=== PATIENT | female | born 1940 | race African-American/Black ===

== ENCOUNTER 2020-03-17 01:59 | Inpatient (IN) ==
[2020-03-17 02:22] VITALS: BMI 33.3
[2020-03-17 02:28] LABS: ABG BASE EXCESS 7.8 mmol/L (-2.0-2.0)
[2020-03-17 02:29] LABS: ABG ALLEN TEST POS; ABG HCO3 32.7 mmol/L (22-26)
[2020-03-17 03:08] LABS: ALBUMIN 2.9 g/dL (3.4-5.0); CALCIUM 9.1 mg/dL (8.5-10.1); CARBON DIOXIDE 31.1 mmol/L (21-32); CREATININE 1.17 mg/dL (0.55-1.02); TOTAL PROTEIN 7.7 g/dL (6.4-8.2)
[2020-03-17 03:14] LABS: BASOPHILS % (AUTO) 0.2 % (0.2-1.0); HEMATOCRIT 48.2 % (36.0-47.0); LYMPHOCYTES # (AUTO) 0.7 X10^3/uL (1.3-2.9); MEAN CORPUSCULAR HEMOGLOBIN 29.5 pg (27.0-34.0); MEAN CORPUSCULAR HGB CONC 33.2 g/dL (33.0-35.0); MEAN CORPUSCULAR VOLUME 88.9 fL (80.0-100.0); MEAN PLATELET VOLUME 8.7 fL (7.4-11.0); MONOCYTES # (AUTO) 0.7 x10^3/uL (0.3-0.8); MONOCYTES % (AUTO) 8.7 % (0.0-13.0); NEUTROPHILS # (AUTO) 6.9 x10^3/uL (2.2-4.8); NEUTROPHILS % (AUTO) 83.1 % (42.0-75.0); PLATELET COUNT 181 X10^3/uL (150.0-450.0); RED BLOOD COUNT 5.43 X10^6/uL (3.5-5.4); WHITE BLOOD COUNT 8.3 X10^3/uL (3.6-10.0)
[2020-03-17] MEDS ORDERED: SOLU-Medrol 125 MG VIAL IVP ONE (03:42)
--- NOTE | 2020-03-17 03:42 | DR.SOBA ---
HPI Time Seen Time Seen by Provider: 03/17/20 02:11 HPI Comment HPI Comment: Brought in by EMS for sob; diagnosed with covid by rapid at doctor's office 03/14/20; placed on Levaquin by er the day before; now with sats falling at home despite oxygen; cough with increased wob per daughter; no fever, chills, abd pain, n/v/d or le swelling; no cardiac hx. PMH PMH Past Medical History: Alzheimers, COPD, Dementia, Diabetes and Hypertension Past Surgical History: Yes Social History Do you use any recreational Drugs:: No ROS Review of Systems Neurological: Tingling Musculoskeletal: Left Unable to Obtain Due To: Dementia PE Vital Signs Vitals: Temperature 98.1 F Pulse Rate [Right Radial] 77 Pulse Rate 81 Respiratory Rate 30 Blood Pressure [Right Arm] 127/65 Blood Pressure 118/76 O2 Sat by Pulse Oximetry 93 General Limitations: No Limitations General Appearance: Alert and In No Apparent Distress Head Head Exam: Normal Inspection Eyes Eye exam: Normal Appearance ENT ENT Exam: Normal Exam Neck Neck Exam: Normal Inspection Chest Chest Inspection: Normal Inspection Respiratory Respiratory Exam: Bilateral: Decreased Breath Sounds Cardiovascular Cardiovascular Exam: Regular Rate and Normal Rhythm Abdominal Exam Abdominal Exam: Normal Inspection, Normal Bowel Sounds and Soft Extremities Extremities Exam: Normal Inspection Psychiatric Psychiatric Exam: Normal Affect and Normal Mood Skin Skin Exam: Warm, Dry, Intact and Normal Color COURSE Reevaluation 1st: Worsened (audible wheezing, increased wob) Consultation Call Returned: 07:37 (Dr Hyatt accepts admission.) ROR Labs Reviewed Laboratory Results Reviewed?: Yes Result Diagrams: 03/17/20 03:00 03/17/20 02:42 Laboratory: WBC 8.3 X10^3/uL (3.6-10.0) 03/17/20 03:00 RBC 5.43 X10^6/uL (3.5-5.4) H 03/17/20 03:00 Hgb 16.0 g/dL (12.0-16.0) 03/17/20 03:00 Hct 48.2 % (36.0-47.0) H 03/17/20 03:00 MCV 88.9 fL (80.0-100.0) 03/17/20 03:00 MCH 29.5 pg (27.0-34.0) 03/17/20 03:00 MCHC 33.2 g/dL (33.0-35.0) 03/17/20 03:00 RDW 13.0 % (11.6-16.5) 03/17/20 03:00 Plt Count 181 X10^3/uL (150.0-450.0) 03/17/20 03:00 MPV 8.7 fL (7.4-11.0) 03/17/20 03:00 Neut % (Auto) 83.1 % (42.0-75.0) H 03/17/20 03:00 Lymph % (Auto) 8.0 % (21.0-51.0) L 03/17/20 03:00 [place] % (Auto) 8.7 % (0.0-13.0) 03/17/20 03:00 Eos % (Auto) 0.0 % (0.9-2.9) L 03/17/20 03:00 Baso % (Auto) 0.2 % (0.2-1.0) 03/17/20 03:00 Neut # (Auto) 6.9 x10^3/uL (2.2-4.8) H 03/17/20 03:00 Lymph # (Auto) 0.7 X10^3/uL (1.3-2.9) L 03/17/20 03:00 [place] # (Auto) 0.7 x10^3/uL (0.3-0.8) 03/17/20 03:00 Eos # (Auto) 0.0 x10^3/uL (0.0-0.2) 03/17/20 03:00 Baso # (Auto) 0.0 X10^3/uL (0.0-0.1) 03/17/20 03:00 Absolute Nucleated RBC 0.1 /100WBC 03/17/20 03:00 D-Dimer Cancelled 03/17/20 02:42 Sample Site Rr 03/17/20 02:20 ABG pH 7.460 (7.35-7.45) H 03/17/20 02:20 ABG pCO2 46.0 mmHg (35.0-45.0) H 03/17/20 02:20 ABG pO2 53.0 mmHg (80.0-100.0) L 03/17/20 02:20 ABG HCO3 32.7 mmol/L (22-26) H* 03/17/20 02:20 ABG O2 Saturation 89.0 % (90-100) L 03/17/20 02:20 ABG Base Excess 7.8 mmol/L (-2.0-2.0) H 03/17/20 02:20 Dylon Test Pos 03/17/20 02:20 A-a Gradient 146.0 mmHg 03/17/20 02:20 FiO2 36.0 03/17/20 02:20 Blood Gas Comments Eladio well sw 03/17/20 02:20 Sodium 138 mmol/L (136-145) 03/17/20 02:42 Corrected Sodium 140 mmol/L (136-145) 03/17/20 02:42 Potassium 4.7 mmol/L (3.5-5.1) 03/17/20 02:42 Chloride 101 mmol/L (98-107) 03/17/20 02:42 Carbon Dioxide 31.1 mmol/L (21-32) 03/17/20 02:42 BUN 24 mg/dL (7-18) H 03/17/20 02:42 Creatinine 1.17 mg/dL (0.55-1.02) H 03/17/20 02:42 Est GFR (MDRD) Af Amer 58 (>60) L 03/17/20 02:42 Est GFR (MDRD) Non-Af 48 (>60) L 03/17/20 02:42 Glucose 191 mg/dL (65-99) H 03/17/20 02:42 POC Glucose (mg/dL) 195 mg/dL (65-99) H 03/17/20 05:53 Calcium 9.1 mg/dL (8.5-10.1) 03/17/20 02:42 Corrected Calcium 10.0 mg/dL (8.5-10.1) 03/17/20 02:42 Total Bilirubin 0.50 mg/dL (0.2-1.0) 03/17/20 02:42 AST 37 Units/L (15-37) 03/17/20 02:42 ALT 20 Units/L (12-78) 03/17/20 02:42 Alkaline Phosphatase 73 Units/L (46-116) 03/17/20 02:42 B-Natriuretic Peptide 55.6 pg/mL (0-79) 03/17/20 02:42 Total Protein 7.7 g/dL (6.4-8.2) 03/17/20 02:42 Albumin 2.9 g/dL (3.4-5.0) L 03/17/20 02:42 Globulin 4.8 g/dL (2.5-4.5) H 03/17/20 02:42 Albumin/Globulin Ratio 0.6 Ratio (1.1-2.1) L 03/17/20 02:42 XRAY XRAY Interpreted by: Self X-ray Results: cxr: bilateral infiltrates worsening since 03/13/20 xr Opioid Opioid Risk Tool Age (Pawan box if 16-45): No History of Preadolescent Sexual Abuse: No Total: 0 Total Score Risk Category: Low Risk Copyright: Cameron CARTAGENA predicting aberrant behaviors Diagnosis Discharge Problem: Pneumonia due to COVID-19 virus, Hypoxia, DNR (do not resuscitate) Dyspnea Qualifiers: Dyspnea type: shortness of breath Qualified Code(s): R06.02 - Shortness of breath Instructions Instructions: Shortness of Breath, Adult
[2020-03-17] MEDS ORDERED: ATIVAN INJ 2 MG VIAL ONE (03:56)
[2020-03-17] MEDS ORDERED: ATIVAN INJ 2 MG VIAL IVP ONE (04:00)
[2020-03-17] MEDS ORDERED: TESSALON PERLES PO PRN (05:07)
[2020-03-17] MEDS ORDERED: ACCUNEB 1.25 MG NEBULE NEB PRN (05:07)
[2020-03-17] MEDS ORDERED: TUSSIONEX PENNKINETIC SUSP PO PRN (05:07)
[2020-03-17] MEDS ORDERED: MAGIC MOUTHWASH MT PRN (05:07)
[2020-03-17] MEDS ORDERED: HumuLIN R SC PRN (05:13)
[2020-03-17] MEDS ORDERED: NS 250 ML IV 250 ML IV ONE (05:25)
[2020-03-17] MEDS ORDERED: REMDESIVIR IV ONE (05:25)
[2020-03-17] MEDS ORDERED: NS 1/2 1000 ML IV 1,000 ML IV ONE ×2 (05:26→22:26)
[2020-03-17] MEDS: REMDESIVIR 200 MG in NS 250 ML IV 250 ML IV ONE ×2 (05:40→05:55)
[2020-03-17] MEDS: NS 1/2 1000 ML IV 1,000 ML IV SCH ×3 (05:57→23:27)
[2020-03-17] MEDS ORDERED: PHARMACY CONSULT - IVERMECTIN XX SCH (06:00)
[2020-03-17] MEDS: ATIVAN INJ 2 MG VIAL IVP SCH ×4 (08:05→23:51)
[2020-03-17] MEDS ORDERED: LEVAQUIN PREMIX IV 500 MG 500 MG/100 ML BAG IV SCH (09:00)
[2020-03-17] MEDS ORDERED: ACTEMRA 400 MG in NS 100 ML IV 80 ML IV NR (10:30)
[2020-03-17] MEDS: PULMICORT NEB TX 0.5 MG NEB SCH ×2 (11:17→21:00)
[2020-03-17] MEDS: IVERMECTIN PO SCH (12:33)
[2020-03-17] MEDS: ZINC SULFATE PO SCH (12:34)
[2020-03-17] MEDS: VITAMIN D3 125 mcg (5,000 UNITS) PO SCH (12:34)
[2020-03-17] MEDS: LEVAQUIN PREMIX IV 750 MG 750 MG/150 ML BAG IV SCH (12:44)
[2020-03-17] MEDS: PEPCID 20 MG IV PREMIX* 10 MG/25 ML BAG IV SCH (12:44)
[2020-03-17] MEDS: ACCUNEB 1.25 MG NEBULE NEB SCH ×3 (13:48→21:00)
[2020-03-17] MEDS: HumuLIN R SUBCUT PRN ×2 (17:29→22:35)
[2020-03-17] MEDS: REMDESIVIR 100 MG in NS 250 ML IV 250 ML IV SCH (20:52)
[2020-03-17] MEDS: MUCOMYST (RESPIRATORY USE ONLY) NEB SCH (21:00)
[2020-03-17] MEDS: SNACK - Diabetic Appropriate PO SCH (21:41)
[2020-03-17] MEDS: MELATONIN PO SCH (22:35)
[2020-03-18] MEDS: ATIVAN INJ 2 MG VIAL IVP SCH ×7 (01:05→22:49)
[2020-03-18 03:49] LABS: ABG BASE EXCESS 9.1 mmol/L (-2.0-2.0)
[2020-03-18 03:51] LABS: ABG HCO3 35.5 mmol/L (22-26)
[2020-03-18] MEDS: SOLU-Medrol 125 MG VIAL IVP SCH ×4 (03:51→22:50)
[2020-03-18 03:52] LABS: ABG ALLEN TEST POSS
[2020-03-18] MEDS: HumuLIN R SUBCUT PRN ×3 (06:16→17:15)
[2020-03-18 06:24] LABS: BASOPHILS % (AUTO) 0.2 % (0.2-1.0); HEMATOCRIT 47.6 % (36.0-47.0); HEMOGLOBIN 15.6 g/dL (12.0-16.0); LYMPHOCYTES # (AUTO) 0.7 X10^3/uL (1.3-2.9); LYMPHOCYTES % (AUTO) 13.1 % (21.0-51.0); MEAN CORPUSCULAR HEMOGLOBIN 29.4 pg (27.0-34.0); MEAN CORPUSCULAR HGB CONC 32.7 g/dL (33.0-35.0); MEAN CORPUSCULAR VOLUME 89.6 fL (80.0-100.0); MEAN PLATELET VOLUME 9.4 fL (7.4-11.0); MONOCYTES # (AUTO) 0.6 x10^3/uL (0.3-0.8); MONOCYTES % (AUTO) 10.7 % (0.0-13.0); NEUTROPHILS # (AUTO) 4.2 x10^3/uL (2.2-4.8); PLATELET COUNT 200 X10^3/uL (150.0-450.0); RED BLOOD COUNT 5.31 X10^6/uL (3.5-5.4); RED CELL DISTRIBUTION WIDTH 13.3 % (11.6-16.5); WHITE BLOOD COUNT 5.6 X10^3/uL (3.6-10.0)
[2020-03-18 06:31] LABS: ALANINE AMINOTRANSFERASE 17 Units/L (12-78); ALBUMIN 2.6 g/dL (3.4-5.0); ALKALINE PHOSPHATASE 71 Units/L (46-116); ASPARTATE AMINO TRANSFERASE 27 Units/L (15-37); BLOOD UREA NITROGEN 23 mg/dL (7-18); CALCIUM 9.1 mg/dL (8.5-10.1); CHLORIDE 102 mmol/L (98-107); COR CA(FOR HYPOALB) 10.2 mg/dL (8.5-10.1); COR NA(FOR HYPERGLY) 143 mmol/L (136-145); CREATININE 0.99 mg/dL (0.55-1.02); SODIUM 140 mmol/L (136-145); TOTAL PROTEIN 7.4 g/dL (6.4-8.2); eGFR NON BLACK RACES 58 (>60)
--- NOTE | 2020-03-18 07:14 | RAD ---
HISTORYShortness of breathSTUDYChest AP [id number]/24/2021FINDINGSPatient is rotated to the left. The heart is mildly enlarged. No congestive heart failure is noted. The aorta is calcified. Diffuse bilateral interstitial and ground- glass infiltrates are unchanged in degree or distribution from the prior examination no pleural effus ions are identified. There is a skin fold paralleling right chest wall. Bony thorax is unremarkable.I MPRESSIONNo change diffuse bilateral interstitial and ground-glass infiltratesNo change mild cardiome izzy without congestive heart failureElectronically signed by: ARSEN MCPHERSON (Mar 18, 2020 07:13:03)
[2020-03-18] MEDS: VITAMIN D3 125 mcg (5,000 UNITS) PO SCH (08:49)
[2020-03-18] MEDS: PEPCID 20 MG IV PREMIX* 10 MG/25 ML BAG IV SCH (08:49)
[2020-03-18] MEDS: ZINC SULFATE PO SCH (08:49)
[2020-03-18] MEDS ORDERED: SOLU-Medrol 125 MG VIAL IVP SCH (09:00)
[2020-03-18] MEDS ORDERED: LOVENOX INJ 40 MG SYR SC SCH (09:00)
[2020-03-18] MEDS: ACCUNEB 1.25 MG NEBULE NEB SCH ×4 (09:25→20:35)
[2020-03-18] MEDS: PULMICORT NEB TX 0.5 MG NEB SCH ×2 (09:25→20:35)
[2020-03-18] MEDS: MUCOMYST (RESPIRATORY USE ONLY) NEB SCH ×2 (09:25→20:35)
[2020-03-18] MEDS ORDERED: VERSED ONE (11:17)
--- NOTE | 2020-03-18 11:23 | DR.H&P ---
H&P - History & Physical for Day of: H&P Date: 03/17/20 - Chief Complaint Chief Complaint: FEVER, WEAKNESS, COUGH, SOB, DECREASED APPETITE, DECREASED OXYGEN, COVID POSITIVE - History of Present Illness History of Present Illness: IS A 79 YEAR OLD PATIENT OF [facility]. SHE PRESENTED TO THE ER WITH COMPLAINTS OF FEVER, WEAKNESS, DECREASED APPETITE, COUGH, SHORTNESS OF BREATH, AND DECREASED OXYGEN SATURATIONS. SHE REPORTS THAT HER OXYGEN SATURATIONS AT HOME HAVE BEEN IN THE LOWER 80s ON ROOM AIR. SHE REPORTS TESTING POSITIVE FOR COVID-19 ON 03/14/20. AT THAT TIME, SHE WAS PLACED ON LEVAQUIN, IVERMECTIN X 2 DOSES, AZITHROMYCIN 500MG PO DAILY. SHE DENIES IMPROVEMENT DESPITE COMPLIANCE WITH MEDS AND COMPLAINS OF WORSENING SYMPTOMS. PMH INCLUDES DEMENTIA, ALZHEIMERS, HYPERLIPIDEMIA, HTN, COPD, GERD, DM II. UPON ARRIVAL TO THE ER, PATIENT WAS ON ROOM AIR. HER VITAL SIGNS WERE 98.2-90-26-89%-154/74. SHE WAS PLACED ON NASAL CANNULA AT 2 LPM. HER SATURATIONS INCREASED TO 97%. LABS WERE OBTAINED. ABNORMAL LAB VALUES INCLUDE THE FOLLOWING: RBC 5.43, HCT 48.2, D-DIMER 2.94, BUN 24, CREATININE 1.17, GLUCOSE 191, FERRITIN 774, CRP 125.10, ALBUMIN 2.9, GLOBULIN 4.8. AN ABG WAS OBTAINED AND REVEALED: PH 7.460, PC02 46, P02 53, HC03 32.7, 02 SAT 89, BASE EXCESS 7.8, A-A GRADIENT 146, FI02 36. COVID-19 POSITIVE. A CHEST XRAY WAS OBTAINED AND REVEALED: No change diffuse bilateral interstitial and ground-glass infiltrates. No change mild cardiomegaly without congestive heart failure. IN THE ER, SHE WAS GIVEN A SOLU- MEDROL 125MG IV X 1, ATIVAN 1MG IV X 1, REMDESIVIR 200MG IV X 1. SHE WAS ADMITTED TO THE HOSPITAL FOR PNEUMONIA DUE TO COVID-19 AND HYPOXIA. SHE WAS STARTED ON NS AT 75ML/HR, REMDESIVIR 100MG IV DAILY, ACTEMRA 400MG IV X 1 DOSE, LEVAQUIN 750MG IV Q48, PULMICORT NEB TX BID, ALBUTEROL NEB TX QID, MUCOMYST IN NEBS QID, XANAX 0.5MG PO DAILY PRN, ATORVASTATIN 80MG PO HS, TESSALON PERLES TID, TUSSIONEX 5ML PO Q12H PRN, DIFLUCAN 100MG PO DAILY, IVERMECTIN- PHARMACY TO DOSE, MAGIC MOUTHWASH QID, MILK OF MAG 30ML PO BID, COLACE 100MG PO HS, MELATONIN 10MG PO HS, SOLU-MEDROL 125MG IV Q6H, SINGULAIR 10MG PO HS, PROTONIX 40MG IV BID, THIAMINE 200MG IV BID, ZINC SULFATE 220MG PO DAILY, ZYRTEC 10MG PO HS, VITAMIN D3 DAILY, PEPCID 20MG IV DAILY, LOVENOX DAILY, ATIVAN 1MG IV Q4H MAGDALENA, AND HUMULIN R SLIDING SCALE. WE WILL OBTAIN AN ECHO AND ORDER A UNIT OF CONVALESCENT PLASMA. OTHERWISE, WE PLAN TO FOLLOW UP WITH AM L ABS, CHEST XRAY, ABG, AND CONTINUE TO MONITOR. TIME SPENT ON CLINICAL ASSESSMENT, REVIEWING LABS AND IMAGING, DECISION MAKING, AND DOCUMENTATION GREATER THAN 75 MINUTES - Past Medical History Past Medical History: Alzheimers, COPD, Dementia, Diabetes, Dyslipidemia, GERD, Hypertension - Past Surgical History Surgical History: Unknown - Family History Family Medical History: Coronary Artery Disease, Hypertension - Social History Does patient currently use any type of tobacco product: No Have you used tobacco products in the last 12 months: No Type of Tobacco Use: None Does any household member use tobacco: No Alcohol Use: None Drug Use: None - Medications Home Medications: No Known Drug Allergies Allergy (Verified 03/13/20 15:38) - Review of Systems Constitutional: Fever, Chills, Weakness Eyes: No Symptoms Reported ENT: No Symptoms Reported Respiratory: Cough, Shortness of Breath, SOB with Excertion, Wheezing Cardiovascular: No Symptoms Reported Gastrointestinal: No Symptoms Reported Genitourinary: No Symptoms Reported Musculoskeletal: No Symptoms Reported Skin: No Symptoms Reported Neurological: Weakness, Confusion - Physical Exam Vital Signs: Temperature 97.8 F Pulse Rate [Right Radial] 71 Pulse Rate 80 Respiratory Rate 30 Blood Pressure [Right Arm] 115/65 Blood Pressure 118/76 O2 Sat by Pulse Oximetry 94 Oriented: Person Eyes: Normal Ear: Normal Nose: Normal Throat: Normal Respiratory: Wheezes Throughout Cardiovascular: Normal : Normal Auscultation: Bowel Sounds: Normal Palpation: Normal Tenderness: Normal Skin: Normal Musculoskeletal: Normal Psychiatric: Normal Mood Description: Calm Affect: Normal Speech Pattern: Inappropriate - Assessment/Plan (1) Pneumonia due to COVID-19 virus Status: Acute Plan: ADMIT, NS AT 75ML/HR, REMDESIVIR 100MG IV DAILY, ACTEMRA 400MG IV X 1 DOSE, LEVAQUIN 750MG IV Q48, PULMICORT NEB TX BID, ALBUTEROL NEB TX QID, MUCOMYST IN NEBS QID, XANAX 0.5MG PO DAILY PRN, ATORVASTATIN 80MG PO HS, TESSALON PERLES TID, TUSSIONEX 5ML PO Q12H PRN, DIFLUCAN 100MG PO DAILY, I VERMECTIN- PHARMACY TO DOSE, MAGIC MOUTHWASH QID, MILK OF MAG 30ML PO BID, COLACE 100MG PO HS, MELATONIN 10MG PO HS, SOLU-MEDROL 125MG IV Q6H, SINGULAIR 10MG PO HS, PROTONIX 40MG IV BID, THIAMINE 200MG IV BID, ZINC SULFATE 220MG PO DAILY, ZYRTEC 10MG PO HS, VITAMIN D3 DAILY, PEPCID 20MG IV DAILY, LOVENOX DAILY, ATIVAN 1MG IV Q4H MAGDALENA, AND HUMULIN R SLIDING SCALE (2) Hypoxia Status: Acute - Allergies Allergies/Adverse Reactions: Allergies Allergy/AdvReac Type Severity Reaction Status Date / Time No Known Drug Allergies Allergy Verified 03/13/20 15:38
--- NOTE | 2020-03-18 12:09 | DR.UPDATE ---
H&P Update History and Physical Update: History and Physical reviewed and patient examined. Changes noted: NO Yes with the following: agree with H&P.... will place central line H&P Reviewed: Yes Patient was examined?: Yes Procedures (ALL) - Central Line Placement PCM.CLCO: written consent Time out performed: Yes Patient placed pm monitor/pulse ox: Yes MD prep: mask, gown, gloves Centrial line prep: chlorhexidine scrub, sterile drapes applied Local anesthsia used: lidocane 1% Ultrasound used for placement: Yes (right IJ Id'd via US...canulation visualized) Central line lumen ininserted: triple Post procedure: sutured in place, good blood return, all ports aspirated, flushed,capped, sterile dressing applied Post procedure xray: tip oc catheter in good position, no pneumothorax seen Patient tolerated procedure: Yes (versed 2mg given per Anesthesia) Complications: none
--- NOTE | 2020-03-18 12:25 | RAD ---
HISTORYCentral line placementSTUDYChest AP [id number] January 2021 4:08 a.m.FINDINGSThere is a right IJ line in good position within the superior vena cava. Heart is mildly enlarged. No congestive heart failure is noted. Diffuse bilateral interstitial and ground-glass infiltrates are unchanged compared with the earlier examination. No pleural effusions are identified. Bony thorax is unremarkable.IMPRESSIONRight IJ line in good positionNo change bilateral infiltratesElectronically signed by: ARSEN MCPHERSON (Mar 18, 2020 12:22:58)
[2020-03-18] MEDS ORDERED: HEPARIN SODIUM INJ 5000 UNITS ONE (13:26)
[2020-03-18] MEDS ORDERED: HEPARIN SODIUM INJ 5000 UNITS IVP ONE (13:30)
[2020-03-18] MEDS: HEPARIN SODIUM IN D5W 25,000 UNITS/500 ML BAG IV PRN (13:30)
[2020-03-18] MEDS ORDERED: NS 1/2 1000 ML IV 1,000 ML IV ONE (14:02)
[2020-03-18] MEDS: NS 1/2 1000 ML IV 1,000 ML IV SCH (14:11)
[2020-03-18] MEDS: ASCORBIC ACID INJ MULTI-DOSE VIAL 1,500 MG in NS 50 ML IV 50 ML IV SCH ×3 (14:15→22:50)
[2020-03-18] MEDS: PROTONIX INJ 40 MG VIAL IVP SCH ×2 (14:16→22:45)
[2020-03-18] MEDS: TESSALON PERLES PO SCH ×3 (14:16→22:45)
[2020-03-18] MEDS: ZyrTEC TAB 10 MG PO SCH (14:17)
[2020-03-18] MEDS: THIAMINE HCL INJ IVP SCH ×2 (14:18→22:50)
[2020-03-18] MEDS: DIFLUCAN PO SCH (16:15)
[2020-03-18] MEDS: MILK OF MAGNESIA PO SCH ×2 (16:15→22:59)
[2020-03-18] MEDS ORDERED: MORPHINE SULFATE INJ 2 MG INJ IVP PRN ×2 (16:16→16:32)
[2020-03-18 16:21] LABS: BILIRUBIN,URINE NEGATIVE (NEGATIVE); BLOOD/HEMOGLOBIN,URINE NEGATIVE (NEGATIVE); GLUCOSE, URINE NEGATIVE (NEGATIVE); KETONES,URINE NEGATIVE (NEGATIVE); LEUKOCYTE ESTERASE ,URINE NEGATIVE (NEGATIVE); NITRITES,URINE NEGATIVE (NEGATIVE); PROTEIN,URINE 1+ (NEGATIVE); UROBILINOGEN,URINE NORMAL (NORMAL)
[2020-03-18] MEDS ORDERED: MORPHINE SULFATE INJ 2 MG INJ ONE (16:21)
[2020-03-18 16:30] LABS: APPEARANCE,URINE CLEAR (CLEAR); COLOR,URINE YELLOW (YELLOW); RBC,URINE NONE SEEN /HPF (0-3)
[2020-03-18 16:31] LABS: BACTERIA,URINE NEGATIVE /HPF (NEGATIVE); COARSE GRANULAR CASTS,URINE RARE /HPF (NEGATIVE); SQUAMOUS EPITHELIAL CELL,UR NEGATIVE /HPF (NEGATIVE)
[2020-03-18] MEDS: SINGULAIR TAB 10 MG PO SCH (22:51)
[2020-03-18] MEDS: REMDESIVIR 100 MG in NS 250 ML IV 250 ML IV SCH (22:51)
[2020-03-18] MEDS: MELATONIN PO SCH (23:00)
[2020-03-18] MEDS: LIPITOR TAB 80 MG PO SCH (23:00)
[2020-03-18] MEDS: COLACE CAP 100 MG PO SCH (23:01)
[2020-03-19] MEDS: NS 1/2 1000 ML IV 1,000 ML IV SCH ×3 (00:28→23:18)
[2020-03-19] MEDS: ATIVAN INJ 2 MG VIAL IVP SCH ×6 (00:30→21:29)
[2020-03-19] MEDS: SOLU-Medrol 125 MG VIAL IVP SCH ×4 (03:00→21:30)
[2020-03-19] MEDS: ASCORBIC ACID INJ MULTI-DOSE VIAL 1,500 MG in NS 50 ML IV 50 ML IV SCH ×4 (03:00→21:30)
[2020-03-19] MEDS ORDERED: NS 1/2 1000 ML IV 1,000 ML IV ONE ×2 (04:42→23:10)
[2020-03-19 04:47] LABS: ABG BASE EXCESS 7.6 mmol/L (-2.0-2.0)
[2020-03-19 04:48] LABS: ABG ALLEN TEST POS; ABG HCO3 34.7 mmol/L (22-26)
[2020-03-19] MEDS: TESSALON PERLES PO SCH ×3 (06:18→21:31)
[2020-03-19] MEDS: HumuLIN R SUBCUT PRN ×4 (07:14→23:27)
--- NOTE | 2020-03-19 07:21 | RAD ---
HISTORYReason For StudySTUDYCHEST, 1 VIEWCOMPARISONOne day prior.TECHNIQUEAP view of the chest, 2 imagesFINDINGSRight IJ central line in good position.The cardiac and mediastinal contours appear stable. No significant change in bilateral airspace and interstitial opacities. Interface at the upper peripheral right lung is favored to be a skin fold rather than pneumothorax. No large pleural effusion.IMPRESSIONInterface at the right upper lung is favored to be a skin fold rather than pneumothorax. Consider short interval repeat. Otherwise no significant change.Electronically signed by: Alf Smith (Mar 19, 2020 07:20:12)
[2020-03-19] MEDS: SNACK - Diabetic Appropriate PO SCH ×2 (07:39→23:18)
[2020-03-19] MEDS: ACCUNEB 1.25 MG NEBULE NEB SCH ×4 (08:01→20:50)
[2020-03-19] MEDS: PULMICORT NEB TX 0.5 MG NEB SCH ×2 (08:01→20:50)
[2020-03-19] MEDS: MUCOMYST (RESPIRATORY USE ONLY) NEB SCH ×2 (08:01→20:50)
--- NOTE | 2020-03-19 09:02 | PCM.PROG ---
Progress Note - Progress Note for Day of Date of Exam: 03/18/20 - Subjective Subjective: IS BEING TREATED FOR PNEUMONIA DUE TO COVID-19 AND HYPOXIA. TODAY, SHE IS LYING IN BED WITH EYES CLOSED ON MORNING ROUNDS. SHE OPENS EYES TO VERBAL STIMULI, BUT SHE IS DISORIENTED AND DOES NOT FOLLOW COMMANDS. STAFF REPORTS THAT SHE HAS BEEN DISORIENTED AND AGITATED THROUGHOUT THE NIGHT. SHE DOES HAVE A PMH OF DEMENTIA AND ALZHEIMERS. SHE CONTINUES WITH WEAKNESS AND A NON-PRODUCTIVE COUGH THIS MORNING. SHE REMAINS ON NASAL CANNULA AT 5-6 LITERS/MINUTE. HER SATURATIONS HAVE BEEN 90-96% THIS MORNING AND THROUGHOUT THE NIGHT. ON EXAMINATION, HEART IS REGULAR IN RATE AND RHYTHM. BILATERAL LUNGS ARE NOTED WITH RALES THROUGHOUT. ABDOMEN IS ROUND, SOFT, AND NON-TENDER WITH NORMAL BOWEL SOUNDS NOTED IN ALL QUADRANTS. HER VITALS THIS MORNING ARE: 97.7-78-40-95%-142/71. LABS WERE OBTAINED. ABNORMAL LAB VALUES INCLUDE THE FOLLOWING: HCT 47.6, D-DIMER 4.88, BUN 23, GLUCOSE 219, CORRECTED CALCIUM 10.2, FERRITIN 993, CRP 119.50, ALBUMIN 2.6, GLOBULIN 4.8. BLOOD CULTURES ARE PENDING. ABG WAS OBTAINED AND REVEALED: PH 7.470, PC02 26, P02 63, HC03 18.9, 02 SAT 93, A-A GRADIENT 218, FI02 44. A CHEST XRAY WAS OBTAINED AND REVEALED: Right IJ line in good position. No change bilateral infiltrates. SHE IS CURRENTLY RECEIVING NS AT 75ML/HR, REMDESIVIR 100MG IV DAILY, ACTEMRA 400MG IV X 1 DOSE, LEVAQUIN 750MG IV Q48, PULMICORT NEB TX BID, ALBUTEROL NEB TX QID, MUCOMYST IN NEBS QID, XANAX 0.5MG PO DAILY PRN, ATORVASTATIN 80MG PO HS, TESSALON PERLES TID, TUSSIONEX 5ML PO Q12H PRN, DIFLUCAN 100MG PO DAILY, IVERMECTIN- PHARMACY TO DOSE, MAGIC MOUTHWASH QID, MILK OF MAG 30ML PO BID, COLACE 100MG PO HS, MELATONIN 10MG PO HS, SOLU-MEDROL 125MG IV Q6H, SINGULAIR 10MG PO HS, PROTONIX 40MG IV BID, THIAMINE 200MG IV BID, ZINC SULFATE 220MG PO DAILY, ZYRTEC 10MG PO HS, VITAMIN D3 DAILY, PEPCID 20MG IV DAILY, LOVENOX DAILY, ATIVAN 1MG IV Q4H MAGDALENA, AND HUMULIN R SLIDING SCALE. WE HAVE ORDERED ONE UNIT OF CONVALESCENT PLAMA TO BE TRANSFUSED WHEN IT IS AVAILABLE. WE WILL DISCONTINUE LOVENOX AND START A HEPARIN DRIP. OTHERWISE,WE PLAN TO FOLLOW UP WITH AM LABS, CHEST XRAY, ABG, AND CONTINUE TO MONITOR. TIME SPENT ON CLINICAL ASSESSMENT, REVIEWING LABS AND IMAGING, DECISION MAKING, AND DOCUMENTATION GREATER THAN 75 MINUTES - Past Medical Family Social History Allergies: Allergies No Known Drug Allergies Allergy (Verified 03/13/20 15:38) - Vital Signs and I&O's Vital Signs: Temperature 97.5 F Pulse Rate [Right Radial] 83 Pulse Rate 79 Respiratory Rate 36 Blood Pressure [Right Arm] 168/75 Blood Pressure 118/76 O2 Sat by Pulse Oximetry 97 Intake and Output: Intake & Output 03/16/20 03/17/20 03/18/20 03/19/20 11:59 11:59 11:59 11:59 Intake Total 980 / 980 1415 / 1415 Balance 980 / 980 1415 / 1415 - Physical Exam Oriented: Not Oriented Eyes: Normal Ear: Normal Nose: Normal Throat: Normal Respiratory: Diminished, Rales Cardiovascular: Normal : Normal Auscultation: Bowel Sounds: Normal Palpation: Normal Tenderness: Normal Skin: Normal Musculoskeletal: Normal Psychiatric: Normal Mood Description: Calm Affect: Normal Speech Pattern: Unclear - Laboratory and Diagnostics Result Diagrams: 03/18/20 05:00 03/18/20 05:00 Labs: Laboratory WBC 5.6 X10^3/uL (3.6-10.0) 03/18/20 05:00 RBC 5.31 X10^6/uL (3.5-5.4) 03/18/20 05:00 Hgb 15.6 g/dL (12.0-16.0) 03/18/20 05:00 Hct 47.6 % (36.0-47.0) H 03/18/20 05:00 MCV 89.6 fL (80.0-100.0) 03/18/20 05:00 MCH 29.4 pg (27.0-34.0) 03/18/20 05:00 MCHC 32.7 g/dL (33.0-35.0) L 03/18/20 05:00 RDW 13.3 % (11.6-16.5) 03/18/20 05:00 Plt Count 200 X10^3/uL (150.0-450.0) 03/18/20 05:00 MPV 9.4 fL (7.4-11.0) 03/18/20 05:00 Neut % (Auto) 76.0 % (42.0-75.0) H 03/18/20 05:00 Lymph % (Auto) 13.1 % (21.0-51.0) L 03/18/20 05:00 [place] % (Auto) 10.7 % (0.0-13.0) 03/18/20 05:00 Eos % (Auto) 0.0 % (0.9-2.9) L 03/18/20 05:00 Baso % (Auto) 0.2 % (0.2-1.0) 03/18/20 05:00 Neut # (Auto) 4.2 x10^3/uL (2.2-4.8) 03/18/20 05:00 Lymph # (Auto) 0.7 X10^3/uL (1.3-2.9) L 03/18/20 05:00 [place] # (Auto) 0.6 x10^3/uL (0.3-0.8) 03/18/20 05:00 Eos # (Auto) 0.0 x10^3/uL (0.0-0.2) 03/18/20 05:00 Baso # (Auto) 0.0 X10^3/uL (0.0-0.1) 03/18/20 05:00 Absolute Nucleated RBC 0.3 /100WBC 03/18/20 05:00 PT 14.4 SECONDS (11.8-14.3) 03/18/20 05:00 INR Target Range - 03/18/20 05:00 INR 1.15 (0.8-1.3) 03/18/20 05:00 APTT 92.8 SECONDS (22.9-36.5) H 03/19/20 01:45 PTT Comment - 03/19/20 01:45 D-Dimer 4.88 ug/ml (0.0-0.57) H* 03/18/20 05:00 Sample Site Rr 03/19/20 04:40 ABG pH 7.370 (7.35-7.45) 03/19/20 04:40 ABG pCO2 60.0 mmHg (35.0-45.0) H* 03/19/20 04:40 ABG pO2 58.0 mmHg (80.0-100.0) L 03/19/20 04:40 ABG HCO3 34.7 mmol/L (22-26) H* 03/19/20 04:40 ABG O2 Saturation 89.0 % (90-100) L 03/19/20 04:40 ABG Base Excess 7.6 mmol/L (-2.0-2.0) H 03/19/20 04:40 Dylon Test Pos 03/19/20 04:40 A-a Gradient 152.0 mmHg 03/19/20 04:40 FiO2 40.0 03/19/20 04:40 Blood Gas Comments Eladio kalina, 03/19/20 04:40 Sodium 140 mmol/L (136-145) 03/18/20 05:00 Corrected Sodium 143 mmol/L (136-145) 03/18/20 05:00 Potassium 4.8 mmol/L (3.5-5.1) 03/18/20 05:00 Chloride 102 mmol/L (98-107) 03/18/20 05:00 Carbon Dioxide 31.0 mmol/L (21-32) 03/18/20 05:00 BUN 23 mg/dL (7-18) H 03/18/20 05:00 Creatinine 0.99 mg/dL (0.55-1.02) 03/18/20 05:00 Est GFR (MDRD) Af Amer > 60 (>60) 03/18/20 05:00 Est GFR (MDRD) Non-Af 58 (>60) L 03/18/20 05:00 Glucose 219 mg/dL (65-99) H 03/18/20 05:00 POC Glucose (mg/dL) 240 mg/dL (65-99) H 03/19/20 06:24 Calcium 9.1 mg/dL (8.5-10.1) 03/18/20 05:00 Corrected Calcium 10.2 mg/dL (8.5-10.1) H 03/18/20 05:00 Ferritin 993 ng/mL (8-252) H 03/18/20 05:00 Total Bilirubin 0.50 mg/dL (0.2-1.0) 03/18/20 05:00 AST 27 Units/L (15-37) 03/18/20 05:00 ALT 17 Units/L (12-78) 03/18/20 05:00 Alkaline Phosphatase 71 Units/L (46-116) 03/18/20 05:00 C-Reactive Protein 119.50 mg/L (0-3.0) H 03/18/20 05:00 B-Natriuretic Peptide 43.8 pg/mL (0-79) 03/18/20 05:00 Total Protein 7.4 g/dL (6.4-8.2) 03/18/20 05:00 Albumin 2.6 g/dL (3.4-5.0) L 03/18/20 05:00 Globulin 4.8 g/dL (2.5-4.5) H 03/18/20 05:00 Albumin/Globulin Ratio 0.5 Ratio (1.1-2.1) L 03/18/20 05:00 Specimen Type Catherized urine 03/18/20 16:00 Urine Color Yellow (YELLOW) 03/18/20 16:00 Urine Appearance Clear (CLEAR) 03/18/20 16:00 Urine pH 6.0 (5.0 - 8.0) 03/18/20 16:00 Ur Specific [place] 1.025 (1.000-1.030) 03/18/20 16:00 Urine Protein 1+ (NEGATIVE) 03/18/20 16:00 Urine Glucose (UA) Negative (NEGATIVE) 03/18/20 16:00 Urine Ketones Negative (NEGATIVE) 03/18/20 16:00 Urine Occult Blood Negative (NEGATIVE) 03/18/20 16:00 Urine Nitrite Negative (NEGATIVE) 03/18/20 16:00 Urine Bilirubin Negative (NEGATIVE) 03/18/20 16:00 Urine Urobilinogen Normal (NORMAL) 03/18/20 16:00 Ur Leukocyte Esterase Negative (NEGATIVE) 03/18/20 16:00 Urine RBC None seen /HPF (0-3) 03/18/20 16:00 Urine WBC None seen /HPF (0-5) 03/18/20 16:00 Ur Squamous Epith Cells Negative /HPF (NEGATIVE) 03/18/20 16:00 Urine Bacteria Negative /HPF (NEGATIVE) 03/18/20 16:00 Coarse Granular Casts Rare /HPF (NEGATIVE) 03/18/20 16:00 Ur Culture Indicated? No/not indicated 03/18/20 16:00 Blood Type A POSITIVE 03/17/20 11:00 - Plan (1) Pneumonia due to COVID-19 virus Status: Acute Plan: NS AT 75ML/HR, REMDESIVIR 100MG IV DAILY, ACTEMRA 400MG IV X 1 DOSE, LEVAQUIN 750MG IV Q48, PULMICORT NEB TX BID, ALBUTEROL NEB TX QID, MUCOMYST IN NEBS QID, XANAX 0.5MG PO DAILY PRN, ATORVASTATIN 80MG PO HS, TESSALON PERLES TID, TUSSIONEX 5ML PO Q12H PRN, DIFLUCAN 100MG PO DAILY, IVERMECTIN- PHARMACY TO DOSE, MAGIC MOUTHWASH QID, MILK OF MAG 30ML PO BID, COLACE 100MG PO HS, MELATONIN 10MG PO HS, SOLU-MEDROL 125MG IV Q6H, SINGULAIR 10MG PO HS, PROTONIX 40MG IV BID, THIAMINE 200MG IV BID, ZINC SULFATE 220MG PO DAILY, ZYRTEC 10MG PO HS, VITAMIN D3 DAILY, PEPCID 20MG IV DAILY, HEPARIN DRIP, ATIVAN 1MG IV Q4H MAGDALENA, AND HUMULIN R SLIDING SCALE (2) Hypoxia Status: Acute
[2020-03-19 09:04] LABS: BASOPHILS % (AUTO) 0.3 % (0.2-1.0); HEMATOCRIT 44.8 % (36.0-47.0); HEMOGLOBIN 14.6 g/dL (12.0-16.0); LYMPHOCYTES # (AUTO) 0.4 X10^3/uL (1.3-2.9); LYMPHOCYTES % (AUTO) 6.6 % (21.0-51.0); MEAN CORPUSCULAR HEMOGLOBIN 29.2 pg (27.0-34.0); MEAN CORPUSCULAR HGB CONC 32.5 g/dL (33.0-35.0); MEAN CORPUSCULAR VOLUME 89.8 fL (80.0-100.0); MEAN PLATELET VOLUME 8.9 fL (7.4-11.0); MONOCYTES # (AUTO) 0.5 x10^3/uL (0.3-0.8); MONOCYTES % (AUTO) 7.2 % (0.0-13.0); NEUTROPHILS # (AUTO) 5.8 x10^3/uL (2.2-4.8); NEUTROPHILS % (AUTO) 85.9 % (42.0-75.0); PLATELET COUNT 229 X10^3/uL (150.0-450.0); RED BLOOD COUNT 4.99 X10^6/uL (3.5-5.4); RED CELL DISTRIBUTION WIDTH 13.1 % (11.6-16.5); WHITE BLOOD COUNT 6.8 X10^3/uL (3.6-10.0)
[2020-03-19 09:24] LABS: ALANINE AMINOTRANSFERASE 17 Units/L (12-78); ALBUMIN 2.3 g/dL (3.4-5.0); ALKALINE PHOSPHATASE 60 Units/L (46-116); ASPARTATE AMINO TRANSFERASE 19 Units/L (15-37); BLOOD UREA NITROGEN 23 mg/dL (7-18); CALCIUM 8.5 mg/dL (8.5-10.1); CARBON DIOXIDE 29.7 mmol/L (21-32); CHLORIDE 104 mmol/L (98-107); COR CA(FOR HYPOALB) 9.9 mg/dL (8.5-10.1); COR NA(FOR HYPERGLY) 145 mmol/L (136-145); CREATININE 1.03 mg/dL (0.55-1.02); SODIUM 141 mmol/L (136-145); TOTAL PROTEIN 6.4 g/dL (6.4-8.2); eGFR NON BLACK RACES 55 (>60)
[2020-03-19] MEDS: DIFLUCAN PO SCH (09:44)
[2020-03-19] MEDS: MILK OF MAGNESIA PO SCH ×2 (09:44→21:40)
[2020-03-19] MEDS: LEVAQUIN PREMIX IV 750 MG 750 MG/150 ML BAG IV SCH (09:44)
[2020-03-19] MEDS: PEPCID 20 MG IV PREMIX* 10 MG/25 ML BAG IV SCH (09:45)
[2020-03-19] MEDS: THIAMINE HCL INJ IVP SCH (09:45)
[2020-03-19] MEDS: PROTONIX INJ 40 MG VIAL IVP SCH ×2 (09:45→21:32)
[2020-03-19] MEDS: VITAMIN D3 125 mcg (5,000 UNITS) PO SCH (09:45)
[2020-03-19] MEDS: ZyrTEC TAB 10 MG PO SCH (09:46)
[2020-03-19] MEDS: ZINC SULFATE PO SCH (09:46)
[2020-03-19] MEDS: HEPARIN SODIUM IN D5W 25,000 UNITS/500 ML BAG IV PRN (11:57)
--- NOTE | 2020-03-19 12:03 | PCM.PROG ---
Progress Note - Progress Note for Day of Date of Exam: 03/19/20 - Subjective Subjective: IS BEING TREATED FOR PNEUMONIA DUE TO COVID-19 AND HYPOXIA. TODAY, SHE IS LYING IN BED WITH EYES CLOSED ON MORNING ROUNDS. SHE OPENS EYES TO VERBAL STIMULI, BUT SHE IS DISORIENTED AND DOES NOT FOLLOW COMMANDS. STAFF REPORTS THAT SHE CONTINUED WITH DISORIENTATION AND AGITATION THROUGHOUT THE NIGHT. SHE DOES HAVE A PMH OF DEMENTIA AND ALZHEIMERS. SHE CONTINUES WITH WEAKNESS AND A NON-PRODUCTIVE COUGH THIS MORNING. SHE REMAINS ON NASAL CANNULA AT 5 LITERS/MINUTE. HER SATURATIONS HAVE BEEN 86-95% THIS MORNING AND THROUGHOUT THE NIGHT. ON EXAMINATION, HEART IS REGULAR IN RATE AND RHYTHM. BILATERAL LUNGS ARE NOTED WITH RALES THROUGHOUT. ABDOMEN IS ROUND, SOFT, AND NON-TENDER WITH N ORMAL BOWEL SOUNDS NOTED IN ALL QUADRANTS. HER VITALS THIS MORNING ARE: 97.5-82-36-92%NC-142/73. LABS WERE OBTAINED. ABNORMAL LAB VALUES INCLUDE THE FOLLOWING: D-DIMER 3.08, BUN 23, CREATININE 1.03, GLUCOSE 261, FERRITIN 970, CRP 44, ALBUMIN 2.3. BLOOD CULTURES ARE PENDING. ABG WAS OBTAINED AND REVEALED: PH 7.470, PC02 26, P02 63, HC03 18.9, 02 SAT 93, A-A GRADIENT 218, FI02 44. A CHEST XRAY WAS OBTAINED AND REVEALED: Interface at the right upper lung is favored to be a skin fold rather than pneumothorax. Consider short interval repeat. Otherwise no significant change. SHE IS CURRENTLY RECEIVING NS AT 75ML/HR, REMDESIVIR 100MG IV DAILY, ACTEMRA 400MG IV X 1 DOSE, LEVAQUIN 750MG IV Q48, PUL MICORT NEB TX BID, ALBUTEROL NEB TX QID, MUCOMYST IN NEBS QID, XANAX 0.5MG PO DAILY PRN, ATORVASTATIN 80MG PO HS, TESSALON PERLES TID, TUSSIONEX 5ML PO Q12H PRN, DIFLUCAN 100MG PO DAILY, IVERMECTIN- PHARMACY TO DOSE, MAGIC MOUTHWASH QID, MILK OF MAG 30ML PO BID, COLACE 100MG PO HS, MELATONIN 10MG PO HS, SOLU-MEDROL 125MG IV Q6H, SINGULAIR 10MG PO HS, PROTONIX 40MG IV BID, THIAMINE 200MG IV BID, ZINC SULFATE 220MG PO DAILY, ZYRTEC 10MG PO HS, VITAMIN D3 DAILY, PEPCID 20MG IV DAILY, HEPARIN DRIP, ATIVAN 1MG IV Q4H MAGDALENA, AND HUMULIN R SLIDING SCALE. WE WILL ADD GEODON 20MG IM BID. WE HAVE ORDERED ONE UNIT OF [facility] TO BE TRANSFUSED WHEN IT IS AVAILABLE. OTHERWISE, WE PLAN TO FOLLOW UP WITH AM LABS, CHEST XRAY, ABG, AND CONTINUE TO MONITOR. TIME SPENT ON CLINICAL ASSESSMENT, REVIEWING LABS AND IMAGING, DECISION MAKING, AND DOCUMENTATION GREATER THAN 75 MINUTES - Past Medical Family Social History Past Med/Fam/Surg Hx: No changes since H&P Allergies: Allergies No Known Drug Allergies Allergy (Verified 03/13/20 15:38) - Review of Systems ROS: No change since H&P - Vital Signs and I&O's Vital Signs: Temperature 97.5 F Pulse Rate [Right Radial] 82 Pulse Rate 79 Respiratory Rate 40 Blood Pressure [Right Arm] 122/71 Blood Pressure 118/76 O2 Sat by Pulse Oximetry 86 Intake and Output: Intake & Output 03/17/20 03/18/20 03/19/20 03/20/20 11:59 11:59 11:59 11:59 Intake Total 980 / 980 1675 / 1675 Balance 980 / 980 1675 / 1675 - Physical Exam Oriented: Not Oriented Eyes: Normal Ear: Normal Nose: Normal Throat: Normal Respiratory: Diminished, Rales Cardiovascular: Normal : Normal Auscultation: Bowel Sounds: Normal Palpation: Normal Tenderness: Normal Skin: Normal Musculoskeletal: Normal Psychiatric: Agitation Mood Description: Anxious Affect: Anxious Speech Pattern: Unclear - Laboratory and Diagnostics Result Diagrams: 03/19/20 08:11 03/19/20 08:11 Labs: Laboratory WBC 6.8 X10^3/uL (3.6-10.0) 03/19/20 08:11 RBC 4.99 X10^6/uL (3.5-5.4) 03/19/20 08:11 Hgb 14.6 g/dL (12.0-16.0) 03/19/20 08:11 Hct 44.8 % (36.0-47.0) 03/19/20 08:11 MCV 89.8 fL (80.0-100.0) 03/19/20 08:11 MCH 29.2 pg (27.0-34.0) 03/19/20 08:11 MCHC 32.5 g/dL (33.0-35.0) L 03/19/20 08:11 RDW 13.1 % (11.6-16.5) 03/19/20 08:11 Plt Count 229 X10^3/uL (150.0-450.0) 03/19/20 08:11 MPV 8.9 fL (7.4-11.0) 03/19/20 08:11 Neut % (Auto) 85.9 % (42.0-75.0) H 03/19/20 08:11 Lymph % (Auto) 6.6 % (21.0-51.0) L 03/19/20 08:11 [place] % (Auto) 7.2 % (0.0-13.0) 03/19/20 08:11 Eos % (Auto) 0.0 % (0.9-2.9) L 03/19/20 08:11 Baso % (Auto) 0.3 % (0.2-1.0) 03/19/20 08:11 Neut # (Auto) 5.8 x10^3/uL (2.2-4.8) H 03/19/20 08:11 Lymph # (Auto) 0.4 X10^3/uL (1.3-2.9) L 03/19/20 08:11 [place] # (Auto) 0.5 x10^3/uL (0.3-0.8) 03/19/20 08:11 Eos # (Auto) 0.0 x10^3/uL (0.0-0.2) 03/19/20 08:11 Baso # (Auto) 0.0 X10^3/uL (0.0-0.1) 03/19/20 08:11 Absolute Nucleated RBC 0.3 /100WBC 03/19/20 08:11 PT 14.4 SECONDS (11.8-14.3) 03/18/20 05:00 INR Target Range - 03/18/20 05:00 INR 1.15 (0.8-1.3) 03/18/20 05:00 APTT 43.6 SECONDS (22.9-36.5) H 03/19/20 08:09 PTT Comment - 03/19/20 08:09 D-Dimer 3.08 ug/ml (0.0-0.57) H* 03/19/20 08:09 Sample Site Rr 03/19/20 04:40 ABG pH 7.370 (7.35-7.45) 03/19/20 04:40 ABG pCO2 60.0 mmHg (35.0-45.0) H* 03/19/20 04:40 ABG pO2 58.0 mmHg (80.0-100.0) L 03/19/20 04:40 ABG HCO3 34.7 mmol/L (22-26) H* 03/19/20 04:40 ABG O2 Saturation 89.0 % (90-100) L 03/19/20 04:40 ABG Base Excess 7.6 mmol/L (-2.0-2.0) H 03/19/20 04:40 Dylon Test Pos 03/19/20 04:40 A-a Gradient 152.0 mmHg 03/19/20 04:40 FiO2 40.0 03/19/20 04:40 Blood Gas Comments Eladio well, kh 03/19/20 04:40 Sodium 141 mmol/L (136-145) 03/19/20 08:11 Corrected Sodium 145 mmol/L (136-145) 03/19/20 08:11 Potassium 4.2 mmol/L (3.5-5.1) 03/19/20 08:11 Chloride 104 mmol/L (98-107) 03/19/20 08:11 Carbon Dioxide 29.7 mmol/L (21-32) 03/19/20 08:11 BUN 23 mg/dL (7-18) H 03/19/20 08:11 Creatinine 1.03 mg/dL (0.55-1.02) H 03/19/20 08:11 Est GFR (MDRD) Af Amer > 60 (>60) 03/19/20 08:11 Est GFR (MDRD) Non-Af 55 (>60) L 03/19/20 08:11 Glucose 261 mg/dL (65-99) H 03/19/20 08:11 POC Glucose (mg/dL) 275 mg/dL (65-99) H 03/19/20 11:55 Calcium 8.5 mg/dL (8.5-10.1) 03/19/20 08:11 Corrected Calcium 9.9 mg/dL (8.5-10.1) 03/19/20 08:11 Ferritin 970 ng/mL (8-252) H 03/19/20 08:11 Total Bilirubin 0.50 mg/dL (0.2-1.0) 03/19/20 08:11 AST 19 Units/L (15-37) 03/19/20 08:11 ALT 17 Units/L (12-78) 03/19/20 08:11 Alkaline Phosphatase 60 Units/L (46-116) 03/19/20 08:11 C-Reactive Protein 44.00 mg/L (0-3.0) H 03/19/20 08:11 B-Natriuretic Peptide 21.0 pg/mL (0-79) 03/19/20 08:11 Total Protein 6.4 g/dL (6.4-8.2) 03/19/20 08:11 Albumin 2.3 g/dL (3.4-5.0) L 03/19/20 08:11 Globulin 4.1 g/dL (2.5-4.5) 03/19/20 08:11 Albumin/Globulin Ratio 0.6 Ratio (1.1-2.1) L 03/19/20 08:11 Specimen Type Catherized urine 03/18/20 16:00 Urine Color Yellow (YELLOW) 03/18/20 16:00 Urine Appearance Clear (CLEAR) 03/18/20 16:00 Urine pH 6.0 (5.0 - 8.0) 03/18/20 16:00 Ur Specific [place] 1.025 (1.000-1.030) 03/18/20 16:00 Urine Protein 1+ (NEGATIVE) 03/18/20 16:00 Urine Glucose (UA) Negative (NEGATIVE) 03/18/20 16:00 Urine Ketones Negative (NEGATIVE) 03/18/20 16:00 Urine Occult Blood Negative (NEGATIVE) 03/18/20 16:00 Urine Nitrite Negative (NEGATIVE) 03/18/20 16:00 Urine Bilirubin Negative (NEGATIVE) 03/18/20 16:00 Urine Urobilinogen Normal (NORMAL) 03/18/20 16:00 Ur Leukocyte Esterase Negative (NEGATIVE) 03/18/20 16:00 Urine RBC None seen /HPF (0-3) 03/18/20 16:00 Urine WBC None seen /HPF (0-5) 03/18/20 16:00 Ur Squamous Epith Cells Negative /HPF (NEGATIVE) 03/18/20 16:00 Urine Bacteria Negative /HPF (NEGATIVE) 03/18/20 16:00 Coarse Granular Casts Rare /HPF (NEGATIVE) 03/18/20 16:00 Ur Culture Indicated? No/not indicated 03/18/20 16:00 Blood Type A POSITIVE 03/17/20 11:00 - Plan (1) Pneumonia due to COVID-19 virus Status: Acute Plan: NS AT 75ML/HR, REMDESIVIR 100MG IV DAILY, ACTEMRA 400MG IV X 1 DOSE, LEVAQUIN 750MG IV Q48, PULMICORT NEB TX BID, ALBUTEROL NEB TX QID, MUCOMYST IN NEBS QID, XANAX 0.5MG PO DAILY PRN, ATORVASTATIN 80MG PO HS, TESSALON PERLES TID, TUSSIONEX 5ML PO Q12H PRN, DIFLUCAN 100MG PO DAILY, IVERMECTIN- PHARMACY TO DOSE, MAGIC MOUTHWASH QID, MILK OF MAG 30ML PO BID, COLACE 100MG PO HS, MELATONIN 10MG PO HS, SOLU-MEDROL 125MG IV Q6H, SINGULAIR 10MG PO HS, PROTONIX 40MG IV BID, THIAMINE 200MG IV BID, ZINC SULFATE 220MG PO DAILY, ZYRTEC 10MG PO HS, VITAMIN D3 DAILY, PEPCID 20MG IV DAILY, HEPARIN DRIP, ATIVAN 1MG IV Q4H MAGDALENA, GEODON 20MG IV BID, AND HUMULIN R SLIDING SCALE (2) Hypoxia Status: Acute
[2020-03-19] MEDS: GEODON INJ IM SCH ×2 (12:22→21:36)
[2020-03-19] MEDS: REMDESIVIR 100 MG in NS 250 ML IV 250 ML IV SCH (21:30)
[2020-03-19] MEDS: SINGULAIR TAB 10 MG PO SCH (21:32)
[2020-03-19] MEDS: MELATONIN PO SCH (21:34)
[2020-03-19] MEDS: LIPITOR TAB 80 MG PO SCH (21:35)
[2020-03-19] MEDS: COLACE CAP 100 MG PO SCH (21:35)
[2020-03-20] MEDS: ATIVAN INJ 2 MG VIAL IVP SCH ×6 (00:26→20:11)
[2020-03-20] MEDS: SOLU-Medrol 125 MG VIAL IVP SCH ×4 (03:20→21:43)
[2020-03-20] MEDS: ASCORBIC ACID INJ MULTI-DOSE VIAL 1,500 MG in NS 50 ML IV 50 ML IV SCH ×4 (03:20→21:40)
[2020-03-20] MEDS: TESSALON PERLES PO SCH ×3 (06:20→22:06)
[2020-03-20] MEDS: HumuLIN R SUBCUT PRN ×3 (06:21→16:57)
--- NOTE | 2020-03-20 06:36 | RAD ---
HISTORYSOBSTUDYCHEST, 1 [id number] view of the chestFINDINGSRight IJ central line in good position. Cardiac and mediastinal contours are within normal limits. No significant change in bilateral mid and lower lung predominantly interstitial opacities. Blunted left costophrenic sulcus. No discernible pneumothorax.IMPRESSIONNo significant change. Suspect a small left pleural effusion.Electronically signed by: Alf Smith (Mar 20, 2020 06:34:46)
[2020-03-20 07:47] LABS: BASOPHILS % (AUTO) 0.1 % (0.2-1.0); EOSINOPHILS % (AUTO) 0.1 % (0.9-2.9); HEMATOCRIT 48.5 % (36.0-47.0); HEMOGLOBIN 15.9 g/dL (12.0-16.0); LYMPHOCYTES # (AUTO) 0.5 X10^3/uL (1.3-2.9); LYMPHOCYTES % (AUTO) 5.9 % (21.0-51.0); MEAN CORPUSCULAR HEMOGLOBIN 29.5 pg (27.0-34.0); MEAN CORPUSCULAR HGB CONC 32.7 g/dL (33.0-35.0); MEAN CORPUSCULAR VOLUME 90.2 fL (80.0-100.0); MEAN PLATELET VOLUME 8.6 fL (7.4-11.0); MONOCYTES # (AUTO) 0.7 x10^3/uL (0.3-0.8); MONOCYTES % (AUTO) 7.6 % (0.0-13.0); NEUTROPHILS # (AUTO) 7.7 x10^3/uL (2.2-4.8); NEUTROPHILS % (AUTO) 86.3 % (42.0-75.0); PLATELET COUNT 242 X10^3/uL (150.0-450.0); RED BLOOD COUNT 5.38 X10^6/uL (3.5-5.4); RED CELL DISTRIBUTION WIDTH 13.2 % (11.6-16.5); WHITE BLOOD COUNT 8.9 X10^3/uL (3.6-10.0)
[2020-03-20 07:52] LABS: ALANINE AMINOTRANSFERASE 15 Units/L (12-78); ALBUMIN 2.2 g/dL (3.4-5.0); ALKALINE PHOSPHATASE 59 Units/L (46-116); ASPARTATE AMINO TRANSFERASE 22 Units/L (15-37); BLOOD UREA NITROGEN 20 mg/dL (7-18); CALCIUM 8.7 mg/dL (8.5-10.1); CARBON DIOXIDE 32.2 mmol/L (21-32); CHLORIDE 106 mmol/L (98-107); COR CA(FOR HYPOALB) 10.1 mg/dL (8.5-10.1); COR NA(FOR HYPERGLY) 147 mmol/L (136-145); CREATININE 1.02 mg/dL (0.55-1.02); SODIUM 142 mmol/L (136-145); TOTAL PROTEIN 6.5 g/dL (6.4-8.2); eGFR NON BLACK RACES 56 (>60)
[2020-03-20] MEDS: DIFLUCAN PO SCH (08:47)
[2020-03-20] MEDS: GEODON INJ IM SCH ×2 (08:47→21:42)
[2020-03-20] MEDS: MILK OF MAGNESIA PO SCH ×2 (08:48→23:07)
[2020-03-20] MEDS: IVERMECTIN PO SCH (08:48)
[2020-03-20] MEDS: PROTONIX INJ 40 MG VIAL IVP SCH ×2 (08:49→21:41)
[2020-03-20] MEDS: PEPCID 20 MG IV PREMIX* 10 MG/25 ML BAG IV SCH (08:49)
[2020-03-20] MEDS: ZyrTEC TAB 10 MG PO SCH (08:50)
[2020-03-20] MEDS: VITAMIN D3 125 mcg (5,000 UNITS) PO SCH (08:50)
[2020-03-20] MEDS: ZINC SULFATE PO SCH (08:50)
[2020-03-20] MEDS: HEPARIN SODIUM IN D5W 25,000 UNITS/500 ML BAG IV PRN ×3 (08:52→16:10)
[2020-03-20] MEDS ORDERED: PHARMACY CONSULT - TPN XX SCH (11:00)
[2020-03-20] MEDS ORDERED: NS 1/2 1000 ML IV 1,000 ML IV ONE (11:51)
[2020-03-20] MEDS: ACCUNEB 1.25 MG NEBULE NEB SCH ×4 (11:57→20:35)
[2020-03-20] MEDS: PULMICORT NEB TX 0.5 MG NEB SCH ×2 (11:58→20:35)
[2020-03-20] MEDS: MUCOMYST (RESPIRATORY USE ONLY) NEB SCH ×2 (11:58→20:35)
[2020-03-20] MEDS: NS 1/2 1000 ML IV 1,000 ML IV SCH (12:17)
--- NOTE | 2020-03-20 12:32 | PCM.PROG ---
Progress Note - Progress Note for Day of Date of Exam: 03/20/20 - Subjective Subjective: IS BEING TREATED FOR PNEUMONIA DUE TO COVID-19 AND HYPOXIA. TODAY, SHE IS LYING IN BED WITH EYES CLOSED ON MORNING ROUNDS. SHE OPENS EYES TO VERBAL STIMULI, BUT SHE IS DOES NOT FOLLOW COMMANDS. STAFF REPORTS THAT SHE CONTINUES WITH DISORIENTATION AND AGITATION. SHE DOES HAVE A PMH OF DEMENTIA AND ALZHEIMERS. SHE CONTINUES WITH WEAKNESS AND A NON-PRODUCTIVE COUGH THIS MORNING. SHE REMAINS ON NASAL CANNULA AT 5 LITERS/MINUTE. HER SATURATIONS HAVE BEEN 90- 97% THIS MORNING AND THROUGHOUT THE NIGHT. ON EXAMINATION, HEART IS REGULAR IN RATE AND RHYTHM. BILATERAL LUNGS ARE NOTED WITH RALES THROUGHOUT. ABDOMEN IS ROUND, SOFT, AND NON-TENDER WITH NORMAL BOWEL SOUNDS NOTED IN ALL QUADRANTS. HER VITALS THIS MORNING ARE: 96.6-74-22-91%-180/75. LABS WERE OBTAINED. ABNORMAL LAB VALUES INCLUDE THE FOLLOWING: HCT 48.5, D-DIMER 2.22, CARBON DIOXIDE 32.2, CREATININE 20, GLUCOSE 297, FERRITIN 1481, CRP 26.30, ALBUMIN 2.2. BLOOD CULTURES ARE PENDING. ABG WAS OBTAINED AND REVEALED: PH 7.370, PC02 60, P02 58, HC03 34.7, 02 SAT 89, BASE EXCESS 7.6, A-A GRADIENT 152, FI02 40. A CHEST XRAY WAS OBTAINED AND REVEALED: No significant change. Suspect a small left pleural effusion. SHE IS CURRENTLY RECEIVING NS AT 75ML/HR, REMDESIVIR 100MG IV DAILY, ACTEMRA 400MG IV X 1 DOSE, LEVAQUIN 750MG IV Q48, PULMICORT NEB TX BID, ALBUTEROL NEB TX QID, MUCOMYST IN NEBS QID, XANAX 0.5MG PO DAILY PRN, ATORVASTATIN 80MG PO HS, TESSALON PERLES TID, TUSSIONEX 5ML PO Q12H PRN, DIFLUCAN 100MG PO DAILY, IVERMECTIN- PHARMACY TO DOSE, MAGIC MOUTHWASH QID, MILK OF MAG 30ML PO BID, COLACE 100MG PO HS, MELATONIN 10MG PO HS, SOLU-MEDROL 125MG IV Q6H, SINGULAIR 10MG PO HS, PROTONIX 40MG IV BID, THIAMINE 200MG IV BID, ZINC SULFATE 220MG PO DAILY, ZYRTEC 10MG PO HS, VITAMIN D3 DAILY, PEPCID 20MG IV DAILY, HEPARIN DRIP, ATIVAN 1MG IV Q4H MAGDALENA, GEODON 20MG IM BID, AND HUMULIN R SLIDING SCALE. WE WILL ADD TPN TODAY FOR NUTRITION. OTHERWISE, WE PLAN TO FOLLOW UP WITH AM LABS, CHEST XRAY, ABG, AND CONTINUE TO MONITOR. TIME SPENT ON CLINICAL ASSESSMENT, REVIEWING LABS AND IMAGING, DECISION MAKING, AND DOCUMENT ATION GREATER THAN 75 MINUTES - Past Medical Family Social History Past Med/Fam/Surg Hx: No changes since H&P Allergies: Allergies No Known Drug Allergies Allergy (Verified 03/13/20 15:38) - Review of Systems ROS: No change since H&P - Vital Signs and I&O's Vital Signs: Temperature 97.0 F Pulse Rate [Right Radial] 84 Pulse Rate 63 Respiratory Rate 20 Blood Pressure [Right Arm] 163/79 Blood Pressure 118/76 O2 Sat by Pulse Oximetry 92 Intake and Output: Intake & Output 03/18/20 03/19/20 03/20/20 03/21/20 11:59 11:59 11:59 11:59 Intake Total 980 / 980 1675 / 1675 1835.0 / 1835.0 Balance 980 / 980 1675 / 1675 1835.0 / 1835.0 - Physical Exam Oriented: Not Oriented Eyes: Normal Ear: Normal Nose: Normal Throat: Normal Respiratory: Diminished, Rales Cardiovascular: Normal : Normal Auscultation: Bowel Sounds: Normal Palpation: Normal Tenderness: Normal Skin: Normal Musculoskeletal: Normal Psychiatric: Agitation Mood Description: Anxious Affect: Anxious Speech Pattern: Unclear - Laboratory and Diagnostics Result Diagrams: 03/20/20 07:26 03/20/20 07:26 Labs: 03/18/20 11:20 Blood Blood Culture - Preliminary Laboratory WBC 8.9 X10^3/uL (3.6-10.0) 03/20/20 07:26 RBC 5.38 X10^6/uL (3.5-5.4) 03/20/20 07:26 Hgb 15.9 g/dL (12.0-16.0) 03/20/20 07:26 Hct 48.5 % (36.0-47.0) H 03/20/20 07:26 MCV 90.2 fL (80.0-100.0) 03/20/20 07:26 MCH 29.5 pg (27.0-34.0) 03/20/20 07: MCHC 32.7 g/dL (33.0-35.0) L 03/20/20 07: RDW 13.2 % (11.6-16.5) 03/20/20 07:26 Plt Count 242 X10^3/uL (150.0-450.0) 03/20/20 07: MPV 8.6 fL (7.4-11.0) 03/20/20 07: Neut % (Auto) 86.3 % (42.0-75.0) H 03/20/20 07: Lymph % (Auto) 5.9 % (21.0-51.0) L 03/20/20 07: [place] % (Auto) 7.6 % (0.0-13.0) 03/20/20 07: Eos % (Auto) 0.1 % (0.9-2.9) L 03/20/20 07: Baso % (Auto) 0.1 % (0.2-1.0) L 03/20/20 07:26 Neut # (Auto) 7.7 x10^3/uL (2.2-4.8) H 03/20/20 07:26 Lymph # (Auto) 0.5 X10^3/uL (1.3-2.9) L 03/20/20 07:26 [place] # (Auto) 0.7 x10^3/uL (0.3-0.8) 03/20/20 07: Eos # (Auto) 0.0 x10^3/uL (0.0-0.2) 03/20/20 07:26 Baso # (Auto) 0.0 X10^3/uL (0.0-0.1) 03/20/20 07: Absolute Nucleated RBC 0.1 /100WBC 03/20/20 07:26 PT 14.4 SECONDS (11.8-14.3) 03/18/20 05:00 INR Target Range - 03/18/20 05:00 INR 1.15 (0.8-1.3) 03/18/20 05:00 APTT 162.6 SECONDS (22.9-36.5) H* 03/20/20 07:26 PTT Comment - 03/20/20 07:26 D-Dimer 2.22 ug/ml (0.0-0.57) H* 03/20/20 07:26 Sample Site Rr 03/19/20 04:40 ABG pH 7.370 (7.35-7.45) 03/19/20 04:40 ABG pCO2 60.0 mmHg (35.0-45.0) H* 03/19/20 04:40 ABG pO2 58.0 mmHg (80.0-100.0) L 03/19/20 04:40 ABG HCO3 34.7 mmol/L (22-26) H* 03/19/20 04:40 ABG O2 Saturation 89.0 % (90-100) L 03/19/20 04:40 ABG Base Excess 7.6 mmol/L (-2.0-2.0) H 03/19/20 04:40 Dylon Test Pos 03/19/20 04:40 A-a Gradient 152.0 mmHg 03/19/20 04:40 FiO2 40.0 03/19/20 04:40 Blood Gas Comments Eladio well, kh 03/19/20 04:40 Sodium 142 mmol/L (136-145) 03/20/20 07:26 Corrected Sodium 147 mmol/L (136-145) H 03/20/20 07:26 Potassium 4.6 mmol/L (3.5-5.1) 03/20/20 07:26 Chloride 106 mmol/L (98-107) 03/20/20 07:26 Carbon Dioxide 32.2 mmol/L (21-32) H 03/20/20 07:26 BUN 20 mg/dL (7-18) H 03/20/20 07:26 Creatinine 1.02 mg/dL (0.55-1.02) 03/20/20 07:26 Est GFR (MDRD) Af Amer > 60 (>60) 03/20/20 07:26 Est GFR (MDRD) Non-Af 56 (>60) L 03/20/20 07:26 Glucose 297 mg/dL (65-99) H 03/20/20 07:26 POC Glucose (mg/dL) 267 mg/dL (65-99) H 03/20/20 11:53 Calcium 8.7 mg/dL (8.5-10.1) 03/20/20 07:26 Corrected Calcium 10.1 mg/dL (8.5-10.1) 03/20/20 07:26 Ferritin 1481 ng/mL (8-252) H 03/20/20 07:26 Total Bilirubin 0.50 mg/dL (0.2-1.0) 03/20/20 07:26 AST 22 Units/L (15-37) 03/20/20 07:26 ALT 15 Units/L (12-78) 03/20/20 07:26 Alkaline Phosphatase 59 Units/L (46-116) 03/20/20 07:26 C-Reactive Protein 26.30 mg/L (0-3.0) H 03/20/20 07:26 B-Natriuretic Peptide 15.3 pg/mL (0-79) 03/20/20 07:26 Total Protein 6.5 g/dL (6.4-8.2) 03/20/20 07:26 Albumin 2.2 g/dL (3.4-5.0) L 03/20/20 07:26 Globulin 4.3 g/dL (2.5-4.5) 03/20/20 07:26 Albumin/Globulin Ratio 0.5 Ratio (1.1-2.1) L 03/20/20 07:26 Prealbumin 16.6 mg/dL (18-35.7) L 03/20/20 07:26 Specimen Type Catherized urine 03/18/20 16:00 Urine Color Yellow (YELLOW) 03/18/20 16:00 Urine Appearance Clear (CLEAR) 03/18/20 16:00 Urine pH 6.0 (5.0 - 8.0) 03/18/20 16:00 Ur Specific [place] 1.025 (1.000-1.030) 03/18/20 16:00 Urine Protein 1+ (NEGATIVE) 03/18/20 16:00 Urine Glucose (UA) Negative (NEGATIVE) 03/18/20 16:00 Urine Ketones Negative (NEGATIVE) 03/18/20 16:00 Urine Occult Blood Negative (NEGATIVE) 03/18/20 16:00 Urine Nitrite Negative (NEGATIVE) 03/18/20 16:00 Urine Bilirubin Negative (NEGATIVE) 03/18/20 16:00 Urine Urobilinogen Normal (NORMAL) 03/18/20 16:00 Ur Leukocyte Esterase Negative (NEGATIVE) 03/18/20 16:00 Urine RBC None seen /HPF (0-3) 03/18/20 16:00 Urine WBC None seen /HPF (0-5) 03/18/20 16:00 Ur Squamous Epith Cells Negative /HPF (NEGATIVE) 03/18/20 16:00 Urine Bacteria Negative /HPF (NEGATIVE) 03/18/20 16:00 Coarse Granular Casts Rare /HPF (NEGATIVE) 03/18/20 16:00 Ur Culture Indicated? No/not indicated 03/18/20 16:00 Blood Type A POSITIVE 03/17/20 11:00 - Plan (1) Pneumonia due to COVID-19 virus Status: Acute Plan: NS AT 75ML/HR, TPN, REMDESIVIR 100MG IV DAILY, ACTEMRA 400MG IV X 1 DOSE, LEVAQUIN 750MG IV Q48, PULMICORT NEB TX BID, ALBUTEROL NEB TX QID, MUCOMYST IN NEBS QID, XANAX 0.5MG PO DAILY PRN, ATORVASTATIN 80MG PO HS, TESSALON PERLES TID, TUSSIONEX 5ML PO Q12H PRN, DIFLUCAN 100MG PO DAILY, IVERMECTIN- PHARMACY TO DOSE, MAGIC MOUTHWASH QID, MILK OF MAG 30ML PO BID, COLACE 100MG PO HS, MELATONIN 10MG PO HS, SOLU-MEDROL 125MG IV Q6H, SINGULAIR 10MG PO HS, PROTONIX 40MG IV BID, THIAMINE 200MG IV BID, ZINC SULFATE 220MG PO DAILY, ZYRTEC 10MG PO HS, VITAMIN D3 DAILY, PEPCID 20MG IV DAILY, HEPARIN DRIP, ATIVAN 1MG IV Q4H MAGDALENA, GEODON 20MG IV BID, AND HUMULIN R SLIDING SCALE (2) Hypoxia Status: Acute
[2020-03-20] MEDS: MVI IV SCH ×4 (15:28)
[2020-03-20] MEDS: [UNRECOGNIZED DRUG - OTHER] IV SCH ×4 (15:28)
[2020-03-20] MEDS: CLINIMIX IV SCH ×4 (15:28)
[2020-03-20] MEDS: TRACE ELEMENTS IV SCH ×4 (15:28)
[2020-03-20] MEDS ORDERED: DEXTROSE 10% 1,000 ML IV PRN (16:46)
[2020-03-20] MEDS ORDERED: HumuLIN R ONE (17:06)
[2020-03-20] MEDS ORDERED: CATAPRES-TTS-2 TD SCH (18:00)
[2020-03-20 18:09] LABS: MAGNESIUM 2.1 mg/dL (1.7-2.9); PHOSPHORUS 2.2 mg/dL (2.6-4.7)
[2020-03-20] MEDS: SNACK - Diabetic Appropriate PO SCH (20:00)
[2020-03-20] MEDS: LIPOSYN III 20% 100ML 100 ML IV SCH (21:40)
[2020-03-20] MEDS: COLACE CAP 100 MG PO SCH (21:41)
[2020-03-20] MEDS: REMDESIVIR 100 MG in NS 250 ML IV 250 ML IV SCH (21:42)
[2020-03-20] MEDS: LIPITOR TAB 80 MG PO SCH (21:43)
[2020-03-20] MEDS: SINGULAIR TAB 10 MG PO SCH (21:44)
[2020-03-20] MEDS: MELATONIN PO SCH (21:45)
[2020-03-21] MEDS: ATIVAN INJ 2 MG VIAL IVP SCH ×6 (00:42→20:00)
[2020-03-21 01:17] LABS: ABG BASE EXCESS 7.7 mmol/L (-2.0-2.0); ABG HCO3 34.1 mmol/L (22-26)
[2020-03-21 01:18] LABS: ABG ALLEN TEST POS
[2020-03-21] MEDS: NS 1/2 1000 ML IV 1,000 ML IV SCH ×2 (02:00→14:13)
[2020-03-21] MEDS: ASCORBIC ACID INJ MULTI-DOSE VIAL 1,500 MG in NS 50 ML IV 50 ML IV SCH ×2 (02:59→09:49)
[2020-03-21] MEDS: SOLU-Medrol 125 MG VIAL IVP SCH ×5 (03:00→21:00)
[2020-03-21] MEDS ORDERED: NS 1/2 1000 ML IV 1,000 ML IV ONE (03:09)
[2020-03-21] MEDS: TESSALON PERLES PO SCH ×3 (05:20→21:01)
[2020-03-21] MEDS: HumuLIN R SUBCUT PRN ×4 (05:37→20:41)
[2020-03-21 06:00] LABS: ABG BASE EXCESS 10.3 mmol/L (-2.0-2.0)
[2020-03-21 06:01] LABS: ABG ALLEN TEST POS; ABG HCO3 36.5 mmol/L (22-26)
[2020-03-21] MEDS: [UNRECOGNIZED DRUG - OTHER] IV SCH ×14 (07:14→15:37)
[2020-03-21] MEDS: CLINIMIX IV SCH ×14 (07:14→15:37)
[2020-03-21] MEDS: TRACE ELEMENTS IV SCH ×14 (07:14→15:37)
[2020-03-21] MEDS: MVI IV SCH ×14 (07:14→15:37)
[2020-03-21 07:36] LABS: BASOPHILS % (AUTO) 0.2 % (0.2-1.0); EOSINOPHILS # (AUTO) 0.2 x10^3/uL (0.0-0.2); EOSINOPHILS % (AUTO) 1.7 % (0.9-2.9); HEMATOCRIT 50.6 % (36.0-47.0); HEMOGLOBIN 16.2 g/dL (12.0-16.0); LYMPHOCYTES # (AUTO) 0.8 X10^3/uL (1.3-2.9); LYMPHOCYTES % (AUTO) 6.4 % (21.0-51.0); MEAN CORPUSCULAR HEMOGLOBIN 28.8 pg (27.0-34.0); MEAN CORPUSCULAR HGB CONC 32.1 g/dL (33.0-35.0); MEAN CORPUSCULAR VOLUME 89.9 fL (80.0-100.0); MEAN PLATELET VOLUME 8.9 fL (7.4-11.0); MONOCYTES # (AUTO) 0.9 x10^3/uL (0.3-0.8); MONOCYTES % (AUTO) 7.3 % (0.0-13.0); NEUTROPHILS # (AUTO) 10.8 x10^3/uL (2.2-4.8); NEUTROPHILS % (AUTO) 84.4 % (42.0-75.0); PLATELET COUNT 273 X10^3/uL (150.0-450.0); RED BLOOD COUNT 5.62 X10^6/uL (3.5-5.4); RED CELL DISTRIBUTION WIDTH 13.1 % (11.6-16.5); WHITE BLOOD COUNT 12.7 X10^3/uL (3.6-10.0)
[2020-03-21 07:39] LABS: ALANINE AMINOTRANSFERASE 16 Units/L (12-78); ALBUMIN 2.4 g/dL (3.4-5.0); ALKALINE PHOSPHATASE 65 Units/L (46-116); ASPARTATE AMINO TRANSFERASE 22 Units/L (15-37); BLOOD UREA NITROGEN 17 mg/dL (7-18); CALCIUM 8.6 mg/dL (8.5-10.1); CARBON DIOXIDE 34.2 mmol/L (21-32); CHLORIDE 102 mmol/L (98-107); COR CA(FOR HYPOALB) 9.9 mg/dL (8.5-10.1); COR NA(FOR HYPERGLY) 145 mmol/L (136-145); CREATININE 0.99 mg/dL (0.55-1.02); MAGNESIUM 2.1 mg/dL (1.7-2.9); PHOSPHORUS 1.9 mg/dL (2.6-4.7); SODIUM 141 mmol/L (136-145); TOTAL PROTEIN 6.5 g/dL (6.4-8.2); TRIGLYCERIDES 77 mg/dL (0-150); eGFR NON BLACK RACES 58 (>60)
--- NOTE | 2020-03-21 07:53 | RAD ---
HISTORYShortness of breathSTUDYChest AP [id number] is a right IJ line in good position. The heart is mildly en larged. No congestive heart failure is noted. Interstitial infiltrates are again demonstrated in the lower half of the right lung. The left lung is now clear. No pleural effusions are identified. Bony t horax is unremarkable.IMPRESSIONNo change right lung interstitial infiltratesLeft lung now clearCardi omegaly without congestive heart failureElectronically signed by: ARSEN MCPHERSON (Mar 21, 2020 07:52:1 5)
[2020-03-21 08:00] LABS: BAND NEUTROPHILS % 6 % (0-10); PLATELET MORPHOLOGY COMMENT NORMAL (NORMAL)
[2020-03-21 08:16] LABS: PREALBUMIN 21.6 mg/dL (18-35.7)
[2020-03-21] MEDS ORDERED: GEODON INJ IM ONE ×2 (08:40→23:07)
[2020-03-21] MEDS: PULMICORT NEB TX 0.5 MG NEB SCH ×2 (09:10→21:20)
[2020-03-21] MEDS: ACCUNEB 1.25 MG NEBULE NEB SCH ×4 (09:10→21:20)
[2020-03-21] MEDS: MUCOMYST (RESPIRATORY USE ONLY) NEB SCH ×2 (09:10→21:20)
[2020-03-21] MEDS: DIFLUCAN PO SCH (09:49)
[2020-03-21] MEDS: MILK OF MAGNESIA PO SCH ×3 (09:50→21:00)
[2020-03-21] MEDS: GEODON INJ IM SCH ×2 (09:50→23:24)
[2020-03-21] MEDS: PEPCID 20 MG IV PREMIX* 10 MG/25 ML BAG IV SCH (09:50)
[2020-03-21] MEDS: VITAMIN D3 125 mcg (5,000 UNITS) PO SCH (09:51)
[2020-03-21] MEDS: ZyrTEC TAB 10 MG PO SCH (09:51)
[2020-03-21] MEDS: ZINC SULFATE PO SCH (09:51)
[2020-03-21] MEDS: PROTONIX INJ 40 MG VIAL IVP SCH ×2 (09:51→21:00)
[2020-03-21] MEDS: LEVAQUIN PREMIX IV 750 MG 750 MG/150 ML BAG IV SCH (09:52)
--- NOTE | 2020-03-21 11:17 | PCM.PROG ---
Progress Note - Progress Note for Day of Date of Exam: 03/21/20 - Subjective Subjective: IS BEING TREATED FOR PNEUMONIA DUE TO COVID-19 AND HYPOXIA. TODAY, SHE IS LYING IN BED WITH EYES CLOSED ON MORNING ROUNDS. SHE OPENS EYES TO VERBAL STIMULI, BUT CONTINUES TO BE DISORIENTED. STAFF ATTEMPTS TO REPOSITION BLOOD PRESSURE CUFF, BUT PATIENT BECOMES AGITATED. SHE DOES HAVE A PMH OF DEMENTIA AND ALZHEIMERS. SHE CONTINUES WITH WEAKNESS AND A NON-PRODUCTIVE COUGH THIS MORNING. SHE REMAINS ON NASAL CANNULA AT 5 LITERS/MINUTE. HER SATURATIONS HAVE BEEN 90-98% THIS MORNING AND THROUGHOUT THE NIGHT. ON EXAMINATION, HEART IS REGULAR IN RATE AND RHYTHM. BILATERAL LUNGS ARE NOTED WITH RALES THROUGHOUT. ABDOMEN IS ROUND, SOFT, AND NON-TENDER WITH NORMAL BOWEL SOUNDS NOTED IN ALL QUADRANTS. HER VITALS THIS MORNING ARE: 96.7-91-18-91%-159/75. LABS WERE OBTAINED. ABNORMAL LAB VALUES INCLUDE THE FOLLOWING: WBC 12.7, RBC 5.62, HGB 16.2, HCT 50.6, D-DIMER 2.33, CARBON DIOXIDE 34.2, GLUCOSE 247, PHOSPHORUS 1.9, FERRITIN 1620, CRP 17.80, ALBUMIN 2.4. BLOOD CULTURES ARE PENDING. ABG WAS OBTAINED AND REVEALED: PH 7.430, PC02 55, P02 63, HC03 36.5, 02 SAT 92, BASE EXCESS 10.3, A-A GRADIENT 125, FI02 36. A CHEST XRAY WAS OBTAINED AND REVEALED: No change right lung interstitial infiltrates. Left lung now clear. Cardiomegaly without congestive heart failure. SHE IS CURRENTLY RECEIVING NS AT 75ML/HR, TPN, REMDESIVIR 100MG IV DAILY, ACTEMRA 400MG IV X 1 DOSE, LEVAQUIN 750MG IV Q48, PULMICORT NEB TX BID, ALBUTEROL NEB TX QID, MUCOMYST IN NEBS QID, XANAX 0.5MG PO DAILY PRN, ATORVASTATIN 80MG PO HS, TESSALON PERLES TID, TUSSIONEX 5ML PO Q12H PRN, DIFLUCAN 100MG PO DAILY, IVERMECTIN- PHARMACY TO DOSE, MAGIC MOUTHWASH QID, MILK OF MAG 30ML PO BID, COLACE 100MG PO HS, MELATONIN 10MG PO HS, SOLU-MEDROL 125MG IV Q6H, SINGULAIR 10MG PO HS, PROTONIX 40MG IV BID, THIAMINE 200MG IV BID, ZINC SULFATE 220MG PO DAILY, ZYRTEC 10MG PO HS, VITAMIN D3 DAILY, PEPCID 20MG IV DAILY, HEPARIN DRIP, ATIVAN 0.5MG IV Q4H MAGDALENA, GEODON 10MG IM BID, AND HUMULIN R SLIDING SCALE. TODAY, WE WILL DECREASE IV FLUIDS TO KVO, ADD LASIX 20MG IV BID X 2 DOSES, LOPRESSOR 5MG IV Q6H, AND CLONIDINE 0.3MG TD PATCH. OTHERWISE, WE PLAN TO FOLLOW UP WITH AM LABS, CHEST XRAY, ABG, AND CONTINUE TO MONITOR. TIME SPENT ON CLINICAL ASSESSMENT, REVIEWING LABS AND IMAGING, DECISION MAKING, AND DOCUMENTATION GREATER THAN 75 MINUTES - Past Medical Family Social History Past Med/Fam/Surg Hx: No changes since H&P Allergies: Allergies No Known Drug Allergies Allergy (Verified 03/13/20 15:38) - Review of Systems ROS: No change since H&P - Vital Signs and I&O's Vital Signs: Temperature 96.7 F Pulse Rate [Right Radial] 91 Pulse Rate 81 Respiratory Rate 18 Blood Pressure [Right Arm] 159/75 Blood Pressure 118/76 O2 Sat by Pulse Oximetry 91 Intake and Output: Intake & Output 03/18/20 03/19/20 03/20/20 03/21/20 11:59 11:59 11:59 11:59 Intake Total 980 / 980 1675 / 1675 1835.0 / 1835.0 1440 / 1440 Balance 980 / 980 1675 / 1675 1835.0 / 1835.0 1440 / 1440 - Physical Exam Oriented: Not Oriented Eyes: Normal Ear: Normal Nose: Normal Throat: Normal Respiratory: Diminished, Rales Cardiovascular: Normal : Normal Auscultation: Bowel Sounds: Normal Tenderness: Normal Skin: Normal Musculoskeletal: Normal Psychiatric: Agitation Mood Description: Anxious Affect: Anxious Speech Pattern: Unclear - Laboratory and Diagnostics Result Diagrams: 03/21/20 07:10 03/21/20 07:10 Labs: 03/18/20 11:20 Blood Blood Culture - Final 03/18/20 11:55 Blood Blood Culture - Preliminary Laboratory WBC 12.7 X10^3/uL (3.6-10.0) H 03/21/20 07:10 RBC 5.62 X10^6/uL (3.5-5.4) H 03/21/20 07:10 Hgb 16.2 g/dL (12.0-16.0) H 03/21/20 07:10 Hct 50.6 % (36.0-47.0) H 03/21/20 07:10 MCV 89.9 fL (80.0-100.0) 03/21/20 07:10 MCH 28.8 pg (27.0-34.0) 03/21/20 07:10 MCHC 32.1 g/dL (33.0-35.0) L 03/21/20 07:10 RDW 13.1 % (11.6-16.5) 03/21/20 07:10 Plt Count 273 X10^3/uL (150.0-450.0) 03/21/20 07:10 Plt Count Comment Adequate (ADEQUATE) 03/21/20 07:10 MPV 8.9 fL (7.4-11.0) 03/21/20 07:10 Neut % (Auto) 84.4 % (42.0-75.0) H 03/21/20 07:10 Lymph % (Auto) 6.4 % (21.0-51.0) L 03/21/20 07:10 [place] % (Auto) 7.3 % (0.0-13.0) 03/21/20 07:10 Eos % (Auto) 1.7 % (0.9-2.9) 03/21/20 07:10 Baso % (Auto) 0.2 % (0.2-1.0) 03/21/20 07:10 Neut # (Auto) 10.8 x10^3/uL (2.2-4.8) H 03/21/20 07:10 Lymph # (Auto) 0.8 X10^3/uL (1.3-2.9) L 03/21/20 07:10 [place] # (Auto) 0.9 x10^3/uL (0.3-0.8) H 03/21/20 07:10 Eos # (Auto) 0.2 x10^3/uL (0.0-0.2) 03/21/20 07:10 Baso # (Auto) 0.0 X10^3/uL (0.0-0.1) 03/21/20 07:10 Absolute Nucleated RBC 0.5 /100WBC 03/21/20 07:10 Total Counted 100 03/21/20 07:10 Neutrophils % (Manual) 78 % (39-76) H 03/21/20 07:10 Band Neutrophils % 6 % (0-10) 03/21/20 07:10 Lymphocytes % (Manual) 5 % (13-43) L 03/21/20 07:10 Monocytes % (Manual) 11 % (4-9) H 03/21/20 07:10 Plt Morphology Comment Normal (NORMAL) 03/21/20 07:10 RBC Morphology Normal (NORMAL) 03/21/20 07:10 PT 14.4 SECONDS (11.8-14.3) 03/18/20 05:00 INR Target Range - 03/18/20 05:00 INR 1.15 (0.8-1.3) 03/18/20 05:00 APTT 84.4 SECONDS (22.9-36.5) H 03/21/20 07:10 PTT Comment - 03/21/20 07:10 D-Dimer 2.33 ug/ml (0.0-0.57) H* 03/21/20 07:10 Sample Site Rr 03/21/20 05:00 ABG pH 7.430 (7.35-7.45) 03/21/20 05:00 ABG pCO2 55.0 mmHg (35.0-45.0) H* 03/21/20 05:00 ABG pO2 63.0 mmHg (80.0-100.0) L 03/21/20 05:00 ABG HCO3 36.5 mmol/L (22-26) H* 03/21/20 05:00 ABG O2 Saturation 92.0 % (90-100) 03/21/20 05:00 ABG Base Excess 10.3 mmol/L (-2.0-2.0) H 03/21/20 05:00 Dylon Test Pos 03/21/20 05:00 A-a Gradient 125.0 mmHg 03/21/20 05:00 FiO2 36.0 03/21/20 05:00 Blood Gas Comments Eladio well sw 03/21/20 05:00 Sodium 141 mmol/L (136-145) 03/21/20 07:10 Corrected Sodium 145 mmol/L (136-145) 03/21/20 07:10 Potassium 3.9 mmol/L (3.5-5.1) 03/21/20 07:10 Chloride 102 mmol/L (98-107) 03/21/20 07:10 Carbon Dioxide 34.2 mmol/L (21-32) H 03/21/20 07:10 BUN 17 mg/dL (7-18) 03/21/20 07:10 Creatinine 0.99 mg/dL (0.55-1.02) 03/21/20 07:10 Est GFR (MDRD) Af Amer > 60 (>60) 03/21/20 07:10 Est GFR (MDRD) Non-Af 58 (>60) L 03/21/20 07:10 Glucose 247 mg/dL (65-99) H 03/21/20 07:10 POC Glucose (mg/dL) 194 mg/dL (65-99) H 03/21/20 10:03 Calcium 8.6 mg/dL (8.5-10.1) 03/21/20 07:10 Corrected Calcium 9.9 mg/dL (8.5-10.1) 03/21/20 07:10 Phosphorus 1.9 mg/dL (2.6-4.7) L 03/21/20 07:10 Magnesium 2.1 mg/dL (1.7-2.9) 03/21/20 07:10 Ferritin 1620 ng/mL (8-252) H 03/21/20 07:10 Total Bilirubin 0.50 mg/dL (0.2-1.0) 03/21/20 07:10 AST 22 Units/L (15-37) 03/21/20 07:10 ALT 16 Units/L (12-78) 03/21/20 07:10 Alkaline Phosphatase 65 Units/L (46-116) 03/21/20 07:10 C-Reactive Protein 17.80 mg/L (0-3.0) H 03/21/20 07:10 B-Natriuretic Peptide 27.0 pg/mL (0-79) 03/21/20 07:10 Total Protein 6.5 g/dL (6.4-8.2) 03/21/20 07:10 Albumin 2.4 g/dL (3.4-5.0) L 03/21/20 07:10 Globulin 4.1 g/dL (2.5-4.5) 03/21/20 07:10 Albumin/Globulin Ratio 0.6 Ratio (1.1-2.1) L 03/21/20 07:10 Prealbumin 21.6 mg/dL (18-35.7) 03/21/20 07:10 Triglycerides 77 mg/dL (0-150) 03/21/20 07:10 Specimen Type Catherized urine 03/18/20 16:00 Urine Color Yellow (YELLOW) 03/18/20 16:00 Urine Appearance Clear (CLEAR) 03/18/20 16:00 Urine pH 6.0 (5.0 - 8.0) 03/18/20 16:00 Ur Specific [place] 1.025 (1.000-1.030) 03/18/20 16:00 Urine Protein 1+ (NEGATIVE) 03/18/20 16:00 Urine Glucose (UA) Negative (NEGATIVE) 03/18/20 16:00 Urine Ketones Negative (NEGATIVE) 03/18/20 16:00 Urine Occult Blood Negative (NEGATIVE) 03/18/20 16:00 Urine Nitrite Negative (NEGATIVE) 03/18/20 16:00 Urine Bilirubin Negative (NEGATIVE) 03/18/20 16:00 Urine Urobilinogen Normal (NORMAL) 03/18/20 16:00 Ur Leukocyte Esterase Negative (NEGATIVE) 03/18/20 16:00 Urine RBC None seen /HPF (0-3) 03/18/20 16:00 Urine WBC None seen /HPF (0-5) 03/18/20 16:00 Ur Squamous Epith Cells Negative /HPF (NEGATIVE) 03/18/20 16:00 Urine Bacteria Negative /HPF (NEGATIVE) 03/18/20 16:00 Coarse Granular Casts Rare /HPF (NEGATIVE) 03/18/20 16:00 Ur Culture Indicated? No/not indicated 03/18/20 16:00 Blood Type A POSITIVE 03/17/20 11:00 - Plan (1) Pneumonia due to COVID-19 virus Status: Acute Plan: NS AT 75ML/HR, TPN, REMDESIVIR 100MG IV DAILY, ACTEMRA 400MG IV X 1 DOSE, LEVAQUIN 750MG IV Q48, PULMICORT NEB TX BID, ALBUTEROL NEB TX QID, MUCOMYST IN NEBS QID, XANAX 0.5MG PO DAILY PRN, ATORVASTATIN 80MG PO HS, JABARI ELIZABETH PERLES TID, TUSSIONEX 5ML PO Q12H PRN, DIFLUCAN 100MG PO DAILY, IVERMECTIN- PHARMACY TO DOSE, MAGIC MOUTHWASH QID, MILK OF MAG 30ML PO BID, COLACE 100MG PO HS, MELATONIN 10MG PO HS, SOLU-MEDROL 125MG IV Q6H, SINGULAIR 10MG PO HS, PROTONIX 40MG IV BID, THIAMINE 200MG IV BID, ZINC SULFATE 220MG PO DAILY, ZYRTEC 10MG PO HS, VITAMIN D3 DAILY, PEPCID 20MG IV DAILY, HEPARIN DRIP, ATIVAN 1MG IV Q4H MAGDALENA, GEODON 20MG IV BID, AND HUMULIN R SLIDING SCALE (2) Hypoxia Status: Acute
[2020-03-21] MEDS: LASIX IVP SCH ×2 (11:48→21:12)
[2020-03-21] MEDS: LOPRESSOR INJ 5 MG AMP IVP SCH ×3 (11:49→23:09)
[2020-03-21] MEDS: CATAPRES-TTS-3 TD SCH (11:59)
[2020-03-21] MEDS: MELATONIN PO SCH (21:01)
[2020-03-21] MEDS: SINGULAIR TAB 10 MG PO SCH (21:02)
[2020-03-21] MEDS: LIPOSYN III 20% 100ML 100 ML IV SCH (21:02)
[2020-03-21] MEDS: SNACK - Diabetic Appropriate PO SCH (21:26)
[2020-03-21] MEDS: COLACE CAP 100 MG PO SCH (21:27)
[2020-03-21] MEDS: LIPITOR TAB 80 MG PO SCH (22:14)
[2020-03-22] MEDS: ATIVAN INJ 2 MG VIAL IVP SCH ×6 (00:31→20:04)
[2020-03-22] MEDS: TRACE ELEMENTS IV SCH ×10 (03:26→13:48)
[2020-03-22] MEDS: [UNRECOGNIZED DRUG - OTHER] IV SCH ×10 (03:26→13:48)
[2020-03-22] MEDS: CLINIMIX IV SCH ×10 (03:26→13:48)
[2020-03-22] MEDS: MVI IV SCH ×10 (03:26→13:48)
[2020-03-22] MEDS: SOLU-Medrol 125 MG VIAL IVP SCH ×4 (03:29→20:06)
[2020-03-22] MEDS: HEPARIN SODIUM IN D5W 25,000 UNITS/500 ML BAG IV PRN (03:49)
[2020-03-22 04:54] LABS: ABG BASE EXCESS 22.3 mmol/L (-2.0-2.0)
[2020-03-22 04:56] LABS: ABG ALLEN TEST POS
[2020-03-22] MEDS: TESSALON PERLES PO SCH ×3 (05:03→22:23)
[2020-03-22] MEDS: NS 1/2 1000 ML IV 1,000 ML IV SCH ×2 (05:03→16:24)
[2020-03-22] MEDS: LOPRESSOR INJ 5 MG AMP IVP SCH ×4 (05:16→22:26)
[2020-03-22] MEDS ORDERED: NS 1/2 1000 ML IV 1,000 ML IV ONE (05:25)
[2020-03-22] MEDS: HumuLIN R SUBCUT PRN ×3 (05:56→17:45)
[2020-03-22 05:59] LABS: BASOPHILS % (AUTO) 0.3 % (0.2-1.0); HEMATOCRIT 47.1 % (36.0-47.0); HEMOGLOBIN 15.7 g/dL (12.0-16.0); LYMPHOCYTES # (AUTO) 0.9 X10^3/uL (1.3-2.9); LYMPHOCYTES % (AUTO) 8.6 % (21.0-51.0); MEAN CORPUSCULAR HEMOGLOBIN 29.9 pg (27.0-34.0); MEAN CORPUSCULAR HGB CONC 33.4 g/dL (33.0-35.0); MEAN CORPUSCULAR VOLUME 89.4 fL (80.0-100.0); MEAN PLATELET VOLUME 8.8 fL (7.4-11.0); MONOCYTES % (AUTO) 10.1 % (0.0-13.0); NEUTROPHILS # (AUTO) 8.1 x10^3/uL (2.2-4.8); PLATELET COUNT 232 X10^3/uL (150.0-450.0); RED BLOOD COUNT 5.27 X10^6/uL (3.5-5.4); RED CELL DISTRIBUTION WIDTH 12.7 % (11.6-16.5)
[2020-03-22 06:02] LABS: ALANINE AMINOTRANSFERASE 18 Units/L (12-78); ALBUMIN 2.5 g/dL (3.4-5.0); ALKALINE PHOSPHATASE 62 Units/L (46-116); ASPARTATE AMINO TRANSFERASE 35 Units/L (15-37); BLOOD UREA NITROGEN 18 mg/dL (7-18); CALCIUM 8.5 mg/dL (8.5-10.1); CARBON DIOXIDE 37.9 mmol/L (21-32); CHLORIDE 97 mmol/L (98-107); COR CA(FOR HYPOALB) 9.7 mg/dL (8.5-10.1); COR NA(FOR HYPERGLY) 144 mmol/L (136-145); CREATININE 1.03 mg/dL (0.55-1.02); MAGNESIUM 1.7 mg/dL (1.7-2.9); SODIUM 138 mmol/L (136-145); TOTAL PROTEIN 6.5 g/dL (6.4-8.2); eGFR NON BLACK RACES 55 (>60)
--- NOTE | 2020-03-22 06:27 | RAD ---
HISTORYSOBSTUDYCHEST, 1 VIEWCOMPARISONOne day prior.TECHNIQUEAP view of the chestFINDINGSRight IJ central line in good position. The cardiac silhouette is stably enlarged. Mediastinal contours appear stable. No significant change in mild bilateral interstitial opacities. No definite pleural effusion or pneumothorax.IMPRESSIONNo significant change.Electronically signed by: Alf Smith (Mar 22, 2020 06:26:41)
[2020-03-22 07:05] LABS: BAND NEUTROPHILS % 2 % (0-10)
[2020-03-22 07:06] LABS: PLATELET MORPHOLOGY COMMENT NORMAL (NORMAL)
[2020-03-22] MEDS ORDERED: HEPARIN SODIUM INJ 5000 UNITS IVP ONE (08:05)
[2020-03-22] MEDS: MILK OF MAGNESIA PO SCH ×2 (08:40→20:07)
[2020-03-22] MEDS: DIFLUCAN PO SCH (08:40)
[2020-03-22] MEDS: PULMICORT NEB TX 0.5 MG NEB SCH ×2 (09:00→20:46)
[2020-03-22] MEDS: MUCOMYST (RESPIRATORY USE ONLY) NEB SCH ×2 (09:00→20:46)
[2020-03-22] MEDS: ACCUNEB 1.25 MG NEBULE NEB SCH ×4 (09:00→20:45)
[2020-03-22] MEDS: VITAMIN D3 125 mcg (5,000 UNITS) PO SCH (11:00)
[2020-03-22] MEDS: GEODON INJ IM SCH ×2 (11:00→22:36)
[2020-03-22] MEDS: ZyrTEC TAB 10 MG PO SCH (11:01)
[2020-03-22] MEDS: ZINC SULFATE PO SCH (11:01)
[2020-03-22] MEDS: PEPCID 20 MG IV PREMIX* 10 MG/25 ML BAG IV SCH (11:02)
[2020-03-22] MEDS: PROTONIX INJ 40 MG VIAL IVP SCH ×2 (11:02→20:06)
[2020-03-22] MEDS: SNACK - Diabetic Appropriate PO SCH (20:00)
[2020-03-22] MEDS: SINGULAIR TAB 10 MG PO SCH (20:17)
[2020-03-22] MEDS: COLACE CAP 100 MG PO SCH (20:17)
[2020-03-22] MEDS: MELATONIN PO SCH (20:17)
[2020-03-22] MEDS: LIPOSYN III 20% 100ML 100 ML IV SCH (20:19)
[2020-03-22] MEDS: LIPITOR TAB 80 MG PO SCH (22:24)
[2020-03-22] MEDS ORDERED: GEODON INJ IM ONE (22:26)
[2020-03-23] MEDS: HumuLIN R SUBCUT PRN ×2 (01:34→17:27)
[2020-03-23] MEDS: CLINIMIX IV SCH ×10 (02:39→17:29)
[2020-03-23] MEDS: TRACE ELEMENTS IV SCH ×10 (02:39→17:29)
[2020-03-23] MEDS: MVI IV SCH ×10 (02:39→17:29)
[2020-03-23] MEDS: [UNRECOGNIZED DRUG - OTHER] IV SCH ×10 (02:39→17:29)
[2020-03-23] MEDS: SOLU-Medrol 125 MG VIAL IVP SCH ×4 (03:52→22:00)
[2020-03-23] MEDS: ATIVAN INJ 2 MG VIAL IVP SCH ×6 (04:24→22:00)
[2020-03-23] MEDS: LOPRESSOR INJ 5 MG AMP IVP SCH ×3 (04:25→17:16)
[2020-03-23 08:53] LABS: BASOPHILS % (AUTO) 0.4 % (0.2-1.0); EOSINOPHILS % (AUTO) 0.3 % (0.9-2.9); HEMATOCRIT 48.9 % (36.0-47.0); HEMOGLOBIN 15.9 g/dL (12.0-16.0); LYMPHOCYTES # (AUTO) 0.9 X10^3/uL (1.3-2.9); LYMPHOCYTES % (AUTO) 10.6 % (21.0-51.0); MEAN CORPUSCULAR HEMOGLOBIN 29.1 pg (27.0-34.0); MEAN CORPUSCULAR HGB CONC 32.5 g/dL (33.0-35.0); MEAN CORPUSCULAR VOLUME 89.5 fL (80.0-100.0); MEAN PLATELET VOLUME 8.7 fL (7.4-11.0); MONOCYTES % (AUTO) 12.6 % (0.0-13.0); NEUTROPHILS # (AUTO) 6.4 x10^3/uL (2.2-4.8); NEUTROPHILS % (AUTO) 76.1 % (42.0-75.0); PLATELET COUNT 218 X10^3/uL (150.0-450.0); RED BLOOD COUNT 5.47 X10^6/uL (3.5-5.4); WHITE BLOOD COUNT 8.3 X10^3/uL (3.6-10.0)
[2020-03-23] MEDS: MUCOMYST (RESPIRATORY USE ONLY) NEB SCH ×2 (08:53→20:30)
[2020-03-23] MEDS: PULMICORT NEB TX 0.5 MG NEB SCH ×2 (08:53→20:30)
[2020-03-23] MEDS: ACCUNEB 1.25 MG NEBULE NEB SCH ×3 (08:53→20:30)
[2020-03-23 09:04] LABS: ALBUMIN 2.4 g/dL (3.4-5.0); CALCIUM 8.9 mg/dL (8.5-10.1); COR CA(FOR HYPOALB) 10.2 mg/dL (8.5-10.1); CREATININE 1.26 mg/dL (0.55-1.02); TOTAL PROTEIN 6.1 g/dL (6.4-8.2)
[2020-03-23 09:11] LABS: CARBON DIOXIDE 41.6 mmol/L (21-32)
[2020-03-23 09:15] LABS: PHOSPHORUS 3.7 mg/dL (2.6-4.7)
[2020-03-23 09:26] LABS: PLATELET MORPHOLOGY COMMENT NORMAL (NORMAL)
[2020-03-23] MEDS: PROTONIX INJ 40 MG VIAL IVP SCH ×2 (10:52→22:00)
[2020-03-23] MEDS: TESSALON PERLES PO SCH ×3 (10:53→22:00)
[2020-03-23] MEDS: ZyrTEC TAB 10 MG PO SCH (10:53)
[2020-03-23] MEDS: VITAMIN D3 125 mcg (5,000 UNITS) PO SCH (10:54)
[2020-03-23] MEDS: DIFLUCAN PO SCH (10:54)
[2020-03-23] MEDS: MILK OF MAGNESIA PO SCH ×2 (10:54→22:00)
[2020-03-23] MEDS: ZINC SULFATE PO SCH (10:55)
[2020-03-23] MEDS: PEPCID 20 MG IV PREMIX* 10 MG/25 ML BAG IV SCH ×2 (10:55→12:36)
[2020-03-23] MEDS: GEODON INJ IM SCH ×2 (11:17→22:29)
--- NOTE | 2020-03-23 13:37 | PCM.PROG ---
Progress Note Progress Note for Day of Date of Exam: 03/23/20 Subjective Subjective: Patient seen at bedside, no acute overnight events. She is being treated for COVID-19 pneumonia and acute respiratory failure with hypoxia. Patient is awake and alert to herself and place on today's exam. She is able to answer questions. She is asking to remove the restraints. Patient has had some agitation during this admission and is currently in restraints. Patient apparently pulled out her central line yesterday. She was also not given her oral meds yesterday due to decreased responsiveness. She is currently on 3L NC. Labs: WBC 8.3 Hgb 15.9 K 3.2 BUN/Cr: 26/1.26 Glucose 259 ABG 7.49/65/56/49.5 on 3L Plan: patient currently has 1 IV access and that is being used to give the heparin drip. Obtain another IV access. Continue IV antibiotics including Levaquin and remdesivir. Continue solumedrol. Wean O2 as tolerated, aggressive pulmonary toilet with IS, bronchodilators. Continue hydration with IVF and TPN. Replace K. Try oral meds today as patient is awake and more responsive. Time spent for clinical assessment, physical examination, reviewing labs/imaging, decision making and documentation greater sandoval 75 mins. Past Medical Family Social History Past Med/Fam/Surg Hx: No changes since H&P Allergies: Allergies No Known Drug Allergies Allergy (Verified 03/13/20 15:38) Review of Systems ROS: No change since H&P Vital Signs and I&O's Vital Signs: Temperature 97.4 F Pulse Rate [Right Radial] 66 Pulse Rate 63 Respiratory Rate 24 Blood Pressure [Right Arm] 160/76 Blood Pressure 146/69 O2 Sat by Pulse Oximetry 94 Intake and Output: Intake & Output 03/20/20 03/21/20 03/22/20 03/23/20 23:59 23:59 23:59 23:59 Intake Total 2436.3 / 2436.3 2277 / 2277 2986 / 2986 750 / 750 Balance 2436.3 / 2436.3 2277 / 2277 2986 / 2986 750 / 750 Physical Exam Oriented: Person and Place Eyes: Normal Ear: Normal Nose: Normal Throat: Normal Respiratory: Generalized and Diminished Cardiovascular: Normal Auscultation: Bowel Sounds: Normal Tenderness: Normal Skin: Normal Musculoskeletal: Normal Psychiatric: Agitation Mood Description: Anxious Affect: Angry Speech Pattern: Clear and Appropriate Laboratory and Diagnostics Result Diagrams: 03/23/20 08:36 03/23/20 08:36 Labs: 03/18/20 11:20 Blood Blood Culture - Final 03/18/20 11:55 Blood Blood Culture - Preliminary Laboratory WBC 8.3 X10^3/uL (3.6-10.0) 03/23/20 08:36 RBC 5.47 X10^6/uL (3.5-5.4) H 03/23/20 08:36 Hgb 15.9 g/dL (12.0-16.0) 03/23/20 08:36 Hct 48.9 % (36.0-47.0) H 03/23/20 08:36 MCV 89.5 fL (80.0-100.0) 03/23/20 08:36 MCH 29.1 pg (27.0-34.0) 03/23/20 08:36 MCHC 32.5 g/dL (33.0-35.0) L 03/23/20 08:36 RDW 13.0 % (11.6-16.5) 03/23/20 08:36 Plt Count 218 X10^3/uL (150.0-450.0) 03/23/20 08:36 Plt Count Comment Adequate (ADEQUATE) 03/23/20 08:36 MPV 8.7 fL (7.4-11.0) 03/23/20 08:36 Neut % (Auto) 76.1 % (42.0-75.0) H 03/23/20 08:36 Lymph % (Auto) 10.6 % (21.0-51.0) L 03/23/20 08:36 [place] % (Auto) 12.6 % (0.0-13.0) 03/23/20 08:36 Eos % (Auto) 0.3 % (0.9-2.9) L 03/23/20 08:36 Baso % (Auto) 0.4 % (0.2-1.0) 03/23/20 08:36 Neut # (Auto) 6.4 x10^3/uL (2.2-4.8) H 03/23/20 08:36 Lymph # (Auto) 0.9 X10^3/uL (1.3-2.9) L 03/23/20 08:36 [place] # (Auto) 1.0 x10^3/uL (0.3-0.8) H 03/23/20 08:36 Eos # (Auto) 0.0 x10^3/uL (0.0-0.2) 03/23/20 08:36 Baso # (Auto) 0.0 X10^3/uL (0.0-0.1) 03/23/20 08:36 Absolute Nucleated RBC 0.2 /100WBC 03/23/20 08:36 Total Counted 100 03/23/20 08:36 Neutrophils % (Manual) 68 % (39-76) 03/23/20 08:36 Band Neutrophils % 2 % (0-10) 03/22/20 04:50 Lymphocytes % (Manual) 16 % (13-43) 03/23/20 08:36 Monocytes % (Manual) 16 % (4-9) H 03/23/20 08:36 Nucleated RBCs 1 03/22/20 04:50 Plt Morphology Comment Normal (NORMAL) 03/23/20 08:36 RBC Morphology Normal (NORMAL) 03/23/20 08:36 PT 14.4 SECONDS (11.8-14.3) 03/18/20 05:00 INR Target Range - 03/18/20 05:00 INR 1.15 (0.8-1.3) 03/18/20 05:00 APTT 128.9 SECONDS (22.9-36.5) H 03/23/20 08:36 PTT Comment - 03/23/20 08:36 D-Dimer 2.27 ug/ml (0.0-0.57) H* 03/22/20 04:50 Sample Site Rr 03/22/20 04:45 ABG pH 7.490 (7.35-7.45) H 03/22/20 04:45 ABG pCO2 65.0 mmHg (35.0-45.0) H* 03/22/20 04:45 ABG pO2 56.0 mmHg (80.0-100.0) L 03/22/20 04:45 ABG HCO3 49.5 mmol/L (22-26) H* 03/22/20 04:45 ABG O2 Saturation 91.0 % (90-100) 03/22/20 04:45 ABG Base Excess 22.3 mmol/L (-2.0-2.0) H 03/22/20 04:45 Dylon Test Pos 03/22/20 04:45 A-a Gradient 91.0 mmHg 03/22/20 04:45 FiO2 32.0 03/22/20 04:45 Blood Gas Comments Eladio well, kh 03/22/20 04:45 Sodium 142 mmol/L (136-145) 03/23/20 08:36 Corrected Sodium 146 mmol/L (136-145) H 03/23/20 08:36 Potassium 3.2 mmol/L (3.5-5.1) L 03/23/20 08:36 Chloride 98 mmol/L (98-107) 03/23/20 08:36 Carbon Dioxide 41.6 mmol/L (21-32) H* 03/23/20 08:36 BUN 26 mg/dL (7-18) H 03/23/20 08:36 Creatinine 1.26 mg/dL (0.55-1.02) H 03/23/20 08:36 Est GFR (MDRD) Af Amer 53 (>60) L 03/23/20 08:36 Est GFR (MDRD) Non-Af 44 (>60) L 03/23/20 08:36 Glucose 259 mg/dL (65-99) H 03/23/20 08:36 POC Glucose (mg/dL) 196 mg/dL (65-99) H 03/23/20 11:47 Calcium 8.9 mg/dL (8.5-10.1) 03/23/20 08:36 Corrected Calcium 10.2 mg/dL (8.5-10.1) H 03/23/20 08:36 Phosphorus 3.7 mg/dL (2.6-4.7) 03/23/20 08:36 Magnesium 2.0 mg/dL (1.7-2.9) 03/23/20 08:36 Ferritin 1590 ng/mL (8-252) H 03/22/20 04:50 Total Bilirubin 0.60 mg/dL (0.2-1.0) 03/23/20 08:36 AST 27 Units/L (15-37) 03/23/20 08:36 ALT 22 Units/L (12-78) 03/23/20 08:36 Alkaline Phosphatase 59 Units/L (46-116) 03/23/20 08:36 C-Reactive Protein 13.60 mg/L (0-3.0) H 03/22/20 04:50 B-Natriuretic Peptide 55.0 pg/mL (0-79) 03/22/20 04:50 Total Protein 6.1 g/dL (6.4-8.2) L 03/23/20 08:36 Albumin 2.4 g/dL (3.4-5.0) L 03/23/20 08:36 Globulin 3.7 g/dL (2.5-4.5) 03/23/20 08:36 Albumin/Globulin Ratio 0.6 Ratio (1.1-2.1) L 03/23/20 08:36 Prealbumin 21.6 mg/dL (18-35.7) 03/21/20 07:10 Triglycerides 79 mg/dL (0-150) 03/23/20 08:36 Specimen Type Catherized urine 03/18/20 16:00 Urine Color Yellow (YELLOW) 03/18/20 16:00 Urine Appearance Clear (CLEAR) 03/18/20 16:00 Urine pH 6.0 (5.0 - 8.0) 03/18/20 16:00 Ur Specific [place] 1.025 (1.000-1.030) 03/18/20 16:00 Urine Protein 1+ (NEGATIVE) 03/18/20 16:00 Urine Glucose (UA) Negative (NEGATIVE) 03/18/20 16:00 Urine Ketones Negative (NEGATIVE) 03/18/20 16:00 Urine Occult Blood Negative (NEGATIVE) 03/18/20 16:00 Urine Nitrite Negative (NEGATIVE) 03/18/20 16:00 Urine Bilirubin Negative (NEGATIVE) 03/18/20 16:00 Urine Urobilinogen Normal (NORMAL) 03/18/20 16:00 Ur Leukocyte Esterase Negative (NEGATIVE) 03/18/20 16:00 Urine RBC None seen /HPF (0-3) 03/18/20 16:00 Urine WBC None seen /HPF (0-5) 03/18/20 16:00 Ur Squamous Epith Cells Negative /HPF (NEGATIVE) 03/18/20 16:00 Urine Bacteria Negative /HPF (NEGATIVE) 03/18/20 16:00 Coarse Granular Casts Rare /HPF (NEGATIVE) 03/18/20 16:00 Ur Culture Indicated? No/not indicated 03/18/20 16:00 Blood Type A POSITIVE 03/17/20 11:00 Plan (1) Pneumonia due to COVID-19 virus: Status: Acute Plan: NS AT 75ML/HR, TPN, REMDESIVIR 100MG IV DAILY, ACTEMRA 400MG IV X 1 DOSE, LEVAQUIN 750MG IV Q48, PULMICORT NEB TX BID, ALBUTEROL NEB TX QID, MUCOMYST IN NEBS QID, XANAX 0.5MG PO DAILY PRN, ATORVASTATIN 80MG PO HS, TESSALON PERLES TID, TUSSIONEX 5ML PO Q12H PRN, DIFLUCAN 100MG PO DAILY, IVERMECTIN- PHARMACY TO DOSE, MAGIC MOUTHWASH QID, MILK OF MAG 30ML PO BID, COLACE 100MG PO HS, MELATONIN 10MG PO HS, SOLU-MEDROL 125MG IV Q6H, SINGULAIR 10MG PO HS, PROTONIX 40MG IV BID, THIAMINE 200MG IV BID, ZINC SULFATE 220MG PO DAILY, ZYRTEC 10MG PO HS, VITAMIN D3 DAILY, PEPCID 20MG IV DAILY, HEPARIN DRIP, ATIVAN 1MG IV Q4H MAGDALENA, GEODON 20MG IV BID, AND HUMULIN R SLIDING SCALE (2) Hypoxia: Status: Acute (3) Dementia: Status: Acute Qualifiers: Alzheimer's disease onset: unspecified onset Dementia behavioral disturbance: with behavioral disturbance Dementia type: Alzheimer's Qualified Code(s): G30.9 - Alzheimer's disease, unspecified; F02.81 - Dementia in other diseases classified elsewhere with behavioral disturbance (4) Agitation: Status: Acute (5) Hypokalemia: Status: Acute
[2020-03-23] MEDS: LEVAQUIN PREMIX IV 750 MG 750 MG/150 ML BAG IV SCH (14:18)
[2020-03-23] MEDS ORDERED: LOVENOX INJ 30 MG SYR SC SCH (15:00)
[2020-03-23] MEDS ORDERED: LOVENOX INJ 60 MG SYR SC SCH (15:00)
[2020-03-23] MEDS ORDERED: POTASSIUM CHL 40 MEQ/NS 0.45% 500 ML IV PRN (15:15)
[2020-03-23] MEDS ORDERED: K-DUR TAB 20 MEQ PO PRN (15:15)
[2020-03-23] MEDS ORDERED: POTASSIUM CHL 60 MEQ/NS 0.45% 500 ML IV PRN (15:15)
[2020-03-23] MEDS ORDERED: POTASSIUM CHLORIDE LIQ 20 MEQ UDC PO PRN (15:15)
[2020-03-23] MEDS ORDERED: KLOR-CON PO PRN (15:15)
[2020-03-23] MEDS ORDERED: MICRO K EXTEN CAP 10 MEQ PO PRN (15:15)
[2020-03-23] MEDS: K-DUR TAB 20 MEQ PO SCH ×2 (16:20→22:34)
[2020-03-23] MEDS: K-RIDER 10 MEQ/NS 100 ML 10 MEQ/100 ML BAG IV PRN ×2 (16:29→18:41)
[2020-03-23] MEDS: NS 1/2 1000 ML IV 1,000 ML IV SCH (17:29)
[2020-03-23 18:34] LABS: ABG HCO3 49.5 mmol/L (22-26)
[2020-03-23] MEDS ORDERED: GEODON INJ IM ONE (21:42)
[2020-03-23] MEDS: LIPITOR TAB 80 MG PO SCH (22:00)
[2020-03-23] MEDS: MELATONIN PO SCH (22:00)
[2020-03-23] MEDS: SINGULAIR TAB 10 MG PO SCH (22:00)
[2020-03-23] MEDS: SNACK - Diabetic Appropriate PO SCH (22:00)
[2020-03-23] MEDS: LIPOSYN III 20% 100ML 100 ML IV SCH (22:00)
[2020-03-23] MEDS: COLACE CAP 100 MG PO SCH (22:00)
[2020-03-23] MEDS: LOVENOX INJ 60 MG SYR SC SCH (22:31)
[2020-03-23] MEDS: LOVENOX INJ 30 MG SYR SC SCH (22:32)
[2020-03-24] MEDS: [UNRECOGNIZED DRUG - OTHER] IV SCH ×15 (01:44→22:16)
[2020-03-24] MEDS: MVI IV SCH ×15 (01:44→22:16)
[2020-03-24] MEDS: TRACE ELEMENTS IV SCH ×15 (01:44→22:16)
[2020-03-24] MEDS: CLINIMIX IV SCH ×15 (01:44→22:16)
[2020-03-24] MEDS: HumuLIN R SUBCUT PRN ×4 (01:57→17:05)
[2020-03-24] MEDS: ATIVAN INJ 2 MG VIAL IVP SCH ×6 (04:10→21:00)
[2020-03-24] MEDS: SOLU-Medrol 125 MG VIAL IVP SCH ×4 (04:10→22:00)
[2020-03-24] MEDS: LOPRESSOR INJ 5 MG AMP IVP SCH ×5 (06:20→23:21)
[2020-03-24] MEDS: TESSALON PERLES PO SCH ×3 (06:27→22:16)
[2020-03-24 08:04] LABS: CALCIUM 8.8 mg/dL (8.5-10.1); CREATININE 1.3 mg/dL (0.55-1.02)
[2020-03-24 08:17] LABS: CARBON DIOXIDE 40.8 mmol/L (21-32)
[2020-03-24] MEDS: ACCUNEB 1.25 MG NEBULE NEB SCH ×4 (09:48→20:05)
[2020-03-24] MEDS: PULMICORT NEB TX 0.5 MG NEB SCH ×2 (09:48→20:05)
[2020-03-24] MEDS: MUCOMYST (RESPIRATORY USE ONLY) NEB SCH ×2 (09:48→20:05)
[2020-03-24] MEDS: VITAMIN D3 125 mcg (5,000 UNITS) PO SCH (10:23)
[2020-03-24] MEDS: DIFLUCAN PO SCH (10:23)
[2020-03-24] MEDS: ZINC SULFATE PO SCH (10:24)
[2020-03-24] MEDS: K-DUR TAB 20 MEQ PO SCH ×2 (10:24→22:22)
[2020-03-24] MEDS: ZyrTEC TAB 10 MG PO SCH (10:24)
[2020-03-24] MEDS: LOVENOX INJ 30 MG SYR SC SCH ×2 (10:25→22:00)
[2020-03-24] MEDS: LOVENOX INJ 60 MG SYR SC SCH ×2 (10:25→22:20)
[2020-03-24] MEDS: GEODON INJ IM SCH ×2 (10:26→22:15)
[2020-03-24] MEDS: PEPCID 20 MG IV PREMIX* 10 MG/25 ML BAG IV SCH (10:26)
[2020-03-24] MEDS: MILK OF MAGNESIA PO SCH ×2 (10:27→22:00)
[2020-03-24] MEDS: PROTONIX INJ 40 MG VIAL IVP SCH ×2 (10:27→22:00)
[2020-03-24] MEDS: NS 1000 ML 1,000 ML IV SCH (12:03)
--- NOTE | 2020-03-24 12:24 | PCM.PROG ---
Progress Note Progress Note for Day of Date of Exam: 03/24/20 Subjective Subjective: Patient seen at bedside, no acute overnight events. She is being treated for COVID-19 pneumonia and acute respiratory failure with hypoxia. Patient had less agitation yesterday. She is still in restraints. She is awake and able to talk a little bit. She still has 1 IV access. She has been on 3-4 L NC. She did eat some pudding yesterday. Labs: WBC 8.3 Hgb 15.9 K 3.7 BUN/Cr: 34/1.30 Glucose 396 ABG 7.49/65/56/49.5 on 3L Plan:Continue IV antibiotics including Levaquin and remdesivir. Continue solumedrol. Heprain was stopped yesterday and switched to FD lovenox due to having limited IV access. Wean O2 as tolerated, aggressive pulmonary toilet with IS, bronchodilators. Continue hydration with IVF and TPN. Will DC D5 and start NS. Replace K. Advance diet as tolerated. Past Medical Family Social History Past Med/Fam/Surg Hx: No changes since H&P Allergies: Allergies No Known Drug Allergies Allergy (Verified 03/13/20 15:38) Review of Systems ROS: No change since H&P Vital Signs and I&O's Vital Signs: Temperature 98.2 F Pulse Rate [Right Radial] 75 Pulse Rate 80 Respiratory Rate 20 Blood Pressure [Right Arm] 146/64 Blood Pressure 146/64 O2 Sat by Pulse Oximetry 97 Intake and Output: Intake & Output 03/21/20 03/22/20 03/23/20 03/24/20 23:59 23:59 23:59 23:59 Intake Total 2277 / 2277 2986 / 2986 1150 / 1150 420 / 420 Balance 2277 / 2277 2986 / 2986 1150 / 1150 420 / 420 Physical Exam Oriented: Person Eyes: Normal Ear: Normal Nose: Normal Throat: Normal Respiratory: Generalized and Diminished Cardiovascular: Normal Auscultation: Bowel Sounds: Normal Tenderness: Normal Skin: Normal and Decreased Turgur Musculoskeletal: Normal Psychiatric: Agitation Mood Description: Calm Affect: Normal Speech Pattern: Appropriate and Delayed Laboratory and Diagnostics Result Diagrams: 03/23/20 08:36 03/24/20 07:40 Labs: 03/18/20 11:55 Blood Blood Culture - Final 03/18/20 11:20 Blood Blood Culture - Final Laboratory WBC 8.3 X10^3/uL (3.6-10.0) 03/23/20 08:36 RBC 5.47 X10^6/uL (3.5-5.4) H 03/23/20 08:36 Hgb 15.9 g/dL (12.0-16.0) 03/23/20 08:36 Hct 48.9 % (36.0-47.0) H 03/23/20 08:36 MCV 89.5 fL (80.0-100.0) 03/23/20 08:36 MCH 29.1 pg (27.0-34.0) 03/23/20 08:36 MCHC 32.5 g/dL (33.0-35.0) L 03/23/20 08:36 RDW 13.0 % (11.6-16.5) 03/23/20 08:36 Plt Count 218 X10^3/uL (150.0-450.0) 03/23/20 08:36 Plt Count Comment Adequate (ADEQUATE) 03/23/20 08:36 MPV 8.7 fL (7.4-11.0) 03/23/20 08:36 Neut % (Auto) 76.1 % (42.0-75.0) H 03/23/20 08:36 Lymph % (Auto) 10.6 % (21.0-51.0) L 03/23/20 08:36 [place] % (Auto) 12.6 % (0.0-13.0) 03/23/20 08:36 Eos % (Auto) 0.3 % (0.9-2.9) L 03/23/20 08:36 Baso % (Auto) 0.4 % (0.2-1.0) 03/23/20 08:36 Neut # (Auto) 6.4 x10^3/uL (2.2-4.8) H 03/23/20 08:36 Lymph # (Auto) 0.9 X10^3/uL (1.3-2.9) L 03/23/20 08:36 [place] # (Auto) 1.0 x10^3/uL (0.3-0.8) H 03/23/20 08:36 Eos # (Auto) 0.0 x10^3/uL (0.0-0.2) 03/23/20 08:36 Baso # (Auto) 0.0 X10^3/uL (0.0-0.1) 03/23/20 08:36 Absolute Nucleated RBC 0.2 /100WBC 03/23/20 08:36 Total Counted 100 03/23/20 08:36 Neutrophils % (Manual) 68 % (39-76) 03/23/20 08:36 Band Neutrophils % 2 % (0-10) 03/22/20 04:50 Lymphocytes % (Manual) 16 % (13-43) 03/23/20 08:36 Monocytes % (Manual) 16 % (4-9) H 03/23/20 08:36 Nucleated RBCs 1 03/22/20 04:50 Plt Morphology Comment Normal (NORMAL) 03/23/20 08:36 RBC Morphology Normal (NORMAL) 03/23/20 08:36 PT 14.4 SECONDS (11.8-14.3) 03/18/20 05:00 INR Target Range - 03/18/20 05:00 INR 1.15 (0.8-1.3) 03/18/20 05:00 APTT 128.9 SECONDS (22.9-36.5) H 03/23/20 08:36 PTT Comment - 03/23/20 08:36 D-Dimer 2.27 ug/ml (0.0-0.57) H* 03/22/20 04:50 Sample Site Rr 03/22/20 04:45 ABG pH 7.490 (7.35-7.45) H 03/22/20 04:45 ABG pCO2 65.0 mmHg (35.0-45.0) H* 03/22/20 04:45 ABG pO2 56.0 mmHg (80.0-100.0) L 03/22/20 04:45 ABG HCO3 49.5 mmol/L (22-26) H* 03/22/20 04:45 ABG O2 Saturation 91.0 % (90-100) 03/22/20 04:45 ABG Base Excess 22.3 mmol/L (-2.0-2.0) H 03/22/20 04:45 Dylon Test Pos 03/22/20 04:45 A-a Gradient 91.0 mmHg 03/22/20 04:45 FiO2 32.0 03/22/20 04:45 Blood Gas Comments Eladio well, kh 03/22/20 04:45 Sodium 140 mmol/L (136-145) 03/24/20 07:40 Corrected Sodium 147 mmol/L (136-145) H 03/24/20 07:40 Potassium 3.7 mmol/L (3.5-5.1) 03/24/20 07:40 Chloride 98 mmol/L (98-107) 03/24/20 07:40 Carbon Dioxide 40.8 mmol/L (21-32) H* 03/24/20 07:40 BUN 34 mg/dL (7-18) H 03/24/20 07:40 Creatinine 1.30 mg/dL (0.55-1.02) H 03/24/20 07:40 Est GFR (MDRD) Af Amer 51 (>60) L 03/24/20 07:40 Est GFR (MDRD) Non-Af 42 (>60) L 03/24/20 07:40 Glucose 396 mg/dL (65-99) H 03/24/20 07:40 POC Glucose (mg/dL) 324 mg/dL (65-99) H 03/24/20 11:26 Calcium 8.8 mg/dL (8.5-10.1) 03/24/20 07:40 Corrected Calcium 10.2 mg/dL (8.5-10.1) H 03/23/20 08:36 Phosphorus 3.7 mg/dL (2.6-4.7) 03/23/20 08:36 Magnesium 2.1 mg/dL (1.7-2.9) 03/23/20 15:37 Ferritin 1590 ng/mL (8-252) H 03/22/20 04:50 Total Bilirubin 0.60 mg/dL (0.2-1.0) 03/23/20 08:36 AST 27 Units/L (15-37) 03/23/20 08:36 ALT 22 Units/L (12-78) 03/23/20 08:36 Alkaline Phosphatase 59 Units/L (46-116) 03/23/20 08:36 C-Reactive Protein 13.60 mg/L (0-3.0) H 03/22/20 04:50 B-Natriuretic Peptide 55.0 pg/mL (0-79) 03/22/20 04:50 Total Protein 6.1 g/dL (6.4-8.2) L 03/23/20 08:36 Albumin 2.4 g/dL (3.4-5.0) L 03/23/20 08:36 Globulin 3.7 g/dL (2.5-4.5) 03/23/20 08:36 Albumin/Globulin Ratio 0.6 Ratio (1.1-2.1) L 03/23/20 08:36 Prealbumin 21.6 mg/dL (18-35.7) 03/21/20 07:10 Triglycerides 79 mg/dL (0-150) 03/23/20 08:36 Specimen Type Catherized urine 03/18/20 16:00 Urine Color Yellow (YELLOW) 03/18/20 16:00 Urine Appearance Clear (CLEAR) 03/18/20 16:00 Urine pH 6.0 (5.0 - 8.0) 03/18/20 16:00 Ur Specific [place] 1.025 (1.000-1.030) 03/18/20 16:00 Urine Protein 1+ (NEGATIVE) 03/18/20 16:00 Urine Glucose (UA) Negative (NEGATIVE) 03/18/20 16:00 Urine Ketones Negative (NEGATIVE) 03/18/20 16:00 Urine Occult Blood Negative (NEGATIVE) 03/18/20 16:00 Urine Nitrite Negative (NEGATIVE) 03/18/20 16:00 Urine Bilirubin Negative (NEGATIVE) 03/18/20 16:00 Urine Urobilinogen Normal (NORMAL) 03/18/20 16:00 Ur Leukocyte Esterase Negative (NEGATIVE) 03/18/20 16:00 Urine RBC None seen /HPF (0-3) 03/18/20 16:00 Urine WBC None seen /HPF (0-5) 03/18/20 16:00 Ur Squamous Epith Cells Negative /HPF (NEGATIVE) 03/18/20 16:00 Urine Bacteria Negative /HPF (NEGATIVE) 03/18/20 16:00 Coarse Granular Casts Rare /HPF (NEGATIVE) 03/18/20 16:00 Ur Culture Indicated? No/not indicated 03/18/20 16:00 Blood Type A POSITIVE 03/17/20 11:00 Plan (1) Pneumonia due to COVID-19 virus: Status: Acute (2) Hypoxia: Status: Acute (3) Dementia: Status: Acute Qualifiers: Alzheimer's disease onset: unspecified onset Dementia behavioral disturbance: with behavioral disturbance Dementia type: Alzheimer's Qualified Code(s): G30.9 - Alzheimer's disease, unspecified; F02.81 - Dementia in other diseases classified elsewhere with behavioral disturbance (4) Agitation: Status: Acute (5) Hypokalemia: Status: Acute
[2020-03-24] MEDS: SINGULAIR TAB 10 MG PO SCH (22:00)
[2020-03-24] MEDS: COLACE CAP 100 MG PO SCH (22:00)
[2020-03-24] MEDS: LIPOSYN III 20% 100ML 100 ML IV SCH (22:00)
[2020-03-24] MEDS: MELATONIN PO SCH (22:00)
[2020-03-24] MEDS: LIPITOR TAB 80 MG PO SCH (22:00)
[2020-03-24] MEDS: SNACK - Diabetic Appropriate PO SCH (23:22)
[2020-03-25] MEDS: NS 1000 ML 1,000 ML IV SCH ×2 (00:19→14:57)
[2020-03-25] MEDS: ATIVAN INJ 2 MG VIAL IVP SCH ×6 (00:33→21:17)
[2020-03-25] MEDS: SOLU-Medrol 125 MG VIAL IVP SCH ×4 (02:11→21:20)
[2020-03-25] MEDS: HumuLIN R SUBCUT PRN ×2 (02:25→12:56)
[2020-03-25 04:43] LABS: ABG BASE EXCESS 22.5 mmol/L (-2.0-2.0)
[2020-03-25 04:45] LABS: ABG ALLEN TEST POS
[2020-03-25] MEDS: LOPRESSOR INJ 5 MG AMP IVP SCH ×3 (05:54→18:05)
[2020-03-25] MEDS: TESSALON PERLES PO SCH ×3 (05:55→21:21)
[2020-03-25] MEDS: TRACE ELEMENTS IV SCH ×15 (05:55→15:48)
[2020-03-25] MEDS: MVI IV SCH ×15 (05:55→15:48)
[2020-03-25] MEDS: CLINIMIX IV SCH ×15 (05:55→15:48)
[2020-03-25] MEDS: [UNRECOGNIZED DRUG - OTHER] IV SCH ×15 (05:55→15:48)
--- NOTE | 2020-03-25 05:57 | RAD ---
PROCEDURE: Chest X-ray 1 View .HISTORY: Short of breath.TECHNIQUE: AP view .COMPARISON: 03/22/2020.TECHNICAL QUALITY: Satisfactory .FINDINGS:Unremarkable cardiomediastinal silhouette.Normal central vascularity.No pulmonary consolidation, pleural fluid, masses, or pneumothorax.No acute bony abnormality.IMPRESSION:No active cardiopulmonary disease.Electronically signed by: Rigoberto Orozco (Mar 25, 2020 05:55:40)
[2020-03-25 06:41] LABS: BASOPHILS % (AUTO) 0.3 % (0.2-1.0); EOSINOPHILS % (AUTO) 0.1 % (0.9-2.9); HEMATOCRIT 45.4 % (36.0-47.0); LYMPHOCYTES # (AUTO) 0.8 X10^3/uL (1.3-2.9); LYMPHOCYTES % (AUTO) 8.1 % (21.0-51.0); MEAN CORPUSCULAR HEMOGLOBIN 29.6 pg (27.0-34.0); MEAN CORPUSCULAR VOLUME 89.6 fL (80.0-100.0); MEAN PLATELET VOLUME 9.3 fL (7.4-11.0); MONOCYTES # (AUTO) 0.9 x10^3/uL (0.3-0.8); MONOCYTES % (AUTO) 8.9 % (0.0-13.0); NEUTROPHILS # (AUTO) 8.1 x10^3/uL (2.2-4.8); NEUTROPHILS % (AUTO) 82.6 % (42.0-75.0); PLATELET COUNT 179 X10^3/uL (150.0-450.0); RED BLOOD COUNT 5.07 X10^6/uL (3.5-5.4); WHITE BLOOD COUNT 9.9 X10^3/uL (3.6-10.0)
[2020-03-25 06:54] LABS: CALCIUM 8.5 mg/dL (8.5-10.1); CARBON DIOXIDE 39.6 mmol/L (21-32); CREATININE 1.13 mg/dL (0.55-1.02)
[2020-03-25] MEDS: DIFLUCAN PO SCH (09:05)
[2020-03-25] MEDS: GEODON INJ IM SCH ×2 (09:06→21:18)
[2020-03-25] MEDS: LEVAQUIN PREMIX IV 750 MG 750 MG/150 ML BAG IV SCH (09:07)
[2020-03-25] MEDS: K-DUR TAB 20 MEQ PO SCH ×2 (09:10→21:19)
[2020-03-25] MEDS: MILK OF MAGNESIA PO SCH ×3 (09:11→23:08)
[2020-03-25] MEDS: ZyrTEC TAB 10 MG PO SCH (09:13)
[2020-03-25] MEDS: VITAMIN D3 125 mcg (5,000 UNITS) PO SCH (09:13)
[2020-03-25] MEDS: ZINC SULFATE PO SCH (09:14)
[2020-03-25] MEDS: PROTONIX INJ 40 MG VIAL IVP SCH ×2 (09:14→21:18)
[2020-03-25] MEDS: PEPCID 20 MG IV PREMIX* 10 MG/25 ML BAG IV SCH (09:14)
[2020-03-25] MEDS: MUCOMYST (RESPIRATORY USE ONLY) NEB SCH ×2 (09:50→21:50)
[2020-03-25] MEDS: ACCUNEB 1.25 MG NEBULE NEB SCH ×4 (09:50→21:50)
[2020-03-25] MEDS: PULMICORT NEB TX 0.5 MG NEB SCH ×2 (09:50→21:49)
[2020-03-25] MEDS: LOVENOX INJ 60 MG SYR SC SCH ×2 (11:10→21:20)
[2020-03-25] MEDS: LOVENOX INJ 30 MG SYR SC SCH ×2 (11:10→21:20)
--- NOTE | 2020-03-25 13:51 | PCM.PROG ---
Progress Note - Progress Note for Day of Date of Exam: 03/22/20 - Subjective Subjective: IS BEING TREATED FOR PNEUMONIA DUE TO COVID-19 AND HYPOXIA. TODAY, SHE IS LYING IN BED WITH EYES CLOSED ON MORNING ROUNDS. SHE OPENS EYES TO VERBAL STIMULI, BUT CONTINUES TO BE DISORIENTED. SHE DOES HAVE A PMH OF DEMENTIA AND ALZHEIMERS. SHE CONTINUES WITH WEAKNESS AND A NON-PRODUCTIVE COUGH THIS MORNING. SHE REMAINS ON NASAL CANNULA AT 3 LITERS/MINUTE. HER SATURATIONS HAVE BEEN 92-100% THIS MORNING AND THROUGHOUT THE NIGHT. ON EXAMINATION, HEART IS REGULAR IN RATE AND RHYTHM. BILATERAL LUNGS ARE NOTED WITH RALES THROUGHOUT. ABDOMEN IS ROUND, SOFT, AND NON-TENDER WITH NORMAL BOWEL SOUNDS NOTED IN ALL QUADRANTS. HER VITALS THIS MORNING ARE: 98.1-74-18-97%-172/78. LABS WERE OB TAINED. ABNORMAL LAB VALUES INCLUDE THE FOLLOWING: HCT 47.1, D-DIMER 2.27, CHLORIDE 97, CARBON DIOXIDE 37.9, CREATININE 1.03, GLUCOSE 332, FERRITIN 1590, CRP 13.60, ALBUMIN 2.5. ABG WAS OBTAINED AND REVEALED: PH 7.490, PC02 65, P02 56, HC03 49.5, 02 SAT 91, BASE EXCESS 22.3, A-A GRADIENT 91, FI02 32. A CHEST XRAY WAS OBTAINED AND REVEALED: Right IJ central line in good position. The cardiac silhouette is stably enlarged. Mediastinal contours appear stable. No significant change in mild bilateral interstitial opacities. No definite pleural effusion or pneumothorax. SHE IS CURRENTLY RECEIVING NS AT 30ML/HR, TPN, REMDESIVIR 100MG IV DAILY, ACTEMRA 400MG IV X 1 DOSE, LEVAQUIN 750MG IV Q48, PULMICORT NEB TX BID, ALBUTEROL NEB TX QID, MUCOMYST IN NEBS QID, XANAX 0.5MG PO DAILY PRN, LOPRESSOR 5MG IV Q6H, CLONIDINE 0.3MG TD PATCH, ATORVASTATIN 80MG PO HS, TESSALON PERLES TID, TUSSIONEX 5ML PO Q12H PRN, DIFLUCAN 100MG PO DAILY, IVERMECTIN- PHARMACY TO DOSE, MAGIC MOUTHWASH QID, MILK OF MAG 30ML PO BID, COLACE 100MG PO HS, MELATONIN 10MG PO HS, SOLU-MEDROL 125MG IV Q6H, SINGULAIR 10MG PO HS, PROTONIX 40MG IV BID, THIAMINE 200MG IV BID, ZINC SULFATE 220MG PO DAILY, ZYRTEC 10MG PO HS, VITAMIN D3 DAILY, PEPCID 20MG IV DAILY, HEPARIN DRIP, ATIVAN 0.5MG IV Q4H MAGDALENA, GEODON 10MG IM BID, AND HUMULIN R SLIDING SCALE. WE WILL CONTINUE WITH CURRENT PLAN OF CARE TODAY. OTHERWISE, WE PLAN TO FOLLOW UP WITH AM LABS, CHEST XRAY, ABG, AND CONTINUE TO MONITOR. TIME SPENT ON CLINICAL ASSESSMENT, REVIEWING LABS AND IMAGING, DECISION MAKING, AND DOCUMENTATION GREATER THAN 75 MINUTES - Past Medical Family Social History Past Med/Fam/Surg Hx: No changes since H&P Allergies: Allergies No Known Drug Allergies Allergy (Verified 03/13/20 15:38) - Review of Systems ROS: No change since H&P - Vital Signs and I&O's Vital Signs: Temperature 97.6 F Pulse Rate [Right Radial] 58 Pulse Rate 58 Respiratory Rate 22 Blood Pressure [Right Arm] 116/68 Blood Pressure 157/74 O2 Sat by Pulse Oximetry 98 Intake and Output: Intake & Output 03/23/20 03/24/20 03/25/20 03/26/20 11:59 11:59 11:59 11:59 Intake Total 1890 / 1890 820 / 820 870 / 870 Balance 1890 / 1890 820 / 820 870 / 870 - Physical Exam Oriented: Person Eyes: Normal Ear: Normal Nose: Normal Throat: Normal Respiratory: Generalized, Diminished Cardiovascular: Normal : Normal Auscultation: Bowel Sounds: Normal Palpation: Normal Tenderness: Normal Skin: Normal, Decreased Turgur Musculoskeletal: Normal Psychiatric: Agitation Mood Description: Calm Affect: Normal Speech Pattern: Unclear, Inappropriate - Laboratory and Diagnostics Result Diagrams: 03/25/20 05:53 03/25/20 05:53 Labs: 03/18/20 11:55 Blood Blood Culture - Final 03/18/20 11:20 Blood Blood Culture - Final Laboratory WBC 9.9 X10^3/uL (3.6-10.0) 03/25/20 05:53 RBC 5.07 X10^6/uL (3.5-5.4) 03/25/20 05:53 Hgb 15.0 g/dL (12.0-16.0) 03/25/20 05:53 Hct 45.4 % (36.0-47.0) 03/25/20 05:53 MCV 89.6 fL (80.0-100.0) 03/25/20 05:53 MCH 29.6 pg (27.0-34.0) 03/25/20 05:53 MCHC 33.0 g/dL (33.0-35.0) 03/25/20 05:53 RDW 13.0 % (11.6-16.5) 03/25/20 05:53 Plt Count 179 X10^3/uL (150.0-450.0) 03/25/20 05:53 Plt Count Comment Adequate (ADEQUATE) 03/23/20 08:36 MPV 9.3 fL (7.4-11.0) 03/25/20 05:53 Neut % (Auto) 82.6 % (42.0-75.0) H 03/25/20 05:53 Lymph % (Auto) 8.1 % (21.0-51.0) L 03/25/20 05:53 [place] % (Auto) 8.9 % (0.0-13.0) 03/25/20 05:53 Eos % (Auto) 0.1 % (0.9-2.9) L 03/25/20 05:53 Baso % (Auto) 0.3 % (0.2-1.0) 03/25/20 05:53 Neut # (Auto) 8.1 x10^3/uL (2.2-4.8) H 03/25/20 05:53 Lymph # (Auto) 0.8 X10^3/uL (1.3-2.9) L 03/25/20 05:53 [place] # (Auto) 0.9 x10^3/uL (0.3-0.8) H 03/25/20 05:53 Eos # (Auto) 0.0 x10^3/uL (0.0-0.2) 03/25/20 05:53 Baso # (Auto) 0.0 X10^3/uL (0.0-0.1) 03/25/20 05:53 Absolute Nucleated RBC 0.0 /100WBC 03/25/20 05:53 Total Counted 100 03/23/20 08:36 Neutrophils % (Manual) 68 % (39-76) 03/23/20 08:36 Band Neutrophils % 2 % (0-10) 03/22/20 04:50 Lymphocytes % (Manual) 16 % (13-43) 03/23/20 08:36 Monocytes % (Manual) 16 % (4-9) H 03/23/20 08:36 Nucleated RBCs 1 03/22/20 04:50 Plt Morphology Comment Normal (NORMAL) 03/23/20 08:36 RBC Morphology Normal (NORMAL) 03/23/20 08:36 PT 14.4 SECONDS (11.8-14.3) 03/18/20 05:00 INR Target Range - 03/18/20 05:00 INR 1.15 (0.8-1.3) 03/18/20 05:00 APTT 128.9 SECONDS (22.9-36.5) H 03/23/20 08:36 PTT Comment - 03/23/20 08:36 D-Dimer 1.50 ug/ml (0.0-0.57) H* 03/25/20 05:53 Sample Site Rr 03/25/20 04:40 ABG pH 7.520 (7.35-7.45) H 03/25/20 04:40 ABG pCO2 60.0 mmHg (35.0-45.0) H* 03/25/20 04:40 ABG pO2 46.0 mmHg (80.0-100.0) L* 03/25/20 04:40 ABG HCO3 49.0 mmol/L (22-26) H* 03/25/20 04:40 ABG O2 Saturation 86.0 % (90-100) L 03/25/20 04:40 ABG Base Excess 22.5 mmol/L (-2.0-2.0) H 03/25/20 04:40 Dylon Test Pos 03/25/20 04:40 A-a Gradient 107.0 mmHg 03/25/20 04:40 FiO2 32.0 03/25/20 04:40 Blood Gas Comments Eladio well cb 03/25/20 04:40 Sodium 140 mmol/L (136-145) 03/25/20 05:53 Corrected Sodium 145 mmol/L (136-145) 03/25/20 05:53 Potassium 4.1 mmol/L (3.5-5.1) 03/25/20 05:53 Chloride 100 mmol/L (98-107) 03/25/20 05:53 Carbon Dioxide 39.6 mmol/L (21-32) H 03/25/20 05:53 BUN 29 mg/dL (7-18) H 03/25/20 05:53 Creatinine 1.13 mg/dL (0.55-1.02) H 03/25/20 05:53 Est GFR (MDRD) Af Amer 60 (>60) 03/25/20 05:53 Est GFR (MDRD) Non-Af 49 (>60) L 03/25/20 05:53 Glucose 327 mg/dL (65-99) H 03/25/20 05:53 POC Glucose (mg/dL) 298 mg/dL (65-99) H 03/25/20 11:13 Calcium 8.5 mg/dL (8.5-10.1) 03/25/20 05:53 Corrected Calcium 10.2 mg/dL (8.5-10.1) H 03/23/20 08:36 Phosphorus 3.7 mg/dL (2.6-4.7) 03/23/20 08:36 Magnesium 2.1 mg/dL (1.7-2.9) 03/23/20 15:37 Ferritin 1590 ng/mL (8-252) H 03/22/20 04:50 Total Bilirubin 0.60 mg/dL (0.2-1.0) 03/23/20 08:36 AST 27 Units/L (15-37) 03/23/20 08:36 ALT 22 Units/L (12-78) 03/23/20 08:36 Alkaline Phosphatase 59 Units/L (46-116) 03/23/20 08:36 C-Reactive Protein 4.10 mg/L (0-3.0) H 03/25/20 05:53 B-Natriuretic Peptide 18.1 pg/mL (0-79) 03/25/20 05:53 Total Protein 6.1 g/dL (6.4-8.2) L 03/23/20 08:36 Albumin 2.4 g/dL (3.4-5.0) L 03/23/20 08:36 Globulin 3.7 g/dL (2.5-4.5) 03/23/20 08:36 Albumin/Globulin Ratio 0.6 Ratio (1.1-2.1) L 03/23/20 08:36 Prealbumin 21.6 mg/dL (18-35.7) 03/21/20 07:10 Triglycerides 79 mg/dL (0-150) 03/23/20 08:36 Specimen Type Catherized urine 03/18/20 16:00 Urine Color Yellow (YELLOW) 03/18/20 16:00 Urine Appearance Clear (CLEAR) 03/18/20 16:00 Urine pH 6.0 (5.0 - 8.0) 03/18/20 16:00 Ur Specific [place] 1.025 (1.000-1.030) 03/18/20 16:00 Urine Protein 1+ (NEGATIVE) 03/18/20 16:00 Urine Glucose (UA) Negative (NEGATIVE) 03/18/20 16:00 Urine Ketones Negative (NEGATIVE) 03/18/20 16:00 Urine Occult Blood Negative (NEGATIVE) 03/18/20 16:00 Urine Nitrite Negative (NEGATIVE) 03/18/20 16:00 Urine Bilirubin Negative (NEGATIVE) 03/18/20 16:00 Urine Urobilinogen Normal (NORMAL) 03/18/20 16:00 Ur Leukocyte Esterase Negative (NEGATIVE) 03/18/20 16:00 Urine RBC None seen /HPF (0-3) 03/18/20 16:00 Urine WBC None seen /HPF (0-5) 03/18/20 16:00 Ur Squamous Epith Cells Negative /HPF (NEGATIVE) 03/18/20 16:00 Urine Bacteria Negative /HPF (NEGATIVE) 03/18/20 16:00 Coarse Granular Casts Rare /HPF (NEGATIVE) 03/18/20 16:00 Ur Culture Indicated? No/not indicated 03/18/20 16:00 Blood Type A POSITIVE 03/17/20 11:00 - Plan (1) Pneumonia due to COVID-19 virus Status: Acute Plan: IS BEING TREATED FOR PNEUMONIA DUE TO COVID-19 AND HYPOXIA. TODAY, SHE IS LYING IN BED WITH EYES CLOSED ON MORNING ROUNDS. SHE OPENS EYES TO VERBAL STIMULI, BUT CONTINUES TO BE DISORIENTED. SHE DOES HAVE A PMH OF DEMENTIA AND ALZHEIMERS. SHE CONTINUES WITH WEAKNESS AND A NON-PRODUCTIVE COUGH THIS MORNING. SHE REMAINS ON NASAL CANNULA AT 3 LITERS/MINUTE. HER SATURATIONS HAVE BEEN 92-100% THIS MORNING AND THROUGHOUT THE NIGHT. ON EXAMINATION, HEART IS REGULAR IN RATE AND RHYTHM. BILATERAL LUNGS ARE NOTED WITH RALES THROUGHOUT. ABDOMEN IS ROUND, SOFT, AND NON-TENDER WITH NORMAL BOWEL SOUNDS NOTED IN ALL QUADRANTS. HER VITALS THIS MORNING ARE: 98.1-74-18-97%-172/78. LABS WERE OBTAINED. ABNORMAL LAB VALUES INCLUDE THE FOLLOWING: HCT 47.1, D-DIMER 2.27, CHLORIDE 97, CARBON DIOXIDE 37.9, CREATININE 1.03, GLUCOSE 332, FERRITIN 1590, CRP 13.60, ALBUMIN 2.5. ABG WAS OBTAINED AND REVEALED: PH 7.490, PC02 65, P02 56, HC03 49.5, 02 SAT 91, BASE EXCESS 22.3, A-A GRADIENT 91, FI02 32. A CHEST XRAY WAS OBTAINED AND REVEALED: Right IJ central line in good position. The cardiac silhouette is stably enlarged. Mediastinal contours appear stable. No significant change in mild bilateral interstitial opacities. No definite pleural effusion or pneumothorax. SHE IS CURRENTLY RECEIVING NS AT 30ML/HR, TPN, REMDESIVIR 100MG IV DAILY, ACTEMRA 400MG IV X 1 DOSE, LEVAQUIN 750MG IV Q4 8, PULMICORT NEB TX BID, ALBUTEROL NEB TX QID, MUCOMYST IN NEBS QID, XANAX 0.5MG PO DAILY PRN, LOPRESSOR 5MG IV Q6H, CLONIDINE 0.3MG TD PATCH, ATORVASTATIN 80MG PO HS, TESSALON PERLES TID, TUSSIONEX 5ML PO Q12H PRN, DIFLUCAN 100MG PO DAILY, IVERMECTIN- PHARMACY TO DOSE, MAGIC MOUTHWASH QID, MILK OF MAG 30ML PO BID, COLACE 100MG PO HS, MELATONIN 10MG PO HS, SOLU-MEDROL 125MG IV Q6H, SINGULAIR 10MG PO HS, PROTONIX 40MG IV BID, THIAMINE 200MG IV BID, ZINC SULFATE 220MG PO DAILY, ZYRTEC 10MG PO HS, VITAMIN D3 DAILY, PEPCID 20MG IV DAILY, HEPARIN DRIP, ATIVAN 0.5MG IV Q4H MAGDALENA, GEODON 10MG IM BID, AND HUMULIN R SLIDING SCALE. WE WILL CONTINUE WITH CURRENT PLAN OF CARE TODAY. OTHERWISE, WE PLAN TO FOLLOW UP WITH AM LABS, CHEST XRAY, ABG, AND CONTINUE TO MONITOR. TIME SPENT ON CLINICAL ASSESSMENT, REVIEWING LABS AND IMAGING, DECISION MAKING, AND DOCUMENTATION GREATER THAN 75 MINUTES (2) Hypoxia Status: Acute
--- NOTE | 2020-03-25 18:15 | PCM.PROG ---
Progress Note - Progress Note for Day of Date of Exam: 03/25/20 - Subjective Subjective: IS BEING TREATED FOR PNEUMONIA DUE TO COVID-19 AND HYPOXIA. TODAY, SHE IS LYING IN BED WITH EYES CLOSED ON MORNING ROUNDS. SHE OPENS EYES TO VERBAL STIMULI, BUT CONTINUES TO BE DISORIENTED. SHE DOES HAVE A PMH OF DEMENTIA AND ALZHEIMERS. SHE CONTINUES WITH A NON-PRODUCTIVE COUGH THIS MORNING. SHE WAS PLACED ON THE BIPAP THIS MORNING. SATURATIONS HAVE BEEN 95-98% THIS MORNING SINCE BEING PLACED ON THE BIPAP. ON EXAMINATION, HEART IS REGULAR IN RATE AND RHYTHM. BILATERAL LUNGS ARE NOTED WITH RALES THROUGHOUT. ABDOMEN IS ROUND, SOFT, AND NON-TENDER WITH NORMAL BOWEL SOUNDS NOTED IN ALL QUADRANTS. HER VITALS THIS MORNING ARE: 97.6-62-20-98%-147/65. LABS WERE OBTAINED. ABNORMAL LAB VALUES INCLUDE THE FOLLOWING: D-DIMER 1.50, CARBON DIOXIDE 39.6, BUN 29, CREATININE 1.13, GLUCOSE 327, CRP 4.10, . ABG WAS OBTAINED AND REVEALED: PH 7.520, PC02 60, P02 46.0, HC03 49.0, 02 SAT 86, BASE EXCESS 22.5, A-A GRADIENT 107, FI02 32. A CHEST XRAY WAS OBTAINED AND REVEALED: No active cardiopulmonary disease. SHE IS CURRENTLY RECEIVING NS AT 75 ML/HR, TPN, LEVAQUIN 750MG IV Q48, PULMICORT NEB TX BID, ALBUTEROL NEB TX QID, MUCOMYST IN NEBS QID, XANAX 0.5MG PO DAILY PRN, LOPRESSOR 5MG IV Q6H, CLONIDINE 0.3MG TD PATCH, ATORVASTATIN 80MG PO HS, TESSALON PERLES TID, TUSSIONEX 5ML PO Q12H PRN, DIFLUCAN 100MG PO DAILY, MAGIC MOUTHWASH QID, MILK OF MAG 30ML PO BID, COLACE 100MG PO HS, MELATONIN 10MG PO HS, SOLU-MEDROL 125MG IV Q6H, SINGULAIR 10MG PO HS, PROTONIX 40MG IV BID, THIAMINE 200MG IV BID, ZINC SULFATE 220MG PO DAILY, ZYRTEC 10MG PO HS, VITAMIN D3 DAILY, PEPCID 20MG IV DAILY, HEPARIN DRIP, ATIVAN 0.5MG IV Q4H MAGDALENA, THE POTASSIUM AND MAGNESIUM PROTOCOLS, GEODON 10MG IM BID, AND HUMULIN R SLIDING SCALE. WE WILL CONTINUE WITH CURRENT PLAN OF CARE TODAY. OTHERWISE, WE PLAN TO FOLLOW UP WITH AM LABS, CHEST XRAY, ABG, AND CONTINUE TO MONITOR. TIME SPENT ON CLINICAL ASSESSMENT, REVIEWING LABS AND IMAGING, DECISION MAKING, AND DOCUMENTATION GREATER THAN 75 MINUTES - Past Medical Family Social History Past Med/Fam/Surg Hx: No changes since H&P Allergies: Allergies No Known Drug Allergies Allergy (Verified 03/13/20 15:38) - Review of Systems ROS: No change since H&P - Vital Signs and I&O's Vital Signs: Temperature 97.6 F Pulse Rate [Right Radial] 74 Pulse Rate 58 Respiratory Rate 22 Blood Pressure [Right Arm] 153/64 Blood Pressure 155/64 O2 Sat by Pulse Oximetry 99 Intake and Output: Intake & Output 03/23/20 03/24/20 03/25/20 03/26/20 11:59 11:59 11:59 11:59 Intake Total 1890 / 1890 820 / 820 870 / 870 0 / 0 Balance 1890 / 1890 820 / 820 870 / 870 0 / 0 - Physical Exam Oriented: Person Eyes: Normal Ear: Normal Nose: Normal Throat: Normal Respiratory: Generalized, Diminished Cardiovascular: Normal : Normal Auscultation: Bowel Sounds: Normal Tenderness: Normal Skin: Normal, Decreased Turgur Musculoskeletal: Normal Psychiatric: Agitation Mood Description: Calm Affect: Normal Speech Pattern: Unclear, Inappropriate - Laboratory and Diagnostics Result Diagrams: 03/25/20 05:53 03/25/20 17:53 Labs: 03/18/20 11:55 Blood Blood Culture - Final 03/18/20 11:20 Blood Blood Culture - Final Laboratory WBC 9.9 X10^3/uL (3.6-10.0) 03/25/20 05:53 RBC 5.07 X10^6/uL (3.5-5.4) 03/25/20 05:53 Hgb 15.0 g/dL (12.0-16.0) 03/25/20 05:53 Hct 45.4 % (36.0-47.0) 03/25/20 05:53 MCV 89.6 fL (80.0-100.0) 03/25/20 05:53 MCH 29.6 pg (27.0-34.0) 03/25/20 05:53 MCHC 33.0 g/dL (33.0-35.0) 03/25/20 05:53 RDW 13.0 % (11.6-16.5) 03/25/20 05:53 Plt Count 179 X10^3/uL (150.0-450.0) 03/25/20 05:53 Plt Count Comment Adequate (ADEQUATE) 03/23/20 08:36 MPV 9.3 fL (7.4-11.0) 03/25/20 05:53 Neut % (Auto) 82.6 % (42.0-75.0) H 03/25/20 05:53 Lymph % (Auto) 8.1 % (21.0-51.0) L 03/25/20 05:53 [place] % (Auto) 8.9 % (0.0-13.0) 03/25/20 05:53 Eos % (Auto) 0.1 % (0.9-2.9) L 03/25/20 05:53 Baso % (Auto) 0.3 % (0.2-1.0) 03/25/20 05:53 Neut # (Auto) 8.1 x10^3/uL (2.2-4.8) H 03/25/20 05:53 Lymph # (Auto) 0.8 X10^3/uL (1.3-2.9) L 03/25/20 05:53 [place] # (Auto) 0.9 x10^3/uL (0.3-0.8) H 03/25/20 05:53 Eos # (Auto) 0.0 x10^3/uL (0.0-0.2) 03/25/20 05:53 Baso # (Auto) 0.0 X10^3/uL (0.0-0.1) 03/25/20 05:53 Absolute Nucleated RBC 0.0 /100WBC 03/25/20 05:53 Total Counted 100 03/23/20 08:36 Neutrophils % (Manual) 68 % (39-76) 03/23/20 08:36 Band Neutrophils % 2 % (0-10) 03/22/20 04:50 Lymphocytes % (Manual) 16 % (13-43) 03/23/20 08:36 Monocytes % (Manual) 16 % (4-9) H 03/23/20 08:36 Nucleated RBCs 1 03/22/20 04:50 Plt Morphology Comment Normal (NORMAL) 03/23/20 08:36 RBC Morphology Normal (NORMAL) 03/23/20 08:36 PT 14.4 SECONDS (11.8-14.3) 03/18/20 05:00 INR Target Range - 03/18/20 05:00 INR 1.15 (0.8-1.3) 03/18/20 05:00 APTT 128.9 SECONDS (22.9-36.5) H 03/23/20 08:36 PTT Comment - 03/23/20 08:36 D-Dimer 1.50 ug/ml (0.0-0.57) H* 03/25/20 05:53 Sample Site Rr 03/25/20 04:40 ABG pH 7.520 (7.35-7.45) H 03/25/20 04:40 ABG pCO2 60.0 mmHg (35.0-45.0) H* 03/25/20 04:40 ABG pO2 46.0 mmHg (80.0-100.0) L* 03/25/20 04:40 ABG HCO3 49.0 mmol/L (22-26) H* 03/25/20 04:40 ABG O2 Saturation 86.0 % (90-100) L 03/25/20 04:40 ABG Base Excess 22.5 mmol/L (-2.0-2.0) H 03/25/20 04:40 Dylon Test Pos 03/25/20 04:40 A-a Gradient 107.0 mmHg 03/25/20 04:40 FiO2 32.0 03/25/20 04:40 Blood Gas Comments Eladio well cb 03/25/20 04:40 Sodium 140 mmol/L (136-145) 03/25/20 05:53 Corrected Sodium 145 mmol/L (136-145) 03/25/20 05:53 Potassium 3.9 mmol/L (3.5-5.1) 03/25/20 17:53 Chloride 100 mmol/L (98-107) 03/25/20 05:53 Carbon Dioxide 39.6 mmol/L (21-32) H 03/25/20 05:53 BUN 29 mg/dL (7-18) H 03/25/20 05:53 Creatinine 1.13 mg/dL (0.55-1.02) H 03/25/20 05:53 Est GFR (MDRD) Af Amer 60 (>60) 03/25/20 05:53 Est GFR (MDRD) Non-Af 49 (>60) L 03/25/20 05:53 Glucose 327 mg/dL (65-99) H 03/25/20 05:53 POC Glucose (mg/dL) 276 mg/dL (65-99) H 03/25/20 17:20 Calcium 8.5 mg/dL (8.5-10.1) 03/25/20 05:53 Corrected Calcium 10.2 mg/dL (8.5-10.1) H 03/23/20 08:36 Phosphorus 3.7 mg/dL (2.6-4.7) 03/23/20 08:36 Magnesium 2.1 mg/dL (1.7-2.9) 03/23/20 15:37 Ferritin 1590 ng/mL (8-252) H 03/22/20 04:50 Total Bilirubin 0.60 mg/dL (0.2-1.0) 03/23/20 08:36 AST 27 Units/L (15-37) 03/23/20 08:36 ALT 22 Units/L (12-78) 03/23/20 08:36 Alkaline Phosphatase 59 Units/L (46-116) 03/23/20 08:36 C-Reactive Protein 4.10 mg/L (0-3.0) H 03/25/20 05:53 B-Natriuretic Peptide 18.1 pg/mL (0-79) 03/25/20 05:53 Total Protein 6.1 g/dL (6.4-8.2) L 03/23/20 08:36 Albumin 2.4 g/dL (3.4-5.0) L 03/23/20 08:36 Globulin 3.7 g/dL (2.5-4.5) 03/23/20 08:36 Albumin/Globulin Ratio 0.6 Ratio (1.1-2.1) L 03/23/20 08:36 Prealbumin 21.6 mg/dL (18-35.7) 03/21/20 07:10 Triglycerides 79 mg/dL (0-150) 03/23/20 08:36 Specimen Type Catherized urine 03/18/20 16:00 Urine Color Yellow (YELLOW) 03/18/20 16:00 Urine Appearance Clear (CLEAR) 03/18/20 16:00 Urine pH 6.0 (5.0 - 8.0) 03/18/20 16:00 Ur Specific [place] 1.025 (1.000-1.030) 03/18/20 16:00 Urine Protein 1+ (NEGATIVE) 03/18/20 16:00 Urine Glucose (UA) Negative (NEGATIVE) 03/18/20 16:00 Urine Ketones Negative (NEGATIVE) 03/18/20 16:00 Urine Occult Blood Negative (NEGATIVE) 03/18/20 16:00 Urine Nitrite Negative (NEGATIVE) 03/18/20 16:00 Urine Bilirubin Negative (NEGATIVE) 03/18/20 16:00 Urine Urobilinogen Normal (NORMAL) 03/18/20 16:00 Ur Leukocyte Esterase Negative (NEGATIVE) 03/18/20 16:00 Urine RBC None seen /HPF (0-3) 03/18/20 16:00 Urine WBC None seen /HPF (0-5) 03/18/20 16:00 Ur Squamous Epith Cells Negative /HPF (NEGATIVE) 03/18/20 16:00 Urine Bacteria Negative /HPF (NEGATIVE) 03/18/20 16:00 Coarse Granular Casts Rare /HPF (NEGATIVE) 03/18/20 16:00 Ur Culture Indicated? No/not indicated 03/18/20 16:00 Blood Type A POSITIVE 03/17/20 11:00 - Plan (1) Pneumonia due to COVID-19 virus Status: Acute Plan: IS BEING TREATED FOR PNEUMONIA DUE TO COVID-19 AND HYPOXIA. TODAY, SHE IS LYING IN BED WITH EYES CLOSED ON MORNING ROUNDS. SHE OPENS EYES TO VERBAL STIMULI, BUT CONTINUES TO BE DISORIENTED. SHE DOES HAVE A PMH OF DEMENTIA AND ALZHEIMERS. SHE CONTINUES WITH WEAKNESS AND A NON-PRODUCTIVE COUGH THIS MORNING. SHE REMAINS ON NASAL CANNULA AT 3 LITERS/MINUTE. HER SATURATIONS HAVE BEEN 92-100% THIS MORNING AND THROUGHOUT THE NIGHT. ON EXAMINATION, HEART IS REGULAR IN RATE AND RHYTHM. BILATERAL LUNGS ARE NOTED WITH RALES THROUGHOUT. ABDOMEN IS ROUND, SOFT, AND NON-TENDER WITH NORMAL BOWEL SOUNDS NOTED IN ALL QUADRANTS. HER VITALS THIS MORNING ARE: 98.1-74-18-97%-172/78. LABS WERE OBTAINED. ABNORMAL LAB VALUES INCLUDE THE FOLLOWING: HCT 47.1, D-DIMER 2.27, CHLORIDE 97, CARBON DIOXIDE 37.9, CREATININE 1.03, GLUCOSE 332, FERRITIN 1590, CRP 13.60, ALBUMIN 2.5. ABG WAS OBTAINED AND REVEALED: PH 7.490, PC02 65, P02 56, HC03 49.5, 02 SAT 91, BASE EXCESS 22.3, A-A GRADIENT 91, FI02 32. A CHEST XRAY WAS OBTAINED AND REVEALED: Right IJ central line in good position. The cardiac silhouette is stably enlarged. Mediastinal contours appear stable. No significant change in mild bilateral interstitial opacities. No definite pleural effusion or pneumothorax. SHE IS CURRENTLY RECEIVING NS AT 30ML/HR, TPN, REMDESIVIR 100MG IV DAILY, ACTEMRA 400MG IV X 1 DOSE, LEVAQUIN 750MG IV Q48, PULMICORT NEB TX BID, ALBUTEROL NEB TX QID, MUCOMYST IN NEBS QID, XANAX 0.5MG PO DAILY PRN, LOPRESSOR 5MG IV Q6H, CLONIDINE 0.3MG TD PATCH, ATORVASTATIN 80MG PO HS, TESSALON PERLES TID, TUSSIONEX 5ML PO Q12H PRN, DIFLUCAN 100MG PO DAILY, IVERMECTIN- PHARMACY TO DOSE, MAGIC MOUTHWASH QID, MILK OF MAG 30ML PO BID, COLACE 100MG PO HS, MELATONIN 10MG PO HS, SOLU-MEDROL 125MG IV Q6H, SINGULAIR 10MG PO HS, PROTONIX 40MG IV BID, THIAMINE 200MG IV BID, ZINC SULFATE 220MG PO DAILY, ZYRTEC 10MG PO HS, VITAMIN D3 DAILY, PEPCID 20MG IV DAILY, HEPARIN DRIP, ATIVAN 0.5MG IV Q4H MAGDALENA, GEODON 10MG IM BID, AND HUMULIN R SLIDING SCALE. WE WILL CONTINUE WITH CURRENT PLAN OF CARE TODAY. OTHERWISE, WE PLAN TO FOLLOW UP WITH AM LABS, CHEST XRAY, ABG, AND CONTINUE TO MONITOR. TIME SPENT ON CLINICAL ASSESSMENT, REVIEWING LABS AND IMAGING, DECISION MAKING, AND DOCUMENTATION GREATER THAN 75 MINUTES (2) Hypoxia Status: Acute
[2020-03-25] MEDS: SNACK - Diabetic Appropriate PO SCH (21:17)
[2020-03-25] MEDS: LIPITOR TAB 80 MG PO SCH (21:19)
[2020-03-25] MEDS: COLACE CAP 100 MG PO SCH (21:19)
[2020-03-25] MEDS: SINGULAIR TAB 10 MG PO SCH (21:19)
[2020-03-25] MEDS: MELATONIN PO SCH (21:19)
[2020-03-25] MEDS: LIPOSYN III 20% 100ML 100 ML IV SCH (21:44)
[2020-03-26] MEDS: LOPRESSOR INJ 5 MG AMP IVP SCH ×5 (01:34→21:21)
[2020-03-26] MEDS: ATIVAN INJ 2 MG VIAL IVP SCH ×5 (01:34→17:00)
[2020-03-26] MEDS: HumuLIN R SUBCUT PRN ×2 (01:50→17:31)
[2020-03-26] MEDS: TRACE ELEMENTS IV SCH ×15 (03:06→17:14)
[2020-03-26] MEDS: MVI IV SCH ×15 (03:06→17:14)
[2020-03-26] MEDS: [UNRECOGNIZED DRUG - OTHER] IV SCH ×15 (03:06→17:14)
[2020-03-26] MEDS: CLINIMIX IV SCH ×15 (03:06→17:14)
[2020-03-26] MEDS: SOLU-Medrol 125 MG VIAL IVP SCH ×4 (03:07→21:20)
[2020-03-26] MEDS: NS 1000 ML 1,000 ML IV SCH ×2 (03:07→21:04)
--- NOTE | 2020-03-26 05:24 | RAD ---
PROCEDURE: Chest X-ray 1 View .HISTORY: Short of breath.TECHNIQUE: AP view .COMPARISON: 03/25/2020.TECHNICAL QUALITY: Satisfactory .FINDINGS:Normal appearing cardiomediastinal silhouette.Normal central vascularity.No pulmonary consolidation, masses, pleural fluid, or pneumothorax.IMPRESSION:No active cardiopulmonary disease.Electronically signed by: Rigoberto Orozco (Mar 26, 2020 05:22:47)
[2020-03-26] MEDS: TESSALON PERLES PO SCH ×3 (05:36→21:21)
[2020-03-26 06:25] LABS: MAGNESIUM 2.5 mg/dL (1.7-2.9)
[2020-03-26 06:30] LABS: BLOOD UREA NITROGEN 26 mg/dL (7-18); CALCIUM 7.7 mg/dL (8.5-10.1); CARBON DIOXIDE 39.4 mmol/L (21-32); CHLORIDE 102 mmol/L (98-107); COR NA(FOR HYPERGLY) 144 mmol/L (136-145); CREATININE 0.94 mg/dL (0.55-1.02); SODIUM 141 mmol/L (136-145); eGFR NON BLACK RACES > 60 (>60)
[2020-03-26 06:49] LABS: ABG BASE EXCESS 19.6 mmol/L (-2.0-2.0)
[2020-03-26 06:50] LABS: ABG ALLEN TEST POS
[2020-03-26] MEDS: MUCOMYST (RESPIRATORY USE ONLY) NEB SCH ×2 (09:25→22:05)
[2020-03-26] MEDS: PULMICORT NEB TX 0.5 MG NEB SCH ×2 (09:25→22:05)
[2020-03-26] MEDS: ACCUNEB 1.25 MG NEBULE NEB SCH ×4 (09:25→22:05)
[2020-03-26] MEDS: PEPCID 20 MG IV PREMIX* 10 MG/25 ML BAG IV SCH (10:29)
[2020-03-26] MEDS: ZyrTEC TAB 10 MG PO SCH (10:29)
[2020-03-26] MEDS: DIFLUCAN PO SCH (10:29)
[2020-03-26] MEDS: ZINC SULFATE PO SCH (10:29)
[2020-03-26] MEDS: K-DUR TAB 20 MEQ PO SCH ×2 (10:30→20:50)
[2020-03-26] MEDS: VITAMIN D3 125 mcg (5,000 UNITS) PO SCH (10:30)
[2020-03-26] MEDS: PROTONIX INJ 40 MG VIAL IVP SCH ×2 (10:31→20:49)
[2020-03-26] MEDS: LOVENOX INJ 60 MG SYR SC SCH ×2 (10:37→21:19)
[2020-03-26] MEDS: MILK OF MAGNESIA PO SCH ×2 (10:38→20:49)
[2020-03-26] MEDS: LOVENOX INJ 30 MG SYR SC SCH (10:38)
[2020-03-26] MEDS ORDERED: GEODON INJ IM SCH (11:00)
[2020-03-26] MEDS: GEODON INJ IM SCH (11:18)
[2020-03-26] MEDS: COLACE CAP 100 MG PO SCH (20:49)
[2020-03-26] MEDS: LIPITOR TAB 80 MG PO SCH (20:49)
[2020-03-26] MEDS: SINGULAIR TAB 10 MG PO SCH (20:49)
[2020-03-26] MEDS: MELATONIN PO SCH (20:49)
[2020-03-26] MEDS: SNACK - Diabetic Appropriate PO SCH (20:50)
--- NOTE | 2020-03-26 21:46 | PCM.PROG ---
Progress Note - Progress Note for Day of Date of Exam: 03/26/20 - Subjective Subjective: IS BEING TREATED FOR PNEUMONIA DUE TO COVID-19 AND HYPOXIA. TODAY, SHE IS LYING IN BED WITH EYES CLOSED ON MORNING ROUNDS. SHE OPENS EYES TO VERBAL STIMULI. SHE CONTINUES TO BE DISORIENTED. DOES HAVE A PMH OF DEMENTIA AND ALZHEIMERS. SHE CONTINUES WITH A NON-PRODUCTIVE COUGH THIS MORNING. SHE IS CURRENTLY ON NASAL CANNULA AT 4LPM TODAY. HER SATURATIONS HAVE BEEN 91-98% ON NASAL CANNULA. ON EXAMINATION, HEART IS REGULAR IN RATE AND RHYTHM. BILATERAL LUNGS ARE NOTED WITH DIMINISHED LUNG SOUNDS THROUGHOUT. ABDOMEN IS ROUND, SOFT, AND NON-TENDER WITH NORMAL BOWEL SOUNDS NOTED IN ALL QUADRANTS. HER VITALS THIS MORNING ARE: 97.9-76-18-99%-175/85. LABS WERE OBTAINED. ABNORMAL LAB VALUES INCLUDE THE FOLLOWING: D-DIMER 1.29, CARBON DIOXIDE 39.4, BUN 26, GLUCOSE 245, CALCIUM 7.7, PHOSPHORUS 2.0. ABG WAS OBTAINED AND REVEALED: PH 7.500, PC02 59, P02 67, HC03 46.0, 02 SAT 95, A-A GRADIENT 116, FI02 36. A CHEST XRAY WAS OBTAINED AND REVEALED: Normal appearing cardiomediastinal silhouette. Normal central vascularity. No pulmonary consolidation, masses, pleural fluid, or pneumothorax. SHE IS CURRENTLY RECEIVING NS AT 75 ML/HR, TPN, LEVAQUIN 750MG IV Q48, PULMICORT NEB TX BID, ALBUTEROL NEB TX QID, MUCOMYST IN NEBS QID, XANAX 0.5MG PO DAILY PRN, LOPRESSOR 5MG IV Q6H, CLONIDINE 0.3MG TD PATCH, ATORVASTATIN 80MG PO HS, TESSALON PERLES TID, TUSSIONEX 5ML PO Q12H PRN, DIFLUCAN 100MG PO DAILY, MAGIC MOUTHWASH QID, MILK OF MAG 30ML PO BID, COLACE 100MG PO HS, MELATONIN 10MG PO HS, SOLU-MEDROL 125MG IV Q6H, SINGULAIR 10MG PO HS, PROTONIX 40MG IV BID, THIAMINE 200MG IV BID, ZINC SULFATE 220MG PO DAILY, ZYRTEC 10MG PO HS, VITAMIN D3 DAILY, PEPCID 20MG IV DAILY, LOVENOX 60MG SC BID, ATIVAN 0.5MG IV Q4H MAGDALENA, THE POTASSIUM AND MAGNESIUM PROTOCOLS, GEODON 10MG IM BID, AND HUMULIN R SLIDING SCALE. TODAY, WE WILL DISCONTINUE THE GEODON AND START ZYPREXA 2.5MG PO HS. WE WILL DECREASE THE ATIVAN TO 0.5MG PO BID. OTHERWISE, WE WILL CONTINUE WITH CURRENT PLAN OF CARE TODAY. FAMILY REQUEST THAT PATIENT BE CONSIDERED FOR PLACEMENT AT [facility]. THEY REPORT THAT THEY ARE UNABLE TO PROVIDE AROUND THE CLOCK CARE FOR PATIENT AT HOME. WE WILL DISCUSS THIS WITH CASE MANAGEMENT. WE PLAN TO FOLLOW UP WITH AM LABS, CHEST XRAY, ABG, AND CONTINUE TO MONITOR. TIME SPENT ON CLINICAL ASSESSMENT, REVIEWING LABS AND IMAGING, DECISION MAKING, AND DOCUMENTATION GREATER THAN 75 MINUTES - Past Medical Family Social History Past Med/Fam/Surg Hx: No changes since H&P Allergies: Allergies No Known Drug Allergies Allergy (Verified 03/13/20 15:38) - Review of Systems ROS: No change since H&P - Vital Signs and I&O's Vital Signs: Temperature 97.4 F Pulse Rate [Right Radial] 85 Pulse Rate 85 Respiratory Rate 20 Blood Pressure [Right Arm] 151/72 Blood Pressure 155/70 O2 Sat by Pulse Oximetry 90 Intake and Output: Intake & Output 03/24/20 03/25/20 03/26/20 03/27/20 11:59 11:59 11:59 11:59 Intake Total 820 / 820 870 / 870 2570 / 2570 1061 / 1061 Balance 820 / 820 870 / 870 2570 / 2570 1061 / 1061 - Physical Exam Oriented: Person Eyes: Normal Ear: Normal Nose: Normal Throat: Normal Respiratory: Generalized, Diminished Cardiovascular: Normal : Normal Auscultation: Bowel Sounds: Normal Palpation: Normal Tenderness: Normal Skin: Normal, Decreased Turgur Musculoskeletal: Normal Psychiatric: Agitation Mood Description: Calm Affect: Normal Speech Pattern: Unclear, Inappropriate - Laboratory and Diagnostics Result Diagrams: 03/25/20 05:53 03/26/20 05:50 Labs: 03/18/20 11:55 Blood Blood Culture - Final 03/18/20 11:20 Blood Blood Culture - Final Laboratory WBC 9.9 X10^3/uL (3.6-10.0) 03/25/20 05:53 RBC 5.07 X10^6/uL (3.5-5.4) 03/25/20 05:53 Hgb 15.0 g/dL (12.0-16.0) 03/25/20 05:53 Hct 45.4 % (36.0-47.0) 03/25/20 05:53 MCV 89.6 fL (80.0-100.0) 03/25/20 05:53 MCH 29.6 pg (27.0-34.0) 03/25/20 05:53 MCHC 33.0 g/dL (33.0-35.0) 03/25/20 05:53 RDW 13.0 % (11.6-16.5) 03/25/20 05:53 Plt Count 179 X10^3/uL (150.0-450.0) 03/25/20 05:53 Plt Count Comment Adequate (ADEQUATE) 03/23/20 08:36 MPV 9.3 fL (7.4-11.0) 03/25/20 05:53 Neut % (Auto) 82.6 % (42.0-75.0) H 03/25/20 05:53 Lymph % (Auto) 8.1 % (21.0-51.0) L 03/25/20 05:53 [place] % (Auto) 8.9 % (0.0-13.0) 03/25/20 05:53 Eos % (Auto) 0.1 % (0.9-2.9) L 03/25/20 05:53 Baso % (Auto) 0.3 % (0.2-1.0) 03/25/20 05:53 Neut # (Auto) 8.1 x10^3/uL (2.2-4.8) H 03/25/20 05:53 Lymph # (Auto) 0.8 X10^3/uL (1.3-2.9) L 03/25/20 05:53 [place] # (Auto) 0.9 x10^3/uL (0.3-0.8) H 03/25/20 05:53 Eos # (Auto) 0.0 x10^3/uL (0.0-0.2) 03/25/20 05:53 Baso # (Auto) 0.0 X10^3/uL (0.0-0.1) 03/25/20 05:53 Absolute Nucleated RBC 0.0 /100WBC 03/25/20 05:53 Total Counted 100 03/23/20 08:36 Neutrophils % (Manual) 68 % (39-76) 03/23/20 08:36 Band Neutrophils % 2 % (0-10) 03/22/20 04:50 Lymphocytes % (Manual) 16 % (13-43) 03/23/20 08:36 Monocytes % (Manual) 16 % (4-9) H 03/23/20 08:36 Nucleated RBCs 1 03/22/20 04:50 Plt Morphology Comment Normal (NORMAL) 03/23/20 08:36 RBC Morphology Normal (NORMAL) 03/23/20 08:36 PT 14.4 SECONDS (11.8-14.3) 03/18/20 05:00 INR Target Range - 03/18/20 05:00 INR 1.15 (0.8-1.3) 03/18/20 05:00 APTT 128.9 SECONDS (22.9-36.5) H 03/23/20 08:36 PTT Comment - 03/23/20 08:36 D-Dimer 1.29 ug/ml (0.0-0.57) H* 03/26/20 05:50 Sample Site Rr 03/26/20 06:45 ABG pH 7.500 (7.35-7.45) H 03/26/20 06:45 ABG pCO2 59.0 mmHg (35.0-45.0) H* 03/26/20 06:45 ABG pO2 67.0 mmHg (80.0-100.0) L 03/26/20 06:45 ABG HCO3 46.0 mmol/L (22-26) H* 03/26/20 06:45 ABG O2 Saturation 95.0 % (90-100) 03/26/20 06:45 ABG Base Excess 19.6 mmol/L (-2.0-2.0) H 03/26/20 06:45 Dylon Test Pos 03/26/20 06:45 A-a Gradient 116.0 mmHg 03/26/20 06:45 FiO2 36.0 03/26/20 06:45 Blood Gas Comments Eladio well, kh 03/26/20 06:45 Sodium 141 mmol/L (136-145) 03/26/20 05:50 Corrected Sodium 144 mmol/L (136-145) 03/26/20 05:50 Potassium 4.0 mmol/L (3.5-5.1) 03/26/20 05:50 Chloride 102 mmol/L (98-107) 03/26/20 05:50 Carbon Dioxide 39.4 mmol/L (21-32) H 03/26/20 05:50 BUN 26 mg/dL (7-18) H 03/26/20 05:50 Creatinine 0.94 mg/dL (0.55-1.02) 03/26/20 05:50 Est GFR (MDRD) Af Amer > 60 (>60) 03/26/20 05:50 Est GFR (MDRD) Non-Af > 60 (>60) 03/26/20 05:50 Glucose 245 mg/dL (65-99) H 03/26/20 05:50 POC Glucose (mg/dL) 302 mg/dL (65-99) H 03/26/20 17:20 Calcium 7.7 mg/dL (8.5-10.1) L 03/26/20 05:50 Corrected Calcium 10.2 mg/dL (8.5-10.1) H 03/23/20 08:36 Phosphorus 2.0 mg/dL (2.6-4.7) L 03/26/20 05:50 Magnesium 2.5 mg/dL (1.7-2.9) 03/26/20 05:50 Ferritin 1590 ng/mL (8-252) H 03/22/20 04:50 Total Bilirubin 0.60 mg/dL (0.2-1.0) 03/23/20 08:36 AST 27 Units/L (15-37) 03/23/20 08:36 ALT 22 Units/L (12-78) 03/23/20 08:36 Alkaline Phosphatase 59 Units/L (46-116) 03/23/20 08:36 C-Reactive Protein 2.40 mg/L (0-3.0) 03/26/20 05:50 B-Natriuretic Peptide 30.1 pg/mL (0-79) 03/26/20 05:50 Total Protein 6.1 g/dL (6.4-8.2) L 03/23/20 08:36 Albumin 2.4 g/dL (3.4-5.0) L 03/23/20 08:36 Globulin 3.7 g/dL (2.5-4.5) 03/23/20 08:36 Albumin/Globulin Ratio 0.6 Ratio (1.1-2.1) L 03/23/20 08:36 Prealbumin 21.6 mg/dL (18-35.7) 03/21/20 07:10 Triglycerides 62 mg/dL (0-150) 03/26/20 05:50 Specimen Type Catherized urine 03/18/20 16:00 Urine Color Yellow (YELLOW) 03/18/20 16:00 Urine Appearance Clear (CLEAR) 03/18/20 16:00 Urine pH 6.0 (5.0 - 8.0) 03/18/20 16:00 Ur Specific [place] 1.025 (1.000-1.030) 03/18/20 16:00 Urine Protein 1+ (NEGATIVE) 03/18/20 16:00 Urine Glucose (UA) Negative (NEGATIVE) 03/18/20 16:00 Urine Ketones Negative (NEGATIVE) 03/18/20 16:00 Urine Occult Blood Negative (NEGATIVE) 03/18/20 16:00 Urine Nitrite Negative (NEGATIVE) 03/18/20 16:00 Urine Bilirubin Negative (NEGATIVE) 03/18/20 16:00 Urine Urobilinogen Normal (NORMAL) 03/18/20 16:00 Ur Leukocyte Esterase Negative (NEGATIVE) 03/18/20 16:00 Urine RBC None seen /HPF (0-3) 03/18/20 16:00 Urine WBC None seen /HPF (0-5) 03/18/20 16:00 Ur Squamous Epith Cells Negative /HPF (NEGATIVE) 03/18/20 16:00 Urine Bacteria Negative /HPF (NEGATIVE) 03/18/20 16:00 Coarse Granular Casts Rare /HPF (NEGATIVE) 03/18/20 16:00 Ur Culture Indicated? No/not indicated 03/18/20 16:00 Blood Type A POSITIVE 03/17/20 11:00 - Plan (1) Pneumonia due to COVID-19 virus Status: Acute Plan: NS AT 75 ML/HR, TPN, LEVAQUIN 750MG IV Q48, PULMICORT NEB TX BID, ALBUTEROL NEB TX QID, MUCOMYST IN NEBS QID, XANAX 0.5MG PO DAILY PRN, LOPRESSOR 5MG IV Q6H, CLONIDINE 0.3MG TD PATCH, ATORVASTATIN 80MG PO HS, TESSALON PERLES TID, TUSSIONEX 5ML PO Q12H PRN, DIFLUCAN 100MG PO DAILY, MAGIC MOUTHWASH QID, MILK OF MAG 30ML PO BID, COLACE 100MG PO HS, MELATONIN 10MG PO HS, SOLU-MEDROL 125MG IV Q6H, SINGULAIR 10MG PO HS, PROTONIX 40MG IV BID, THIAMINE 200MG IV BID, ZINC SULFATE 220MG PO DAILY, ZYRTEC 10MG PO HS, VITAMIN D3 DAILY, PEPCID 20MG IV DAILY, LOVENOX 60MG SC BID, ATIVAN 0.5MG IV BID MAGDALENA, THE POTASSIUM AND MAGNESIUM PROTOCOLS, ZYPREXA 2.5MG HS, AND HUMULIN R SLIDING SCALE (2) Hypoxia Status: Acute
[2020-03-27] MEDS: HumuLIN R SUBCUT PRN ×2 (02:23→10:29)
[2020-03-27] MEDS: SOLU-Medrol 125 MG VIAL IVP SCH ×5 (02:27→21:01)
[2020-03-27] MEDS: CLINIMIX IV SCH ×10 (03:15→18:00)
[2020-03-27] MEDS: MVI IV SCH ×10 (03:15→18:00)
[2020-03-27] MEDS: [UNRECOGNIZED DRUG - OTHER] IV SCH ×10 (03:15→18:00)
[2020-03-27] MEDS: TRACE ELEMENTS IV SCH ×10 (03:15→18:00)
[2020-03-27 04:51] LABS: ABG BASE EXCESS 17.4 mmol/L (-2.0-2.0)
[2020-03-27 04:53] LABS: ABG ALLEN TEST POSS; ABG HCO3 42.6 mmol/L (22-26)
[2020-03-27] MEDS: LOPRESSOR INJ 5 MG AMP IVP SCH ×4 (04:58→23:32)
[2020-03-27] MEDS: TESSALON PERLES PO SCH ×3 (04:59→22:01)
[2020-03-27 06:30] LABS: BASOPHILS % (AUTO) 0.4 % (0.2-1.0); HEMATOCRIT 38.2 % (36.0-47.0); HEMOGLOBIN 12.4 g/dL (12.0-16.0); LYMPHOCYTES # (AUTO) 0.6 X10^3/uL (1.3-2.9); LYMPHOCYTES % (AUTO) 5.1 % (21.0-51.0); MEAN CORPUSCULAR HEMOGLOBIN 28.9 pg (27.0-34.0); MEAN CORPUSCULAR HGB CONC 32.5 g/dL (33.0-35.0); MEAN CORPUSCULAR VOLUME 89.1 fL (80.0-100.0); MEAN PLATELET VOLUME 9.6 fL (7.4-11.0); MONOCYTES # (AUTO) 1.3 x10^3/uL (0.3-0.8); MONOCYTES % (AUTO) 10.3 % (0.0-13.0); NEUTROPHILS # (AUTO) 10.5 x10^3/uL (2.2-4.8); NEUTROPHILS % (AUTO) 84.2 % (42.0-75.0); PLATELET COUNT 155 X10^3/uL (150.0-450.0); RED BLOOD COUNT 4.29 X10^6/uL (3.5-5.4); RED CELL DISTRIBUTION WIDTH 12.8 % (11.6-16.5); WHITE BLOOD COUNT 12.4 X10^3/uL (3.6-10.0)
[2020-03-27 06:34] LABS: PREALBUMIN 38.6 mg/dL (18-35.7)
[2020-03-27 06:58] LABS: ALANINE AMINOTRANSFERASE 29 Units/L (12-78); ALBUMIN 2.3 g/dL (3.4-5.0); ALKALINE PHOSPHATASE 44 Units/L (46-116); ASPARTATE AMINO TRANSFERASE 32 Units/L (15-37); BLOOD UREA NITROGEN 34 mg/dL (7-18); CALCIUM 8.1 mg/dL (8.5-10.1); CARBON DIOXIDE 35.3 mmol/L (21-32); CHLORIDE 102 mmol/L (98-107); COR CA(FOR HYPOALB) 9.5 mg/dL (8.5-10.1); COR NA(FOR HYPERGLY) 144 mmol/L (136-145); CREATININE 1.03 mg/dL (0.55-1.02); SODIUM 140 mmol/L (136-145); TOTAL PROTEIN 5.2 g/dL (6.4-8.2); eGFR NON BLACK RACES 55 (>60)
--- NOTE | 2020-03-27 07:39 | RAD ---
HISTORYSOBSTUDYCHEST, 1 VIEWCOMPARISONOne-view chest March 26, 2020FINDINGSThe trachea is midline. The cardiac silhouette is unremarkable . The lungs are clear without focal infiltrate or effusion. The bony thorax is unremarkable.IMPRESSIONNo acute cardiopulmonary and no change from prior chest film of March 26, 2020.Electronically signed by: MIGNON LEGER (Mar 27, 2020 07:37:37)
[2020-03-27 07:57] LABS: BAND NEUTROPHILS % 3 % (0-10); PLATELET MORPHOLOGY COMMENT NORMAL (NORMAL)
[2020-03-27] MEDS: PEPCID 20 MG IV PREMIX* 10 MG/25 ML BAG IV SCH (08:20)
[2020-03-27] MEDS: LOVENOX INJ 60 MG SYR SC SCH ×2 (08:20→21:29)
[2020-03-27] MEDS: ATIVAN INJ 2 MG VIAL IVP SCH ×2 (08:20→21:28)
[2020-03-27] MEDS: DIFLUCAN PO SCH (08:30)
[2020-03-27] MEDS: PROTONIX INJ 40 MG VIAL IVP SCH ×3 (08:30→21:50)
[2020-03-27] MEDS: MUCOMYST (RESPIRATORY USE ONLY) NEB SCH ×2 (09:40→21:40)
[2020-03-27] MEDS: PULMICORT NEB TX 0.5 MG NEB SCH ×2 (09:40→21:40)
[2020-03-27] MEDS: ACCUNEB 1.25 MG NEBULE NEB SCH ×4 (09:40→21:40)
[2020-03-27] MEDS: ZyrTEC TAB 10 MG PO SCH (09:45)
[2020-03-27] MEDS: VITAMIN D3 125 mcg (5,000 UNITS) PO SCH (09:45)
[2020-03-27] MEDS: K-DUR TAB 20 MEQ PO SCH ×2 (09:45→22:02)
[2020-03-27] MEDS: LEVAQUIN PREMIX IV 750 MG 750 MG/150 ML BAG IV SCH (09:45)
[2020-03-27] MEDS: MILK OF MAGNESIA PO SCH ×2 (10:31→21:52)
[2020-03-27] MEDS: ZINC SULFATE PO SCH (10:31)
--- NOTE | 2020-03-27 13:14 | PCM.PROG ---
Progress Note - Progress Note for Day of Date of Exam: 03/27/20 - Subjective Subjective: IS BEING TREATED FOR PNEUMONIA DUE TO COVID-19 AND HYPOXIA. TODAY, SHE IS ALERT, SITTING ON THE SIDE OF THE BED ON MORNING ROUNDS. SHE CONTINUES TO BE DISORIENTED, BUT IS PLEASANT AT THIS TIME. SHE DOES HAVE A PMH OF DEMENTIA AND ALZHEIMERS. SHE CONTINUES WITH WEAKNESS THIS MORNING. SHE IS CURRENTLY ON NASAL CANNULA AT 2-3LPM TODAY. HER SATURATIONS HAVE BEEN 93-100% ON NASAL CANNULA THIS MORNING AND THROUGHOUT THE NIGHT. ON EXAMINATION, HEART IS REGULAR IN RATE AND RHYTHM. BILATERAL LUNGS ARE NOTED WITH DIMINISHED LUNG SOUNDS THROUGHOUT. ABDOMEN IS ROUND, SOFT, AND NON-TENDER WITH NORMAL BOWEL SOUNDS NOTED IN ALL QUADRANTS. HER VITALS THIS MORNING ARE: 97.7-85-20-90%-141/72. LABS WERE OBTAINED. ABNORMAL LAB VALUES INCLUDE THE FOLLOWING: WBC 12.4, D-DIMER 1.31, CARBON DIOXIDE 35.3, BUN 34, CREATININE 1.03, GLUCOSE 249, CALCIUM 8.1, ALK PHOS 44, TOTAL PROTEIN 5.2, ALBUMIN 2.3. ABG WAS OBTAINED AND REVEALED: PH 7.530, PC02 51, P02 57, HC03 42.6, BASE EXCESS 17.4, A-A GRADIENT 50, FI02 24. A CHEST XRAY WAS OBTAINED AND REVEALED: The trachea is midline. The cardiac silhouette is unremarkable . The lungs are clear without focal infiltrate or effusion. The bony thorax is unremarkable. SHE IS CURRENTLY RECEIVING NS AT 75 ML/HR, TPN, LEVAQUIN 750MG IV Q48, PULMICORT NEB TX BID, ALBUTEROL NEB TX QID, MUCOMYST IN NEBS QID, LOPRESSOR 5MG IV Q6H, CLONIDINE 0.3MG TD PATCH, ATORVASTATIN 80MG PO HS, TESSALON PERLES TID, TUSSIONEX 5ML PO Q12H PRN, DIFLUCAN 100MG PO DAILY, MAGIC MOUTHWASH QID, MILK OF MAG 30ML PO BID, COLACE 100MG PO HS, MELATONIN 10MG PO HS, SOLU-MEDROL 125MG IV Q6H, SINGULAIR 10MG PO HS, PROTONIX 40MG IV BID, THIAMINE 200MG IV BID, ZINC SULFATE 220MG PO DAILY, ZYRTEC 10MG PO HS, VITAMIN D3 DAILY, PEPCID 20MG IV DAILY, LOVENOX 60MG SC BID, ATIVAN 0.5MG BID MAGDALENA, THE POTASSIUM AND MAGNESIUM PROTOCOLS, AND HUMULIN R SLIDING SCALE. TODAY, WE WILL INCREASE THE ZYPREXA TO 2.5MG PO BID. OTHERWISE, WE WILL CONTINUE WITH CURRENT PLAN OF CARE TODAY. FAMILY REQUEST THAT PATIENT BE CONSIDERED FOR PLACEMENT AT [facility]. WE ARE WORKING ON FINDING A FACILITY WITH AN OPEN BED. WE PLAN TO FOLLOW UP WITH AM LABS, CHEST XRAY, ABG, AND CONTINUE TO MONITOR. TIME SPENT ON CLINICAL ASSESSMENT, REVIEWING LABS AND IMAGING, DECISION MAKING, AND DOCUMENTATION GREATER THAN 75 MINUTES - Past Medical Family Social History Past Med/Fam/Surg Hx: No changes since H&P Allergies: Allergies No Known Drug Allergies Allergy (Verified 03/13/20 15:38) - Review of Systems ROS: No change since H&P - Vital Signs and I&O's Vital Signs: Temperature 97.7 F Pulse Rate [Right Radial] 85 Pulse Rate 83 Respiratory Rate 20 Blood Pressure [Right Arm] 141/72 Blood Pressure 154/91 O2 Sat by Pulse Oximetry 95 Intake and Output: Intake & Output 03/25/20 03/26/20 03/27/20 03/28/20 11:59 11:59 11:59 11:59 Intake Total 870 / 870 2570 / 2570 1236 / 1236 Output Total Balance 870 / 870 2570 / 2570 1235 / 1235 - Physical Exam Oriented: Person Eyes: Normal Ear: Normal Nose: Normal Throat: Normal Respiratory: Generalized, Diminished Cardiovascular: Normal : Normal Auscultation: Bowel Sounds: Normal Palpation: Normal Tenderness: Normal Skin: Normal, Decreased Turgur Musculoskeletal: Normal Psychiatric: Agitation Mood Description: Calm Affect: Normal Speech Pattern: Unclear, Inappropriate - Laboratory and Diagnostics Result Diagrams: 03/27/20 05:28 03/27/20 05:28 Labs: 03/18/20 11:55 Blood Blood Culture - Final 03/18/20 11:20 Blood Blood Culture - Final Laboratory WBC 12.4 X10^3/uL (3.6-10.0) H 03/27/20 05:28 RBC 4.29 X10^6/uL (3.5-5.4) 03/27/20 05:28 Hgb 12.4 g/dL (12.0-16.0) D 03/27/20 05:28 Hct 38.2 % (36.0-47.0) 03/27/20 05:28 MCV 89.1 fL (80.0-100.0) 03/27/20 05:28 MCH 28.9 pg (27.0-34.0) 03/27/20 05:28 MCHC 32.5 g/dL (33.0-35.0) L 03/27/20 05:28 RDW 12.8 % (11.6-16.5) 03/27/20 05:28 Plt Count 155 X10^3/uL (150.0-450.0) 03/27/20 05:28 Plt Count Comment Adequate (ADEQUATE) 03/27/20 05:28 MPV 9.6 fL (7.4-11.0) 03/27/20 05:28 Neut % (Auto) 84.2 % (42.0-75.0) H 03/27/20 05:28 Lymph % (Auto) 5.1 % (21.0-51.0) L 03/27/20 05:28 [place] % (Auto) 10.3 % (0.0-13.0) 03/27/20 05:28 Eos % (Auto) 0.0 % (0.9-2.9) L 03/27/20 05:28 Baso % (Auto) 0.4 % (0.2-1.0) 03/27/20 05:28 Neut # (Auto) 10.5 x10^3/uL (2.2-4.8) H 03/27/20 05:28 Lymph # (Auto) 0.6 X10^3/uL (1.3-2.9) L 03/27/20 05:28 [place] # (Auto) 1.3 x10^3/uL (0.3-0.8) H 03/27/20 05:28 Eos # (Auto) 0.0 x10^3/uL (0.0-0.2) 03/27/20 05:28 Baso # (Auto) 0.0 X10^3/uL (0.0-0.1) 03/27/20 05:28 Absolute Nucleated RBC 0.0 /100WBC 03/27/20 05:28 Total Counted 100 03/27/20 05:28 Neutrophils % (Manual) 83 % (39-76) H 03/27/20 05:28 Band Neutrophils % 3 % (0-10) 03/27/20 05:28 Lymphocytes % (Manual) 5 % (13-43) L 03/27/20 05:28 Monocytes % (Manual) 9 % (4-9) 03/27/20 05:28 Nucleated RBCs 1 03/22/20 04:50 Plt Morphology Comment Normal (NORMAL) 03/27/20 05:28 RBC Morphology Normal (NORMAL) 03/27/20 05:28 PT 14.4 SECONDS (11.8-14.3) 03/18/20 05:00 INR Target Range - 03/18/20 05:00 INR 1.15 (0.8-1.3) 03/18/20 05:00 APTT 128.9 SECONDS (22.9-36.5) H 03/23/20 08:36 PTT Comment - 03/23/20 08:36 D-Dimer 1.31 ug/ml (0.0-0.57) H* 03/27/20 05:28 Sample Site R rad 03/27/20 04:45 ABG pH 7.530 (7.35-7.45) H 03/27/20 04:45 ABG pCO2 51.0 mmHg (35.0-45.0) H* 03/27/20 04:45 ABG pO2 57.0 mmHg (80.0-100.0) L 03/27/20 04:45 ABG HCO3 42.6 mmol/L (22-26) H* 03/27/20 04:45 ABG O2 Saturation 92.0 % (90-100) 03/27/20 04:45 ABG Base Excess 17.4 mmol/L (-2.0-2.0) H 03/27/20 04:45 Dylon Test Poss 03/27/20 04:45 A-a Gradient 50.0 mmHg 03/27/20 04:45 FiO2 24.0 03/27/20 04:45 Blood Gas Comments Eladio well kb 03/27/20 04:45 Sodium 140 mmol/L (136-145) 03/27/20 05:28 Corrected Sodium 144 mmol/L (136-145) 03/27/20 05:28 Potassium 4.1 mmol/L (3.5-5.1) 03/27/20 05:28 Chloride 102 mmol/L (98-107) 03/27/20 05:28 Carbon Dioxide 35.3 mmol/L (21-32) H 03/27/20 05:28 BUN 34 mg/dL (7-18) H 03/27/20 05:28 Creatinine 1.03 mg/dL (0.55-1.02) H 03/27/20 05:28 Est GFR (MDRD) Af Amer > 60 (>60) 03/27/20 05:28 Est GFR (MDRD) Non-Af 55 (>60) L 03/27/20 05:28 Glucose 249 mg/dL (65-99) H 03/27/20 05:28 POC Glucose (mg/dL) 306 mg/dL (65-99) H 03/27/20 10:24 Calcium 8.1 mg/dL (8.5-10.1) L 03/27/20 05:28 Corrected Calcium 9.5 mg/dL (8.5-10.1) 03/27/20 05:28 Phosphorus 2.0 mg/dL (2.6-4.7) L 03/26/20 05:50 Magnesium 2.5 mg/dL (1.7-2.9) 03/26/20 05:50 Ferritin 1590 ng/mL (8-252) H 03/22/20 04:50 Total Bilirubin 0.60 mg/dL (0.2-1.0) 03/27/20 05:28 AST 32 Units/L (15-37) 03/27/20 05:28 ALT 29 Units/L (12-78) 03/27/20 05:28 Alkaline Phosphatase 44 Units/L (46-116) L 03/27/20 05:28 C-Reactive Protein 1.00 mg/L (0-3.0) 03/27/20 05:28 B-Natriuretic Peptide 16.9 pg/mL (0-79) 03/27/20 05:28 Total Protein 5.2 g/dL (6.4-8.2) L 03/27/20 05:28 Albumin 2.3 g/dL (3.4-5.0) L 03/27/20 05:28 Globulin 2.9 g/dL (2.5-4.5) 03/27/20 05:28 Albumin/Globulin Ratio 0.8 Ratio (1.1-2.1) L 03/27/20 05:28 Prealbumin 38.6 mg/dL (18-35.7) H 03/27/20 05:28 Triglycerides 62 mg/dL (0-150) 03/26/20 05:50 Specimen Type Catherized urine 03/18/20 16:00 Urine Color Yellow (YELLOW) 03/18/20 16:00 Urine Appearance Clear (CLEAR) 03/18/20 16:00 Urine pH 6.0 (5.0 - 8.0) 03/18/20 16:00 Ur Specific [place] 1.025 (1.000-1.030) 03/18/20 16:00 Urine Protein 1+ (NEGATIVE) 03/18/20 16:00 Urine Glucose (UA) Negative (NEGATIVE) 03/18/20 16:00 Urine Ketones Negative (NEGATIVE) 03/18/20 16:00 Urine Occult Blood Negative (NEGATIVE) 03/18/20 16:00 Urine Nitrite Negative (NEGATIVE) 03/18/20 16:00 Urine Bilirubin Negative (NEGATIVE) 03/18/20 16:00 Urine Urobilinogen Normal (NORMAL) 03/18/20 16:00 Ur Leukocyte Esterase Negative (NEGATIVE) 03/18/20 16:00 Urine RBC None seen /HPF (0-3) 03/18/20 16:00 Urine WBC None seen /HPF (0-5) 03/18/20 16:00 Ur Squamous Epith Cells Negative /HPF (NEGATIVE) 03/18/20 16:00 Urine Bacteria Negative /HPF (NEGATIVE) 03/18/20 16:00 Coarse Granular Casts Rare /HPF (NEGATIVE) 03/18/20 16:00 Ur Culture Indicated? No/not indicated 03/18/20 16:00 Blood Type A POSITIVE 03/17/20 11:00 - Plan (1) Pneumonia due to COVID-19 virus Status: Acute Plan: NS AT 75 ML/HR, TPN, LEVAQUIN 750MG IV Q48, PULMICORT NEB TX BID, ALBUTEROL NEB TX QID, MUCOMYST IN NEBS QID, LOPRESSOR 5MG IV Q6H, CLONIDINE 0.3MG TD PATCH, ATORVASTATIN 80MG PO HS, TESSALON PERLES TID, TUSSIONEX 5ML PO Q12H PRN, DIFLUCAN 100MG PO DAILY, MAGIC MOUTHWASH QID, MILK OF MAG 30ML PO BID, COLACE 100MG PO HS, MELATONIN 10MG PO HS, SOLU-MEDROL 125MG IV Q6H, SINGULAIR 10MG PO HS, PROTONIX 40MG IV BID, THIAMINE 200MG IV BID, ZINC SULFATE 220MG PO DAILY, ZYRTEC 10MG PO HS, VITAMIN D3 DAILY, PEPCID 20MG IV DAILY, LOVENOX 60MG SC BID, ATIVAN 0.5MG IV BID MAGDALENA, THE POTASSIUM AND MAGNESIUM PROTOCOLS, ZYPREXA 2.5MG BID, AND HUMULIN R SLIDING SCALE (2) Hypoxia Status: Acute
[2020-03-27] MEDS: NS 1000 ML 1,000 ML IV SCH ×2 (18:16→22:02)
[2020-03-27] MEDS: SNACK - Diabetic Appropriate PO SCH (19:57)
[2020-03-27] MEDS: COLACE CAP 100 MG PO SCH (21:50)
[2020-03-27] MEDS: SINGULAIR TAB 10 MG PO SCH (21:50)
[2020-03-27] MEDS: MELATONIN PO SCH (21:51)
[2020-03-27] MEDS: LIPITOR TAB 80 MG PO SCH (21:51)
[2020-03-28] MEDS: SOLU-Medrol 125 MG VIAL IVP SCH ×3 (02:16→15:52)
[2020-03-28 04:24] LABS: ABG BASE EXCESS 15.7 mmol/L (-2.0-2.0)
[2020-03-28 04:25] LABS: ABG HCO3 40.2 mmol/L (22-26)
[2020-03-28 04:26] LABS: ABG ALLEN TEST POSS
[2020-03-28] MEDS: TESSALON PERLES PO SCH ×3 (05:38→22:34)
[2020-03-28] MEDS: LOPRESSOR INJ 5 MG AMP IVP SCH ×3 (05:44→16:39)
[2020-03-28 06:41] LABS: BASOPHILS % (AUTO) 0.2 % (0.2-1.0); HEMATOCRIT 27.7 % (36.0-47.0); LYMPHOCYTES # (AUTO) 0.8 X10^3/uL (1.3-2.9); LYMPHOCYTES % (AUTO) 6.5 % (21.0-51.0); MEAN CORPUSCULAR HGB CONC 32.9 g/dL (33.0-35.0); MEAN CORPUSCULAR VOLUME 88.2 fL (80.0-100.0); MEAN PLATELET VOLUME 9.4 fL (7.4-11.0); MONOCYTES # (AUTO) 1.2 x10^3/uL (0.3-0.8); MONOCYTES % (AUTO) 10.3 % (0.0-13.0); NEUTROPHILS # (AUTO) 9.6 x10^3/uL (2.2-4.8); PLATELET COUNT 116 X10^3/uL (150.0-450.0); RED BLOOD COUNT 3.15 X10^6/uL (3.5-5.4); RED CELL DISTRIBUTION WIDTH 12.6 % (11.6-16.5); WHITE BLOOD COUNT 11.6 X10^3/uL (3.6-10.0)
[2020-03-28 06:47] LABS: ALANINE AMINOTRANSFERASE 38 Units/L (12-78); ALBUMIN 2.1 g/dL (3.4-5.0); ALKALINE PHOSPHATASE 36 Units/L (46-116); ASPARTATE AMINO TRANSFERASE 42 Units/L (15-37); BLOOD UREA NITROGEN 39 mg/dL (7-18); CARBON DIOXIDE 35.5 mmol/L (21-32); CHLORIDE 101 mmol/L (98-107); COR CA(FOR HYPOALB) 9.5 mg/dL (8.5-10.1); COR NA(FOR HYPERGLY) 142 mmol/L (136-145); CREATININE 1.02 mg/dL (0.55-1.02); SODIUM 139 mmol/L (136-145); TOTAL PROTEIN 4.7 g/dL (6.4-8.2); eGFR NON BLACK RACES 56 (>60)
[2020-03-28 07:34] LABS: HEMOGLOBIN 9.1 g/dL (12.0-16.0)
[2020-03-28] MEDS: MVI IV SCH ×5 (07:42)
[2020-03-28] MEDS: [UNRECOGNIZED DRUG - OTHER] IV SCH ×5 (07:42)
[2020-03-28] MEDS: CLINIMIX IV SCH ×5 (07:42)
[2020-03-28] MEDS: TRACE ELEMENTS IV SCH ×5 (07:42)
--- NOTE | 2020-03-28 08:11 | RAD ---
HISTORYSOBSTUDYCHEST, 1 [id number]/03/2021.TECHNIQUEAP view of the chestFINDINGSCardiac and mediastinal contours are within normal limits. Low lung volumes. Suspect left base airspace disease. No definite pleural effusion or pneumothorax. Soft tissue attenuation limits evaluation.IMPRESSIONLeft base airspace disease suspected. This may represent pneumonia.Electronically signed by: Alf Smith (Mar 28, 2020 08:09:16)
[2020-03-28] MEDS: MUCOMYST (RESPIRATORY USE ONLY) NEB SCH ×2 (09:05→20:20)
[2020-03-28] MEDS: PULMICORT NEB TX 0.5 MG NEB SCH ×2 (09:05→20:20)
[2020-03-28] MEDS: ACCUNEB 1.25 MG NEBULE NEB SCH ×4 (09:05→20:20)
[2020-03-28] MEDS: MILK OF MAGNESIA PO SCH ×2 (09:25→21:37)
[2020-03-28] MEDS: DIFLUCAN PO SCH (09:25)
[2020-03-28] MEDS: ATIVAN INJ 2 MG VIAL IVP SCH (09:26)
[2020-03-28] MEDS: LOVENOX INJ 60 MG SYR SC SCH ×2 (09:26→21:33)
[2020-03-28] MEDS: K-DUR TAB 20 MEQ PO SCH ×2 (09:26→22:06)
[2020-03-28] MEDS: ZINC SULFATE PO SCH (09:33)
[2020-03-28] MEDS: PEPCID 20 MG IV PREMIX* 10 MG/25 ML BAG IV SCH (09:33)
[2020-03-28] MEDS: PROTONIX INJ 40 MG VIAL IVP SCH (09:34)
[2020-03-28] MEDS: VITAMIN D3 125 mcg (5,000 UNITS) PO SCH (09:34)
[2020-03-28] MEDS: ZyrTEC TAB 10 MG PO SCH (09:35)
[2020-03-28] MEDS: HumuLIN R SUBCUT PRN ×2 (10:00→17:26)
[2020-03-28] MEDS: CATAPRES-TTS-3 TD SCH (12:29)
--- NOTE | 2020-03-28 12:53 | PCM.PROG ---
Progress Note - Progress Note for Day of Date of Exam: 03/28/20 - Subjective Subjective: IS BEING TREATED FOR PNEUMONIA DUE TO COVID-19 AND HYPOXIA. TODAY, SHE IS LYING IN BED ON MORNING ROUNDS. SHE AWAKENS AND RESPONDS TO VERBAL STIMULI. SHE CONTINUES TO BE DISORIENTED, BUT IS PLEASANT AT THIS TIME. SHE DOES HAVE A PMH OF DEMENTIA AND ALZHEIMERS. SHE CONTINUES WITH WEAKNESS THIS MORNING. SHE IS CURRENTLY ON NASAL CANNULA AT 2-3LPM TODAY. HER SATURATIONS HAVE BEEN 92-96% ON NASAL CANNULA THIS MORNING AND THROUGHOUT THE NIGHT. ON EXAMINATION, HEART IS REGULAR IN RATE AND RHYTHM. BILATERAL LUNGS ARE NOTED WITH DIMINISHED LUNG SOUNDS THROUGHOUT. ABDOMEN IS ROUND, SOFT, AND NON-TENDER WITH NORMAL BOWEL SOUNDS NOTED IN ALL QUADRANTS. HER VITALS THIS MORNING ARE: 98.4- 78-18-94%-122/62. LABS WERE OBTAINED. ABNORMAL LAB VALUES INCLUDE THE FOLLOWING: WBC 11.6, RBC 3.15, HGB 9.1, HCT 27.7, PLT COUNT 116, D-DIMER 1.03, CARBON DIOXIDE 35.5, BUN 39, GLUCOSE 227, CALCIUM 8.0, AST 42, ALK PHOS 36, TOTAL PROTEIN 4.7, ALBUMIN 2.1. ABG WAS OBTAINED AND REVEALED: PH 7.540, PC02 47, P02 63, HC03 40.2, 02 SAT 94, BASE EXCESS 15.7, A-A GRADIENT 49, FI02 24. A CHEST XRAY WAS OBTAINED AND REVEALED: Cardiac and mediastinal contours are within normal limits. Low lung volumes. Suspect left base airspace disease. No definite pleural effusion or pneumothorax. Soft tissue attenuation limits evaluation. SHE IS CURRENTLY RECEIVING NS AT 75 ML/HR, TPN, LEVAQUIN 750MG IV Q48, PULMICORT NEB TX BID, ALBUTEROL NEB TX QID, MUCOMYST IN NEBS QID, LOPRESSOR 5MG IV Q6H, CLONIDINE 0.3MG TD PATCH, ATORVASTATIN 80MG PO HS, TESSALON PERLES TID, TUSSIONEX 5ML PO Q12H PRN, DIFLUCAN 100MG PO DAILY, MAGIC MOUTHWASH QID, MILK OF MAG 30ML PO BID, COLACE 100MG PO HS, MELATONIN 10MG PO HS, SOLU-MEDROL 125MG IV Q6H, SINGULAIR 10MG PO HS, PROTONIX 40MG IV BID, THIAMINE 200MG IV BID, ZINC SULFATE 220MG PO DAILY, ZYRTEC 10MG PO HS, VITAMIN D3 DAILY, PEPCID 20MG IV DAILY, LOVENOX 60MG SC BID, ATIVAN 0.5MG BID MAGDALENA, ZYPREXA 2.5MG PO BID. THE POTASSIUM AND MAGNESIUM PROTOCOLS, AND HUMULIN R SLIDING SCALE. WE WILL CONTINUE WITH CURRENT PLAN OF CARE TODAY. FAMILY HAS DECIDED THAT PATIENT WILL GO HOME WITH A FAMILY MEMBER AFTER DISCHARGE. IF ALL REMAINS WELL, WE WILL PLAN FOR DISCHARGE TOMORROW. OTHERWISE, WE PLAN TO FOLLOW UP WITH AM LABS, CHEST XRAY, ABG, AND CONTINUE TO MONITOR. TIME SPENT ON CLINICAL ASSESSMENT, REVIEWING LABS AND IMAGING, DECISION MAKING, AND DOCUMENTATION GREATER THAN 75 MINUTES - Past Medical Family Social History Past Med/Fam/Surg Hx: No changes since H&P Allergies: Allergies No Known Drug Allergies Allergy (Verified 03/13/20 15:38) - Review of Systems ROS: No change since H&P - Vital Signs and I&O's Vital Signs: Temperature 98.4 F Pulse Rate [Right Radial] 78 Pulse Rate 73 Respiratory Rate 18 Blood Pressure [Right Arm] 122/62 Blood Pressure 102/58 O2 Sat by Pulse Oximetry 94 Intake and Output: Intake & Output 03/26/20 03/27/20 03/28/20 03/29/20 11:59 11:59 11:59 11:59 Intake Total 2570 / 2570 1236 / 1236 3262 / 3262 Output Total Balance 2570 / 2570 1235 / 1235 3262 / 3262 - Physical Exam Oriented: Person Eyes: Normal Ear: Normal Nose: Normal Throat: Normal Respiratory: Generalized, Diminished Cardiovascular: Normal : Normal Auscultation: Bowel Sounds: Normal Tenderness: Normal Skin: Normal, Decreased Turgur Musculoskeletal: Normal Psychiatric: Agitation Mood Description: Calm Affect: Normal Speech Pattern: Clear, Appropriate - Laboratory and Diagnostics Result Diagrams: 03/28/20 07:10 03/28/20 05:40 Labs: 03/18/20 11:55 Blood Blood Culture - Final 03/18/20 11:20 Blood Blood Culture - Final Laboratory WBC 11.6 X10^3/uL (3.6-10.0) H 03/28/20 07:10 RBC 3.15 X10^6/uL (3.5-5.4) L 03/28/20 07:10 Hgb 9.1 g/dL (12.0-16.0) L D 03/28/20 07:10 Hct 27.7 % (36.0-47.0) L 03/28/20 07:10 MCV 88.2 fL (80.0-100.0) 03/28/20 07:10 MCH 29.0 pg (27.0-34.0) 03/28/20 07:10 MCHC 32.9 g/dL (33.0-35.0) L 03/28/20 07:10 RDW 12.6 % (11.6-16.5) 03/28/20 07:10 Plt Count 116 X10^3/uL (150.0-450.0) L 03/28/20 07:10 Plt Count Comment Adequate (ADEQUATE) 03/27/20 05:28 MPV 9.4 fL (7.4-11.0) 03/28/20 07:10 Neut % (Auto) 83.0 % (42.0-75.0) H 03/28/20 07:10 Lymph % (Auto) 6.5 % (21.0-51.0) L 03/28/20 07:10 [place] % (Auto) 10.3 % (0.0-13.0) 03/28/20 07:10 Eos % (Auto) 0.0 % (0.9-2.9) L 03/28/20 07:10 Baso % (Auto) 0.2 % (0.2-1.0) 03/28/20 07:10 Neut # (Auto) 9.6 x10^3/uL (2.2-4.8) H 03/28/20 07:10 Lymph # (Auto) 0.8 X10^3/uL (1.3-2.9) L 03/28/20 07:10 [place] # (Auto) 1.2 x10^3/uL (0.3-0.8) H 03/28/20 07:10 Eos # (Auto) 0.0 x10^3/uL (0.0-0.2) 03/28/20 07:10 Baso # (Auto) 0.0 X10^3/uL (0.0-0.1) 03/28/20 07:10 Absolute Nucleated RBC 0.0 /100WBC 03/28/20 07:10 Total Counted 100 03/27/20 05:28 Neutrophils % (Manual) 83 % (39-76) H 03/27/20 05:28 Band Neutrophils % 3 % (0-10) 03/27/20 05:28 Lymphocytes % (Manual) 5 % (13-43) L 03/27/20 05:28 Monocytes % (Manual) 9 % (4-9) 03/27/20 05:28 Nucleated RBCs 1 03/22/20 04:50 Plt Morphology Comment Normal (NORMAL) 03/27/20 05:28 RBC Morphology Normal (NORMAL) 03/27/20 05:28 PT 14.4 SECONDS (11.8-14.3) 03/18/20 05:00 INR Target Range - 03/18/20 05:00 INR 1.15 (0.8-1.3) 03/18/20 05:00 APTT 128.9 SECONDS (22.9-36.5) H 03/23/20 08:36 PTT Comment - 03/23/20 08:36 D-Dimer 1.03 ug/ml (0.0-0.57) H* 03/28/20 05:40 Sample Site R rad 03/28/20 04:15 ABG pH 7.540 (7.35-7.45) H 03/28/20 04:15 ABG pCO2 47.0 mmHg (35.0-45.0) H 03/28/20 04:15 ABG pO2 63.0 mmHg (80.0-100.0) L 03/28/20 04:15 ABG HCO3 40.2 mmol/L (22-26) H* 03/28/20 04:15 ABG O2 Saturation 94.0 % (90-100) 03/28/20 04:15 ABG Base Excess 15.7 mmol/L (-2.0-2.0) H 03/28/20 04:15 Dylon Test Poss 03/28/20 04:15 A-a Gradient 49.0 mmHg 03/28/20 04:15 FiO2 24.0 03/28/20 04:15 Blood Gas Comments Eladio well kb 03/28/20 04:15 Sodium 139 mmol/L (136-145) 03/28/20 05:40 Corrected Sodium 142 mmol/L (136-145) 03/28/20 05:40 Potassium 4.4 mmol/L (3.5-5.1) 03/28/20 05:40 Chloride 101 mmol/L (98-107) 03/28/20 05:40 Carbon Dioxide 35.5 mmol/L (21-32) H 03/28/20 05:40 BUN 39 mg/dL (7-18) H 03/28/20 05:40 Creatinine 1.02 mg/dL (0.55-1.02) 03/28/20 05:40 Est GFR (MDRD) Af Amer > 60 (>60) 03/28/20 05:40 Est GFR (MDRD) Non-Af 56 (>60) L 03/28/20 05:40 Glucose 227 mg/dL (65-99) H 03/28/20 05:40 POC Glucose (mg/dL) 227 mg/dL (65-99) H 03/28/20 09:51 Calcium 8.0 mg/dL (8.5-10.1) L 03/28/20 05:40 Corrected Calcium 9.5 mg/dL (8.5-10.1) 03/28/20 05:40 Phosphorus 2.0 mg/dL (2.6-4.7) L 03/26/20 05:50 Magnesium 2.5 mg/dL (1.7-2.9) 03/26/20 05:50 Ferritin 1590 ng/mL (8-252) H 03/22/20 04:50 Total Bilirubin 0.50 mg/dL (0.2-1.0) 03/28/20 05:40 AST 42 Units/L (15-37) H 03/28/20 05:40 ALT 38 Units/L (12-78) 03/28/20 05:40 Alkaline Phosphatase 36 Units/L (46-116) L 03/28/20 05:40 C-Reactive Protein < 0.50 mg/L (0-3.0) 03/28/20 05:40 B-Natriuretic Peptide 17.5 pg/mL (0-79) 03/28/20 05:40 Total Protein 4.7 g/dL (6.4-8.2) L 03/28/20 05:40 Albumin 2.1 g/dL (3.4-5.0) L 03/28/20 05:40 Globulin 2.6 g/dL (2.5-4.5) 03/28/20 05:40 Albumin/Globulin Ratio 0.8 Ratio (1.1-2.1) L 03/28/20 05:40 Prealbumin 38.6 mg/dL (18-35.7) H 03/27/20 05:28 Triglycerides 62 mg/dL (0-150) 03/26/20 05:50 Specimen Type Catherized urine 03/18/20 16:00 Urine Color Yellow (YELLOW) 03/18/20 16:00 Urine Appearance Clear (CLEAR) 03/18/20 16:00 Urine pH 6.0 (5.0 - 8.0) 03/18/20 16:00 Ur Specific [place] 1.025 (1.000-1.030) 03/18/20 16:00 Urine Protein 1+ (NEGATIVE) 03/18/20 16:00 Urine Glucose (UA) Negative (NEGATIVE) 03/18/20 16:00 Urine Ketones Negative (NEGATIVE) 03/18/20 16:00 Urine Occult Blood Negative (NEGATIVE) 03/18/20 16:00 Urine Nitrite Negative (NEGATIVE) 03/18/20 16:00 Urine Bilirubin Negative (NEGATIVE) 03/18/20 16:00 Urine Urobilinogen Normal (NORMAL) 03/18/20 16:00 Ur Leukocyte Esterase Negative (NEGATIVE) 03/18/20 16:00 Urine RBC None seen /HPF (0-3) 03/18/20 16:00 Urine WBC None seen /HPF (0-5) 03/18/20 16:00 Ur Squamous Epith Cells Negative /HPF (NEGATIVE) 03/18/20 16:00 Urine Bacteria Negative /HPF (NEGATIVE) 03/18/20 16:00 Coarse Granular Casts Rare /HPF (NEGATIVE) 03/18/20 16:00 Ur Culture Indicated? No/not indicated 03/18/20 16:00 Blood Type A POSITIVE 03/17/20 11:00 - Plan (1) Pneumonia due to COVID-19 virus Status: Acute Plan: NS AT 75 ML/HR, TPN, LEVAQUIN 750MG IV Q48, PULMICORT NEB TX BID, ALBUTEROL NEB TX QID, MUCOMYST IN NEBS QID, LOPRESSOR 5MG IV Q6H, CLONIDINE 0.3MG TD PATCH, ATORVASTATIN 80MG PO HS, TESSALON PERLES TID, TUSSIONEX 5ML PO Q12H PRN, DIFLUCAN 100MG PO DAILY, MAGIC MOUTHWASH QID, MILK OF MAG 30ML PO BID, COLACE 100MG PO HS, MELATONIN 10MG PO HS, SOLU-MEDROL 125MG IV Q6H, SINGULAIR 10MG PO HS, PROTONIX 40MG IV BID, THIAMINE 200MG IV BID, ZINC SULFATE 220MG PO DAILY, ZYRTEC 10MG PO HS, VITAMIN D3 DAILY, PEPCID 20MG IV DAILY, LOVENOX 60MG SC BID, ATIVAN 0.5MG IV BID MAGDALENA, THE POTASSIUM AND MAGNESIUM PROTOCOLS, ZYPREXA 2.5MG BID, AND HUMULIN R SLIDING SCALE (2) Hypoxia Status: Acute
[2020-03-28] MEDS: NS 1000 ML 1,000 ML IV SCH (13:55)
[2020-03-28] MEDS ORDERED: TRACE ELEMENTS IV SCH ×5 (15:00)
[2020-03-28] MEDS ORDERED: [UNRECOGNIZED DRUG - OTHER] IV SCH ×5 (15:00)
[2020-03-28] MEDS ORDERED: CLINIMIX IV SCH ×5 (15:00)
[2020-03-28] MEDS ORDERED: MVI IV SCH ×5 (15:00)
[2020-03-28] MEDS ORDERED: HumuLIN R ONE (17:24)
[2020-03-28] MEDS: SNACK - Diabetic Appropriate PO SCH ×2 (19:23→19:50)
[2020-03-28] MEDS: LIPITOR TAB 80 MG PO SCH (21:37)
[2020-03-28] MEDS: SINGULAIR TAB 10 MG PO SCH (21:37)
[2020-03-28] MEDS: MELATONIN PO SCH (21:37)
[2020-03-28] MEDS: PREDNISONE TAB 10 MG PO SCH (21:37)
[2020-03-28] MEDS: COLACE CAP 100 MG PO SCH (21:38)
[2020-03-28] MEDS: ATIVAN TAB 0.5 MG PO SCH (21:38)
[2020-03-28] MEDS: LOPRESSOR TAB 25 MG PO SCH (22:05)
[2020-03-29] MEDS: NS 1000 ML 1,000 ML IV SCH ×2 (04:10→15:25)
[2020-03-29 05:13] LABS: ABG ALLEN TEST POS; ABG BASE EXCESS 12.3 mmol/L (-2.0-2.0); ABG HCO3 35.9 mmol/L (22-26)
[2020-03-29 07:23] LABS: BASOPHILS % (AUTO) 0.2 % (0.2-1.0); HEMATOCRIT 24.7 % (36.0-47.0); HEMOGLOBIN 7.9 g/dL (12.0-16.0); LYMPHOCYTES # (AUTO) 1.1 X10^3/uL (1.3-2.9); LYMPHOCYTES % (AUTO) 7.5 % (21.0-51.0); MEAN CORPUSCULAR HEMOGLOBIN 28.6 pg (27.0-34.0); MEAN CORPUSCULAR HGB CONC 32.1 g/dL (33.0-35.0); MEAN CORPUSCULAR VOLUME 89.3 fL (80.0-100.0); MEAN PLATELET VOLUME 10.9 fL (7.4-11.0); MONOCYTES # (AUTO) 1.4 x10^3/uL (0.3-0.8); MONOCYTES % (AUTO) 9.6 % (0.0-13.0); NEUTROPHILS # (AUTO) 12.2 x10^3/uL (2.2-4.8); NEUTROPHILS % (AUTO) 82.7 % (42.0-75.0); PLATELET COUNT 119 X10^3/uL (150.0-450.0); RED BLOOD COUNT 2.76 X10^6/uL (3.5-5.4); RED CELL DISTRIBUTION WIDTH 12.5 % (11.6-16.5); WHITE BLOOD COUNT 14.8 X10^3/uL (3.6-10.0)
[2020-03-29 07:37] LABS: PREALBUMIN 41.4 mg/dL (18-35.7)
--- NOTE | 2020-03-29 07:42 | RAD ---
HISTORYSOBSTUDYCHEST, 1 VIEWCOMPARISONOne day prior.TECHNIQUEAP chest, 2 imagesFINDINGSThe cardiac and mediastinal contours appear stable. No significant change in patchy left medial base opacity. Left costophrenic sulcus is not completely in the field of view. No discernible pneumothorax.IMPRESSIONNo significant change.Electronically signed by: Alf Smith (Mar 29, 2020 07:41:28)
[2020-03-29 07:56] LABS: ALBUMIN 2.4 g/dL (3.4-5.0); CALCIUM 8.1 mg/dL (8.5-10.1); COR CA(FOR HYPOALB) 9.4 mg/dL (8.5-10.1); CREATININE 1.17 mg/dL (0.55-1.02); TOTAL PROTEIN 4.7 g/dL (6.4-8.2)
[2020-03-29 08:34] LABS: BAND NEUTROPHILS % 2 % (0-10); PLATELET MORPHOLOGY COMMENT NORMAL (NORMAL)
[2020-03-29] MEDS ORDERED: LEVAQUIN TAB 500 MG PO ONE (08:34)
[2020-03-29] MEDS: PULMICORT NEB TX 0.5 MG NEB SCH ×3 (08:40→22:04)
[2020-03-29] MEDS: ACCUNEB 1.25 MG NEBULE NEB SCH ×5 (08:40→22:03)
[2020-03-29] MEDS: MUCOMYST (RESPIRATORY USE ONLY) NEB SCH ×3 (08:40→22:03)
[2020-03-29] MEDS: ZINC SULFATE PO SCH (08:55)
[2020-03-29] MEDS: ZyrTEC TAB 10 MG PO SCH (08:55)
[2020-03-29] MEDS: ATIVAN TAB 0.5 MG PO SCH ×2 (08:56→20:53)
[2020-03-29] MEDS: TESSALON PERLES PO SCH ×3 (08:57→21:25)
[2020-03-29] MEDS: PROTONIX TAB 40 MG PO SCH (08:58)
[2020-03-29] MEDS: VITAMIN D3 125 mcg (5,000 UNITS) PO SCH (08:58)
[2020-03-29] MEDS: DIFLUCAN PO SCH (08:59)
[2020-03-29] MEDS: K-DUR TAB 20 MEQ PO SCH ×2 (08:59→21:25)
[2020-03-29] MEDS: LOPRESSOR TAB 25 MG PO SCH ×3 (09:00→20:55)
[2020-03-29] MEDS: MILK OF MAGNESIA PO SCH ×2 (09:01→20:53)
[2020-03-29] MEDS: PEPCID TAB 20 MG PO SCH (09:02)
[2020-03-29] MEDS: PREDNISONE TAB 10 MG PO SCH ×2 (09:02→20:53)
[2020-03-29] MEDS: LOVENOX INJ 60 MG SYR SC SCH ×2 (09:30→21:30)
[2020-03-29] MEDS ORDERED: LASIX IVP ONE (10:19)
[2020-03-29] MEDS ORDERED: XYLOCAINE 1 % (PLAIN) ONE (13:12)
[2020-03-29] MEDS ORDERED: PROCRIT or EPOGEN VIAL 10,000 UNITS SC ONE (13:37)
[2020-03-29] MEDS: HEMOCYTE-PLUS PO SCH (14:34)
[2020-03-29] MEDS: HumuLIN R SUBCUT PRN (16:48)
[2020-03-29] MEDS: SNACK - Diabetic Appropriate PO SCH ×2 (19:25→21:21)
[2020-03-29] MEDS: SINGULAIR TAB 10 MG PO SCH (20:53)
[2020-03-29] MEDS: MELATONIN PO SCH (20:53)
[2020-03-29] MEDS: LIPITOR TAB 80 MG PO SCH (20:56)
[2020-03-29] MEDS: COLACE CAP 100 MG PO SCH (20:57)
[2020-03-30] MEDS: HumuLIN R SUBCUT PRN ×4 (01:03→20:48)
[2020-03-30 06:52] LABS: BASOPHILS % (AUTO) 0.2 % (0.2-1.0); EOSINOPHILS % (AUTO) 0.1 % (0.9-2.9); LYMPHOCYTES # (AUTO) 1.4 X10^3/uL (1.3-2.9); MEAN CORPUSCULAR HEMOGLOBIN 28.8 pg (27.0-34.0); MEAN CORPUSCULAR HGB CONC 32.8 g/dL (33.0-35.0); MEAN PLATELET VOLUME 9.9 fL (7.4-11.0); NEUTROPHILS # (AUTO) 6.7 x10^3/uL (2.2-4.8); NEUTROPHILS % (AUTO) 73.7 % (42.0-75.0); PLATELET COUNT 95 X10^3/uL (150.0-450.0); RED BLOOD COUNT 2.19 X10^6/uL (3.5-5.4); RED CELL DISTRIBUTION WIDTH 12.5 % (11.6-16.5); WHITE BLOOD COUNT 9.1 X10^3/uL (3.6-10.0)
[2020-03-30 07:07] LABS: HEMOGLOBIN 6.3 g/dL (12.0-16.0)
[2020-03-30 07:08] LABS: HEMATOCRIT 19.2 % (36.0-47.0)
[2020-03-30] MEDS: TESSALON PERLES PO SCH ×3 (07:14→22:01)
[2020-03-30 07:47] LABS: ALANINE AMINOTRANSFERASE 39 Units/L (12-78); ALKALINE PHOSPHATASE 38 Units/L (46-116); ASPARTATE AMINO TRANSFERASE 24 Units/L (15-37); BLOOD UREA NITROGEN 29 mg/dL (7-18); CALCIUM 7.9 mg/dL (8.5-10.1); CARBON DIOXIDE 35.4 mmol/L (21-32); CHLORIDE 103 mmol/L (98-107); COR CA(FOR HYPOALB) 9.5 mg/dL (8.5-10.1); COR NA(FOR HYPERGLY) 140 mmol/L (136-145); CREATININE 0.91 mg/dL (0.55-1.02); SODIUM 137 mmol/L (136-145); TOTAL PROTEIN 4.1 g/dL (6.4-8.2); eGFR NON BLACK RACES > 60 (>60)
[2020-03-30] MEDS ORDERED: HEMOCYTE-PLUS PO SCH (09:00)
[2020-03-30] MEDS: PULMICORT NEB TX 0.5 MG NEB SCH ×2 (09:20→21:14)
[2020-03-30] MEDS: ACCUNEB 1.25 MG NEBULE NEB SCH ×4 (09:20→21:14)
[2020-03-30] MEDS: MUCOMYST (RESPIRATORY USE ONLY) NEB SCH ×2 (09:20→21:14)
[2020-03-30] MEDS: NS 1000 ML 1,000 ML IV SCH ×2 (09:40→21:57)
[2020-03-30] MEDS: DIFLUCAN PO SCH (12:55)
[2020-03-30] MEDS: ZINC SULFATE PO SCH (12:57)
[2020-03-30] MEDS: ATIVAN TAB 0.5 MG PO SCH ×2 (12:57→20:48)
[2020-03-30] MEDS: PROTONIX TAB 40 MG PO SCH (13:01)
[2020-03-30] MEDS: HEMOCYTE-PLUS PO SCH (13:02)
[2020-03-30] MEDS: LOPRESSOR TAB 25 MG PO SCH ×2 (13:02→22:02)
[2020-03-30] MEDS: PEPCID TAB 20 MG PO SCH (13:03)
[2020-03-30] MEDS: VITAMIN D3 125 mcg (5,000 UNITS) PO SCH (13:03)
[2020-03-30] MEDS: ZyrTEC TAB 10 MG PO SCH (13:04)
[2020-03-30] MEDS: MILK OF MAGNESIA PO SCH ×2 (13:04→20:48)
[2020-03-30 13:11] LABS: BASOPHILS % (AUTO) 0.2 % (0.2-1.0); EOSINOPHILS # (AUTO) 0.1 x10^3/uL (0.0-0.2); EOSINOPHILS % (AUTO) 0.7 % (0.9-2.9); HEMATOCRIT 20.7 % (36.0-47.0); LYMPHOCYTES % (AUTO) 17.4 % (21.0-51.0); MEAN CORPUSCULAR HEMOGLOBIN 28.4 pg (27.0-34.0); MEAN CORPUSCULAR HGB CONC 32.3 g/dL (33.0-35.0); MEAN CORPUSCULAR VOLUME 87.8 fL (80.0-100.0); MEAN PLATELET VOLUME 10.2 fL (7.4-11.0); MONOCYTES # (AUTO) 1.4 x10^3/uL (0.3-0.8); MONOCYTES % (AUTO) 12.2 % (0.0-13.0); NEUTROPHILS # (AUTO) 8.2 x10^3/uL (2.2-4.8); NEUTROPHILS % (AUTO) 69.5 % (42.0-75.0); PLATELET COUNT 87 X10^3/uL (150.0-450.0); RED BLOOD COUNT 2.36 X10^6/uL (3.5-5.4); RED CELL DISTRIBUTION WIDTH 12.3 % (11.6-16.5); WHITE BLOOD COUNT 11.8 X10^3/uL (3.6-10.0)
[2020-03-30 13:14] LABS: HEMOGLOBIN 6.7 g/dL (12.0-16.0)
[2020-03-30] MEDS: K-DUR TAB 20 MEQ PO SCH ×2 (13:47→22:02)
[2020-03-30] MEDS: PREDNISONE TAB 10 MG PO SCH ×2 (13:48→20:48)
[2020-03-30] MEDS ORDERED: NS 500 ML IV 500 ML IV ONE (13:56)
[2020-03-30] MEDS: TYLENOL 325 MG TAB PO PRN (18:16)
[2020-03-30] MEDS: BENADRYL INJ 50 MG VIAL IVP PRN (18:16)
[2020-03-30] MEDS: SNACK - Diabetic Appropriate PO SCH (20:00)
[2020-03-30] MEDS: LIPITOR TAB 80 MG PO SCH (20:46)
[2020-03-30] MEDS: MELATONIN PO SCH (20:46)
[2020-03-30] MEDS: SINGULAIR TAB 10 MG PO SCH (20:47)
[2020-03-30] MEDS: COLACE CAP 100 MG PO SCH (20:48)
[2020-03-31] MEDS: TESSALON PERLES PO SCH ×3 (05:54→21:09)
[2020-03-31] MEDS: HumuLIN R SUBCUT PRN ×4 (06:04→21:30)
[2020-03-31 07:13] LABS: BASOPHILS # (AUTO) 0.1 X10^3/uL (0.0-0.1); BASOPHILS % (AUTO) 0.4 % (0.2-1.0); EOSINOPHILS # (AUTO) 0.1 x10^3/uL (0.0-0.2); EOSINOPHILS % (AUTO) 0.9 % (0.9-2.9); LYMPHOCYTES # (AUTO) 2.1 X10^3/uL (1.3-2.9); LYMPHOCYTES % (AUTO) 14.2 % (21.0-51.0); MEAN CORPUSCULAR HEMOGLOBIN 28.5 pg (27.0-34.0); MEAN CORPUSCULAR HGB CONC 32.3 g/dL (33.0-35.0); MEAN CORPUSCULAR VOLUME 88.3 fL (80.0-100.0); MEAN PLATELET VOLUME 10.5 fL (7.4-11.0); MONOCYTES # (AUTO) 1.2 x10^3/uL (0.3-0.8); MONOCYTES % (AUTO) 8.2 % (0.0-13.0); NEUTROPHILS # (AUTO) 11.1 x10^3/uL (2.2-4.8); NEUTROPHILS % (AUTO) 76.3 % (42.0-75.0); PLATELET COUNT 94 X10^3/uL (150.0-450.0); RED BLOOD COUNT 2.09 X10^6/uL (3.5-5.4); RED CELL DISTRIBUTION WIDTH 12.7 % (11.6-16.5); WHITE BLOOD COUNT 14.6 X10^3/uL (3.6-10.0)
[2020-03-31 07:17] LABS: HEMATOCRIT 18.4 % (36.0-47.0)
[2020-03-31 07:19] LABS: ALANINE AMINOTRANSFERASE 41 Units/L (12-78); ALBUMIN 2.1 g/dL (3.4-5.0); ALKALINE PHOSPHATASE 46 Units/L (46-116); ASPARTATE AMINO TRANSFERASE 31 Units/L (15-37); BLOOD UREA NITROGEN 26 mg/dL (7-18); CALCIUM 7.8 mg/dL (8.5-10.1); CARBON DIOXIDE 27.9 mmol/L (21-32); CHLORIDE 104 mmol/L (98-107); COR CA(FOR HYPOALB) 9.3 mg/dL (8.5-10.1); COR NA(FOR HYPERGLY) 140 mmol/L (136-145); CREATININE 0.92 mg/dL (0.55-1.02); SODIUM 137 mmol/L (136-145); TOTAL PROTEIN 4.3 g/dL (6.4-8.2); eGFR NON BLACK RACES > 60 (>60)
[2020-03-31] MEDS: ATIVAN TAB 0.5 MG PO SCH ×2 (09:03→22:45)
[2020-03-31] MEDS: DIFLUCAN PO SCH (09:03)
[2020-03-31] MEDS: PEPCID TAB 20 MG PO SCH (09:04)
[2020-03-31] MEDS: HEMOCYTE-PLUS PO SCH (09:04)
[2020-03-31] MEDS: MILK OF MAGNESIA PO SCH ×2 (09:04→21:08)
[2020-03-31] MEDS: PROTONIX TAB 40 MG PO SCH ×2 (09:05→16:20)
[2020-03-31] MEDS: PREDNISONE TAB 10 MG PO SCH ×2 (09:05→21:06)
[2020-03-31] MEDS: K-DUR TAB 20 MEQ PO SCH ×2 (09:05→21:08)
[2020-03-31] MEDS: VITAMIN D3 125 mcg (5,000 UNITS) PO SCH (09:06)
[2020-03-31] MEDS: ZINC SULFATE PO SCH (09:07)
[2020-03-31] MEDS: ZyrTEC TAB 10 MG PO SCH (09:07)
[2020-03-31] MEDS: ACCUNEB 1.25 MG NEBULE NEB SCH ×4 (10:31→22:30)
[2020-03-31] MEDS: MUCOMYST (RESPIRATORY USE ONLY) NEB SCH ×2 (10:32→22:30)
[2020-03-31] MEDS: PULMICORT NEB TX 0.5 MG NEB SCH ×2 (10:32→22:30)
[2020-03-31] MEDS: LOPRESSOR TAB 25 MG PO SCH ×2 (14:23→21:08)
[2020-03-31] MEDS: NS 1000 ML 1,000 ML IV SCH (14:23)
--- NOTE | 2020-03-31 15:48 | RAD ---
Chest AP portableIndication: Central line placementCOMPARISONFebruary 2020FINDINGSThere is no pneumothorax. Left subclavian catheter tip is over the SVC. There is no dense consolidation. Heart size is normal.IMPRESSIONProminent heart size without other acute abnormality. Subclavian catheter projects as expected.Electronically signed by: ABA LICEA (Mar 31, 2020 15:45:55)
[2020-03-31] MEDS ORDERED: NS 250 ML IV 250 ML IV ONE (16:17)
--- NOTE | 2020-03-31 16:17 | CT ---
HISTORYAnemiaSTUDYCHEST W/O CONCOMPARISONChest radiograph, March 31, 2020TECHNIQUEAxial non-contrast images of the chest with coronal and sagittal reformats.Radiation dose: 1469.60 mGy-cm total DLPFINDINGSNo pericardial effusion.Coronary artery calcifications.Atherosclerotic changes to the aorta without aneurysm.No mediastinal or hilar adenopathy.Thyroid appears normal.Central airways are widely patent.Esophagus appears normal.Left subclavian central line tip is at the cavoatrial junction.Limited evaluation of the upper abdomen is grossly unremarkable given the lack of administration of intravenous contrast.Mildly lobulated soft tissue mass in the posterior aspect of the left breast measuring 4.23 x 2.02 x 3.62 cm (axial image 36 and sagittal image 15).Enlarged left axillary lymph nodes with the largest measuring 2.23 x 1.85 x 3.68 cm (axial image 24 and sagittal image 14).No acute osseous abnormality.Mild centrilobular emphysema.No focal consolidation.No pleural effusion.No pneumothorax.Multilevel mild degenerative disc disease without vertebral body height loss.Nonspecific sclerotic foci in the posterior central aspect of the T6 vertebral body.IMPRESSION1. No acute intrathoracic abnormality identified.2. Lobulated mass in the left posterior breast with enlarged left axillary lymph nodes is concerning for a malignancy with metastatic disease. The sclerotic foci in the posterior aspect of the T6 vertebral body could represent metastatic disease.3. Mild centrilobular emphysema.Electronically signed by: Alejandro Coelho (Mar 31, 2020 16:15:16)
[2020-03-31] MEDS: BENADRYL INJ 50 MG VIAL IVP PRN ×2 (16:18)
--- NOTE | 2020-03-31 16:22 | CT ---
HISTORYAnemiaSTUDYABDOMEN/PELVIS W/O CONCOMPARISONCT chest without contrast, March 31, 2020TECHNIQUENon-contrasted axial CT images of the abdomen and pelvis were obtained and reformatted into coronal and sagittal planes for further evaluation.Radiation dose: 1469.60 mGy-cm total DLPFINDINGSPartially imaged mass in the posterior aspect of the left breast; see the chest CT report performed the same day for further discussion.No pericardial effusion.No focal airspace disease in the lung bases.Mild centrilobular emphysema.Peripheral vascular calcifications.Edema in the adductor musculature in the right medial upper thigh; partially imaged.Mild diffuse body wall edema.Stomach and proximal small bowel appear normal.Solid visceral organs of the upper abdomen are grossly unremarkable given the lack of administration of intravenous contrast.Gallbladder appears normal without biliary dilatation.Atherosclerotic changes to the abdominal aorta and iliac vessels without aneurysm.Unremarkable appearance of the kidneys and ureters.Urinary bladder appears grossly normal.Calcified uterine fibroids.Otherwise, the reproductive structures are unremarkable.Colonic diverticulosis without diverticulitis.Otherwise, unremarkable appearance of the large and small bowel.Normal appendix in the right lower quadrant.No free fluid.No pneumoperitoneum.No adenopathy.Mild multilevel degenerative disc disease in the thoracolumbar spine without vertebral body height loss.No acute osseous abnormality.IMPRESSION1. No acute intra-abdominal abnormality detected.2. Partially imaged posterior left breast mass is concerning for a malignancy. See the same day chest CT for further discussion.3. Soft tissue fullness in the adductor musculature in the medial aspect of the right lower extremity. Findings are nonspecific but could represent an intramuscular hematoma. Correlate for recent procedure or patient symptoms.4. Mild centrilobular emphysema.5. Colonic diverticulosis without diverticulitis.Electronically signed by: Alejandro Coelho (Mar 31, 2020 16:20:00)
[2020-03-31] MEDS: PROTONIX INJ 40 MG VIAL IVP SCH ×2 (16:35→21:07)
[2020-03-31] MEDS: TYLENOL 325 MG TAB PO PRN (16:44)
[2020-03-31] MEDS: SNACK - Diabetic Appropriate PO SCH (21:00)
[2020-03-31] MEDS: LIPITOR TAB 80 MG PO SCH (21:06)
[2020-03-31] MEDS: SINGULAIR TAB 10 MG PO SCH (21:06)
[2020-03-31] MEDS: MELATONIN PO SCH (21:07)
[2020-03-31] MEDS: COLACE CAP 100 MG PO SCH (21:07)
[2020-04-01] MEDS ORDERED: NS 250 ML IV 250 ML IV ONE (01:04)
[2020-04-01 04:48] LABS: BASOPHILS # (AUTO) 0.1 X10^3/uL (0.0-0.1); BASOPHILS % (AUTO) 0.3 % (0.2-1.0); EOSINOPHILS # (AUTO) 0.1 x10^3/uL (0.0-0.2); EOSINOPHILS % (AUTO) 0.8 % (0.9-2.9); HEMATOCRIT 27.2 % (36.0-47.0); HEMOGLOBIN 8.9 g/dL (12.0-16.0); LYMPHOCYTES # (AUTO) 1.7 X10^3/uL (1.3-2.9); LYMPHOCYTES % (AUTO) 10.4 % (21.0-51.0); MEAN CORPUSCULAR HEMOGLOBIN 29.5 pg (27.0-34.0); MEAN CORPUSCULAR HGB CONC 32.7 g/dL (33.0-35.0); MEAN CORPUSCULAR VOLUME 90.4 fL (80.0-100.0); MEAN PLATELET VOLUME 9.3 fL (7.4-11.0); MONOCYTES # (AUTO) 1.1 x10^3/uL (0.3-0.8); MONOCYTES % (AUTO) 6.7 % (0.0-13.0); NEUTROPHILS # (AUTO) 13.5 x10^3/uL (2.2-4.8); NEUTROPHILS % (AUTO) 81.8 % (42.0-75.0); PLATELET COUNT 96 X10^3/uL (150.0-450.0); RED BLOOD COUNT 3.01 X10^6/uL (3.5-5.4); RED CELL DISTRIBUTION WIDTH 13.6 % (11.6-16.5); WHITE BLOOD COUNT 16.6 X10^3/uL (3.6-10.0)
[2020-04-01 05:03] LABS: ALANINE AMINOTRANSFERASE 39 Units/L (12-78); ALBUMIN 2.1 g/dL (3.4-5.0); ALKALINE PHOSPHATASE 47 Units/L (46-116); ASPARTATE AMINO TRANSFERASE 28 Units/L (15-37); BLOOD UREA NITROGEN 20 mg/dL (7-18); CALCIUM 7.8 mg/dL (8.5-10.1); CARBON DIOXIDE 28.7 mmol/L (21-32); CHLORIDE 104 mmol/L (98-107); COR CA(FOR HYPOALB) 9.3 mg/dL (8.5-10.1); COR NA(FOR HYPERGLY) 137 mmol/L (136-145); CREATININE 0.98 mg/dL (0.55-1.02); SODIUM 135 mmol/L (136-145); TOTAL PROTEIN 4.4 g/dL (6.4-8.2); eGFR NON BLACK RACES 58 (>60)
[2020-04-01] MEDS: TESSALON PERLES PO SCH (05:15)
[2020-04-01] MEDS: NS 1000 ML 1,000 ML IV SCH (05:15)
[2020-04-01 05:30] LABS: ANISOCYTOSIS 1+; BASOPHILS % (MANUAL) 1 % (0-1); PLATELET MORPHOLOGY COMMENT NORMAL (NORMAL)
[2020-04-01] MEDS: ACCUNEB 1.25 MG NEBULE NEB SCH (09:20)
[2020-04-01] MEDS: PULMICORT NEB TX 0.5 MG NEB SCH (09:20)
[2020-04-01] MEDS: MUCOMYST (RESPIRATORY USE ONLY) NEB SCH (09:20)
[2020-04-01] MEDS: PROTONIX INJ 40 MG VIAL IVP SCH (09:40)
[2020-04-01] MEDS: PEPCID TAB 20 MG PO SCH (10:12)
[2020-04-01] MEDS: PREDNISONE TAB 10 MG PO SCH (10:12)
[2020-04-01] MEDS: ZINC SULFATE PO SCH (10:12)
[2020-04-01] MEDS: DIFLUCAN PO SCH (10:12)
[2020-04-01] MEDS: ZyrTEC TAB 10 MG PO SCH (10:12)
[2020-04-01] MEDS: LOPRESSOR TAB 25 MG PO SCH (10:12)
[2020-04-01] MEDS: HEMOCYTE-PLUS PO SCH (10:12)
[2020-04-01] MEDS: VITAMIN D3 125 mcg (5,000 UNITS) PO SCH (10:12)
[2020-04-01] MEDS: ATIVAN TAB 0.5 MG PO SCH (13:24)
[2020-04-01] MEDS: MILK OF MAGNESIA PO SCH (13:27)
[2020-04-01 16:27] VITALS: BP 121/59
--- NOTE | 2020-05-21 22:30 | PCM.PROG ---
Progress Note - Progress Note for Day of Date of Exam: 03/29/20 - Subjective Subjective: IS BEING TREATED FOR PNEUMONIA DUE TO COVID-19 AND HYPOXIA. TODAY, SHE IS LYING IN BED ON MORNING ROUNDS. SHE AWAKENS AND RESPONDS TO VERBAL STIMULI. SHE CONTINUES TO BE DISORIENTED, BUT IS PLEASANT AT THIS TIME. SHE DOES HAVE A PMH OF DEMENTIA AND ALZHEIMERS. SHE CONTINUES WITH WEAKNESS THIS MORNING. SHE IS CURRENTLY ON NASAL CANNULA AT 2-3LPM TODAY. HER SATURATIONS HAVE BEEN 92-96% ON NASAL CANNULA THIS MORNING AND THROUGHOUT THE NIGHT. ON EXAMINATION, HEART IS REGULAR IN RATE AND RHYTHM. BILATERAL LUNGS ARE NOTED WITH DIMINISHED LUNG SOUNDS THROUGHOUT. ABDOMEN IS ROUND, SOFT, AND NON-TENDER WITH NORMAL BOWEL SOUNDS NOTED IN ALL QUADRANTS. HER VITALS THIS MORNING ARE: 97.4- 84-18-100%-113/58. LABS WERE OBTAINED. ABNORMAL LAB VALUES INCLUDE THE FOLLOWING: WBC 14.8, RBC 2.76, HGB 7.9, HCT 24.7, PLT COUNT 119, D-DIMER 1.08, BUN 39, CREATININE 1.17, GLUCOSE 408, CALCIUM 8.1, AST 41, TOTAL PROTEIN 4.7, ALBUMIN 2.4, GLOBULIN 2.3, PRE-ALBUMIN 41.4. ABG WAS OBTAINED AND REVEALED: PH 7.550, PC02 41, P02 56, HC03 35.9, 02 SAT 92, BASE EXCESS 12.3, FI02 21.0. A CHEST XRAY WAS OBTAINED AND REVEALED: The cardiac and mediastinal contours appear stable. No significant change in patchy left medial base opacity. Left costophrenic sulcus is not completely in the field of view. No discernible pneumothorax. SHE IS CURRENTLY RECEIVING NS AT 75 ML/HR, TPN, LEVAQUIN 750MG IV Q48, PULMICORT NEB TX BID, ALBUTEROL NEB TX QID, MUCOMYST IN NEBS QID, LOPRESSOR 5MG IV Q6H, CLONIDINE 0.3MG TD PATCH, ATORVASTATIN 80MG PO HS, TESSALON PERLES TID, TUSSIONEX 5ML PO Q12H PRN, DIFLUCAN 100MG PO DAILY, MAGIC MOUTHWASH QID, MILK OF MAG 30ML PO BID, COLACE 100MG PO HS, MELATONIN 10MG PO HS, SOLU-MEDROL 125MG IV Q6H, SINGULAIR 10MG PO HS, PROTONIX 40MG IV BID, THIAMINE 200MG IV BID, ZINC SULFATE 220MG PO DAILY, ZYRTEC 10MG PO HS, VITAMIN D3 DAILY, PEPCID 20MG IV DAILY, LOVENOX 60MG SC BID, ATIVAN 0.5MG BID MAGDALENA, ZYPREXA 2.5MG PO BID. THE POTASSIUM AND MAGNESIUM PROTOCOLS, AND HUMULIN R SLIDING SCALE. WE WILL CONTINUE WITH CURRENT PLAN OF CARE TODAY. FAMILY HAS DECIDED THAT PATIENT WILL GO HOME WITH A FAMILY MEMBER AFTER DISCHARGE. TODAY, WE WILL START HEMOCYTE PLUS 1 TABLET PO DAILY. OTHERWISE, WE PLAN TO FOLLOW UP WITH AM LABS, CHEST XRAY, ABG, AND CONTINUE TO MONITOR. TIME SPENT ON CLINICAL ASSESSMENT, REVIEWING LABS AND IMAGING, DECISION MAKING, AND DOCUMENTATION GREATER THAN 75 MINUTES - Past Medical Family Social History Past Med/Fam/Surg Hx: No changes since H&P Allergies: Allergies No Known Drug Allergies Allergy (Verified 03/13/20 15:38) - Review of Systems ROS: No change since H&P - Vital Signs and I&O's Vital Signs: Temperature 97.4 F Pulse Rate [Right Radial] 67 Pulse Rate 73 Respiratory Rate 18 Blood Pressure [Left Arm] 121/59 Blood Pressure [Right Arm] 97/55 Blood Pressure 102/58 O2 Sat by Pulse Oximetry 100 - Physical Exam Oriented: Person Eyes: Normal Ear: Normal Nose: Normal Throat: Normal Respiratory: Generalized, Diminished Cardiovascular: Normal : Normal Auscultation: Bowel Sounds: Normal Palpation: Normal Tenderness: Normal Skin: Normal, Decreased Turgur Musculoskeletal: Normal Psychiatric: Agitation Mood Description: Calm Affect: Normal Speech Pattern: Clear, Appropriate - Laboratory and Diagnostics Result Diagrams: 04/01/20 04:30 04/01/20 04:30 Labs: 03/18/20 11:55 Blood Blood Culture - Final 03/18/20 11:20 Blood Blood Culture - Final Laboratory WBC 16.6 X10^3/uL (3.6-10.0) H 04/01/20 04:30 RBC 3.01 X10^6/uL (3.5-5.4) L 04/01/20 04:30 Hgb 8.9 g/dL (12.0-16.0) L D 04/01/20 04:30 Hct 27.2 % (36.0-47.0) L 04/01/20 04:30 MCV 90.4 fL (80.0-100.0) 04/01/20 04:30 MCH 29.5 pg (27.0-34.0) 04/01/20 04:30 MCHC 32.7 g/dL (33.0-35.0) L 04/01/20 04:30 RDW 13.6 % (11.6-16.5) 04/01/20 04:30 Plt Count 96 X10^3/uL (150.0-450.0) L 04/01/20 04:30 Plt Count Comment Decreased (ADEQUATE) A 04/01/20 04:30 MPV 9.3 fL (7.4-11.0) 04/01/20 04:30 Neut % (Auto) 81.8 % (42.0-75.0) H 04/01/20 04:30 Lymph % (Auto) 10.4 % (21.0-51.0) L 04/01/20 04:30 [place] % (Auto) 6.7 % (0.0-13.0) 04/01/20 04:30 Eos % (Auto) 0.8 % (0.9-2.9) L 04/01/20 04:30 Baso % (Auto) 0.3 % (0.2-1.0) 04/01/20 04:30 Neut # (Auto) 13.5 x10^3/uL (2.2-4.8) H 04/01/20 04:30 Lymph # (Auto) 1.7 X10^3/uL (1.3-2.9) 04/01/20 04:30 [place] # (Auto) 1.1 x10^3/uL (0.3-0.8) H 04/01/20 04:30 Eos # (Auto) 0.1 x10^3/uL (0.0-0.2) 04/01/20 04:30 Baso # (Auto) 0.1 X10^3/uL (0.0-0.1) 04/01/20 04:30 Absolute Nucleated RBC 0.1 /100WBC 04/01/20 04:30 Total Counted 100 04/01/20 04:30 Neutrophils % (Manual) 85 % (39-76) H 04/01/20 04:30 Band Neutrophils % 2 % (0-10) 03/29/20 05:50 Lymphocytes % (Manual) 8 % (13-43) L 04/01/20 04:30 Monocytes % (Manual) 6 % (4-9) 04/01/20 04:30 Basophils % (Manual) 1 % (0-1) 04/01/20 04:30 Nucleated RBCs 1 03/22/20 04:50 Plt Morphology Comment Normal (NORMAL) 04/01/20 04:30 RBC Morphology Abnormal (NORMAL) A 04/01/20 04:30 Dimorphic RBCs 1+ 04/01/20 04:30 Anisocytosis 1+ A 04/01/20 04:30 PT 14.4 SECONDS (11.8-14.3) 03/18/20 05:00 INR Target Range - 03/18/20 05:00 INR 1.15 (0.8-1.3) 03/18/20 05:00 APTT 128.9 SECONDS (22.9-36.5) H 03/23/20 08:36 PTT Comment - 03/23/20 08:36 D-Dimer 1.08 ug/ml (0.0-0.57) H* 03/29/20 05:50 Sample Site Lr 03/29/20 05:05 ABG pH 7.550 (7.35-7.45) H 03/29/20 05:05 ABG pCO2 41.0 mmHg (35.0-45.0) 03/29/20 05:05 ABG pO2 56.0 mmHg (80.0-100.0) L 03/29/20 05:05 ABG HCO3 35.9 mmol/L (22-26) H* 03/29/20 05:05 ABG O2 Saturation 92.0 % (90-100) 03/29/20 05:05 ABG Base Excess 12.3 mmol/L (-2.0-2.0) H 03/29/20 05:05 [place] Test Pos 03/29/20 05:05 A-a Gradient 42.0 mmHg 03/29/20 05:05 FiO2 21.0 03/29/20 05:05 Blood Gas Comments Eladio well ae 03/29/20 05:05 Sodium 135 mmol/L (136-145) L 04/01/20 04:30 Corrected Sodium 137 mmol/L (136-145) 04/01/20 04:30 Potassium 5.3 mmol/L (3.5-5.1) H 04/01/20 04:30 Chloride 104 mmol/L (98-107) 04/01/20 04:30 Carbon Dioxide 28.7 mmol/L (21-32) 04/01/20 04:30 BUN 20 mg/dL (7-18) H 04/01/20 04:30 Creatinine 0.98 mg/dL (0.55-1.02) 04/01/20 04:30 Est GFR (MDRD) Af Amer > 60 (>60) 04/01/20 04:30 Est GFR (MDRD) Non-Af 58 (>60) L 04/01/20 04:30 Glucose 183 mg/dL (65-99) H 04/01/20 04:30 POC Glucose (mg/dL) 247 mg/dL (65-99) H 03/31/20 20:14 Calcium 7.8 mg/dL (8.5-10.1) L 04/01/20 04:30 Corrected Calcium 9.3 mg/dL (8.5-10.1) 04/01/20 04:30 Phosphorus 2.0 mg/dL (2.6-4.7) L 03/26/20 05:50 Magnesium 2.5 mg/dL (1.7-2.9) 03/26/20 05:50 Iron 134 ug/dL (50-175) 03/30/20 06:06 Transferrin 105 mg/dL (202-364) L 03/30/20 06:06 Ferritin 585 ng/mL (8-252) H 03/30/20 06:06 Total Bilirubin 1.10 mg/dL (0.2-1.0) H 04/01/20 04:30 AST 28 Units/L (15-37) 04/01/20 04:30 ALT 39 Units/L (12-78) 04/01/20 04:30 Alkaline Phosphatase 47 Units/L (46-116) 04/01/20 04:30 C-Reactive Protein < 0.50 mg/L (0-3.0) 04/01/20 04:30 B-Natriuretic Peptide 26.9 pg/mL (0-79) 03/29/20 05:50 Total Protein 4.4 g/dL (6.4-8.2) L 04/01/20 04:30 Albumin 2.1 g/dL (3.4-5.0) L 04/01/20 04:30 Globulin 2.3 g/dL (2.5-4.5) L 04/01/20 04:30 Albumin/Globulin Ratio 0.9 Ratio (1.1-2.1) L 04/01/20 04:30 Prealbumin 41.4 mg/dL (18-35.7) H 03/29/20 05:50 Triglycerides 62 mg/dL (0-150) 03/26/20 05:50 Vitamin B12 812 pg/mL (193-986) 03/30/20 06:06 Folate 11.0 ng/mL (>8.6) 03/30/20 06:06 Specimen Type Catherized urine 03/18/20 16:00 Urine Color Yellow (YELLOW) 03/18/20 16:00 Urine Appearance Clear (CLEAR) 03/18/20 16:00 Urine pH 6.0 (5.0 - 8.0) 03/18/20 16:00 Ur Specific [place] 1.025 (1.000-1.030) 03/18/20 16:00 Urine Protein 1+ (NEGATIVE) 03/18/20 16:00 Urine Glucose (UA) Negative (NEGATIVE) 03/18/20 16:00 Urine Ketones Negative (NEGATIVE) 03/18/20 16:00 Urine Occult Blood Negative (NEGATIVE) 03/18/20 16:00 Urine Nitrite Negative (NEGATIVE) 03/18/20 16:00 Urine Bilirubin Negative (NEGATIVE) 03/18/20 16:00 Urine Urobilinogen Normal (NORMAL) 03/18/20 16:00 Ur Leukocyte Esterase Negative (NEGATIVE) 03/18/20 16:00 Urine RBC None seen /HPF (0-3) 03/18/20 16:00 Urine WBC None seen /HPF (0-5) 03/18/20 16:00 Ur Squamous Epith Cells Negative /HPF (NEGATIVE) 03/18/20 16:00 Urine Bacteria Negative /HPF (NEGATIVE) 03/18/20 16:00 Coarse Granular Casts Rare /HPF (NEGATIVE) 03/18/20 16:00 Ur Culture Indicated? No/not indicated 03/18/20 16:00 Stool Description Ifob 03/31/20 04:41 Stl Occult Blood (IFOB) Negative (NEGATIVE) 03/31/20 04:41 Blood Type A POSITIVE 03/29/20 09:41 Antibody Screen Negative 03/29/20 09:41 Crossmatch See Detail 03/29/20 09:41 - Plan (1) Pneumonia due to COVID-19 virus Status: Acute Plan: NS AT 75 ML/HR, TPN, LEVAQUIN 750MG IV Q48, PULMICORT NEB TX BID, ALB UTEROL NEB TX QID, MUCOMYST IN NEBS QID, LOPRESSOR 5MG IV Q6H, CLONIDINE 0.3MG TD PATCH, ATORVASTATIN 80MG PO HS, TESSALON PERLES TID, TUSSIONEX 5ML PO Q12H PRN, DIFLUCAN 100MG PO DAILY, MAGIC MOUTHWASH QID, MILK OF MAG 30ML PO BID, COLACE 100MG PO HS, MELATONIN 10MG PO HS, SOLU-MEDROL 125MG IV Q6H, SINGULAIR 10MG PO HS, PROTONIX 40MG IV BID, THIAMINE 200MG IV BID, ZINC SULFATE 220MG PO DAILY, ZYRTEC 10MG PO HS, VITAMIN D3 DAILY, PEPCID 20MG IV DAILY, LOVENOX 60MG SC BID, ATIVAN 0.5MG IV BID MAGDALENA, THE POTASSIUM AND MAGNESIUM PROTOCOLS, ZYPREXA 2.5MG BID, AND HUMULIN R SLIDING SCALE (2) Hypoxia Status: Acute (3) Anemia Status: Acute Qualifiers: Anemia type: iron deficiency Iron deficiency anemia type: unspecified iron deficiency Qualified Code(s): D50.9 - Iron deficiency anemia, unspecified Plan: MONITOR H&H, HEMOCYTE PLUS 1 TABLET DAILY
== END 2020-04-01 12:50 | disposition home health service (06) | DRG 177 ==
LOC: ER 01:59 → MED/SURG 05:07
PROVIDERS: ADMIT Internal Medicine; ATTEND Internal Medicine
DX: D50.8 Other iron deficiency anemias; E11.65 Type 2 diabetes mellitus with hyperglycemia; I87.2 Venous insufficiency (chronic) (peripheral); F02.81 Dementia in other diseases classified elsewhere, unspecified severity, with behavioral disturbance; R06.02 Shortness of breath; R45.1 Restlessness and agitation; I10 Essential (primary) hypertension; K21.9 Gastro-esophageal reflux disease without esophagitis; R79.89 Other specified abnormal findings of blood chemistry; J12.82 Pneumonia due to coronavirus disease 2019; E78.2 Mixed hyperlipidemia; E87.6 Hypokalemia; J96.01 Acute respiratory failure with hypoxia; Z66 Do not resuscitate; Z78.1 Physical restraint status; J44.9 Chronic obstructive pulmonary disease, unspecified; R79.82 Elevated C-reactive protein (CRP); G30.9 Alzheimer's disease, unspecified; U07.1 COVID-19